=== PATIENT | male | born 1940 | race Caucasian/White ===

== ENCOUNTER 2018-09-10 04:30 | Inpatient (IN) ==
[2018-09-10] MEDS ORDERED: MethylPREDNISolone Sod Succinate Inj 125 MG/2 ML Vial IV.PUSH ONE (05:02)
--- NOTE | 2018-09-10 05:02 | ED ---
HPI General Chief Complaint: Respiratory Symptoms Stated Complaint: Sob Time Seen by Provider: 09/10/18 04:48 Source: patient Mode of arrival: ambulatory Limitations: no limitations History of Present Illness The patient is a 78-year-old male who presents to the emergency department for shortness of breath. The patient states he is visiting from [place] , came down for 2 weeks via car. The patient states that he developed symptoms 2 days ago including cough, chest congestion, and shortness of breath. The patient states his symptoms are worse with lying supine, slightly improved with sitting upright, but slightly exacerbated with exertion. The patient does note a fever yesterday of 99.4, has felt warm at home, but no fevers greater than 100.4. He denies any significant lower extremity edema or history of pulmonary embolism/DVT. The patient is anticoagulated with warfarin for history of atrial fibrillation. The patient denies any known history of COPD or congestive heart failure. The patient quit smoking 40 years ago. He denies any significant chest pain. He does not have a local primary physician. Symptoms are moderate and progressive. The patient went to an urgent care yesterday where he was diagnosed with bronchitis and placed on prednisone, Tessalon Perles, cough syrup, and doxycycline. The patient has not taken the dose of prednisone as of yet. Complaint: Reports shortness of breath Onset (ago): day(s) Context: Reports recent illness Severity: moderate Consistency/Duration: progressively worsening Relieving factors: nothing Exacerbating factors: lying flat and exertion Associated symptoms: Reports cough and wheezing Treatment prior to arrival: Reports other Related Data Home oxygen amount: none Home Medications Medication Instructions Recorded Confirmed benzonatate 100 mg PO TID PRN 09/10/18 09/10/18 codeine-guaifenesin [Robafen AC] 10 ml PO Q4-6H PRN 09/10/18 09/10/18 doxycycline hyclate 100 mg PO DAILY 09/10/18 09/10/18 prednisone 20 mg PO BID 09/10/18 09/10/18 Allergies Allergy/AdvReac Type Severity Reaction Status Date / Time No Known Allergies Allergy Verified 09/10/18 04:33 Review of Systems ROS: all other systems reviewed are negative [facility] Medical History Medical History A-fib (Acute) Achilles tendon injury (Acute) Diabetes (Acute) FH: radiation therapy (Acute) FHx: cholecystectomy (Acute) GERD (gastroesophageal reflux disease) (Acute) Glaucoma (Acute) Gout (Acute) Hypertension (Acute) Pacemaker (Acute) Prostate cancer (Acute) Stage 4 chronic kidney disease (Acute) Surgical History Surgical History H/O cataract removal with insertion of prosthetic lens (Acute) H/O hernia repair (Acute) H/O: hemorrhoidectomy (Acute) Hx of appendectomy (Acute) Social History Social History Substance History: No History of Abuse Second Hand Smoke Exposure: No Smoking Status: Former smoker How Often Do You Have a Drink Containing Alcohol: Monthly or less Recent Travel in [facility] within the Last 8 Weeks: No Recent Out of Country Travel within the Last 8 Weeks: No Immunization History Tetanus Immunization: Unsure Exam Narrative Exam Narrative: GENERAL: Awake, alert, pleasant 78-year-old male who appears his stated age and is in no acute respiratory distress. SKIN: Focused skin assessment warm/dry. HEAD: Atraumatic. Normocephalic. EYES: Pupils equal and round. No scleral icterus. No injection or drainage. ENT: No nasal bleeding or discharge. Mucous membranes pink and moist. NECK: Trachea midline. No JVD. CARDIOVASCULAR: Irregularly irregular, heart rate in the 90s. RESPIRATORY: No accessory muscle use. Clear to auscultation. Breath sounds equal bilaterally. GASTROINTESTINAL: Abdomen soft, non-tender, nondistended. MUSCULOSKELETAL: No obvious deformities. No clubbing. No cyanosis. The left calf appears slightly larger than the right, but both calves are soft to touch, negative Homans sign. NEUROLOGICAL: Awake and alert. No obvious cranial nerve deficits. Motor grossly within normal limits. Normal speech. PSYCHIATRIC: Appropriate mood and affect; insight and judgment normal. Course Initial Documented Vital Signs Temperature 99 F 09/10/18 04:34 Pulse Rate 83 09/10/18 04:34 Respiratory Rate 16 09/10/18 04:34 Blood Pressure 120/57 L 09/10/18 04:34 Pulse Oximetry 95 09/10/18 04:34 Last Documented Vital Signs Temperature 99 F 09/10/18 04:34 Pulse Rate 76 09/10/18 06:00 Respiratory Rate 18 02/15/19 06:00 Blood Pressure 146/70 H 09/10/18 06:00 Pulse Oximetry 94 L 09/10/18 06:00 Medical Decision Making MDM Narrative Medical decision making narrative: IV was placed, labs are drawn and sent, and the patient was placed on cardiac telemetry monitoring and continuous pulse oximetry monitoring. The patient had PT/INR sent to lab to evaluate PE/DVT risk. Chest x-ray was obtained. EKG was ordered and interpreted. The patient was administered Solu-Medrol 125 mg intravenously a DuoNeb x1. Chest x-ray reveals questionable bilateral interstitial infiltrates. BNP was elevated in the 600s. EKG revealed sinus rhythm with first-degree AV block, right bundle branch block. The patient has CKD 4, troponin was elevated greater than 2. The patient has no chest pain but does have shortness of breath. The patient denies any known history of coronary artery disease or previous stents. Patient is unable to have a CTA pulmonary angiogram secondary to CKD 4, INR was subtherapeutic at 1.7, therefore, VQ scan was ordered. A call was placed to the on-call band log mill and carriage operator at 6:12 AM in regards to possible anticoagulation as he is already on a call was placed to the on-call medical service for admission. I discussed the patient with Dr. Vasques who agrees with admission. I discussed the patient with Dr. Brewster, after discussion it was agreed there would be no further anticoagulation with an INR of 1.7. After discussion it was agreed the patient would have the nuc med VQ scan to evaluate for possible PE. The patient will be admitted to the medical service. I had a discussion with the patient and his and friend at bedside. Medical Screen Exam Complete: Yes Emergency Medical Condition: Yes Differential Diagnosis Differential Diagnosis: Differential diagnosis includes bronchitis, COPD exacerbation, pneumonia, pleural effusion, congestive heart failure, cardiomyopathy, pulmonary embolism, deconditioning. Lab Data Result diagrams: 09/10/18 05:05 09/10/18 05:05 Lab Results 09/10/18 09/10/18 09/10/18 Range/Units 05:05 05:05 05:05 WBC 8.7 (4.0-11.0) th/mm3 RBC 2.99 L (4.50-5.90) mil/mm3 Hgb 10.5 L (13.0-17.0) gm/dL Hct 30.2 L (39.0-51.0) % MCV 101.0 H (80.0-100.0) fL MCH 35.2 H (27.0-34.0) pg MCHC 34.8 (32.0-36.0) % RDW 14.0 (11.6-17.2) % Plt Count 141 L (150-450) th/mm3 MPV 7.4 (7.0-11.0) fL Neut % (Auto) 78.0 H (16.0-70.0) % Lymph % (Auto) 4.6 L (9.0-44.0) % Atkinson % (Auto) 15.5 H (0.0-8.0) % Eos % (Auto) 1.2 (0.0-4.0) % Baso % (Auto) 0.7 (0.0-2.0) % Neut # (Auto) 6.8 (1.8-7.7) th/mm3 Lymph # (Auto) 0.4 L (1.0-4.8) th/mm3 Atkinson # (Auto) 1.3 H (0.0-0.9) th/mm3 Eos # (Auto) 0.1 (0.0-0.4) th/mm3 Baso # (Auto) 0.1 (0.0-0.2) th/mm3 WBC Differential . Differential Comment Auto diff final PT (9.8-11.6) sec INR Ratio APTT (23.4-31.7) sec Sodium 137 (136-145) meq/L Potassium 4.0 (3.5-5.1) meq/L Chloride 106 (98-107) meq/L Carbon Dioxide 23.0 (21.0-32.0) meq/L Anion Gap 8 (5-15) meq/L BUN 40 H (7-18) mg/dL Creatinine 3.34 H (0.60-1.30) mg/dL Estimated GFR 18 L (>89) mL/min Random Glucose 175 H (74-106) mg/dL Calcium 8.1 L (8.5-10.1) mg/dL Magnesium 1.7 (1.5-2.5) mg/dL Total Bilirubin 0.8 (0.2-1.0) mg/dL AST 33 (15-37) U/L ALT 17 (12-78) U/L Alkaline Phosphatase 87 (45-117) U/L Total Creatine Kinase 686 H (39-308) U/L CK-MB (CK-2) 5.1 H (0.5-3.6) ng/mL CK-MB (CK-2) % 0.7 (0.0-4.0) % Troponin I 2.08 H* (0.02-0.05) ng/mL B-Natriuretic Peptide 696 H (0-100) pg/mL Total Protein 7.0 (6.4-8.2) g/dL Albumin 3.0 L (3.4-5.0) g/dL 09/10/18 Range/Units 05:05 WBC (4.0-11.0) th/mm3 RBC (4.50-5.90) mil/mm3 Hgb (13.0-17.0) gm/dL Hct (39.0-51.0) % MCV (80.0-100.0) fL MCH (27.0-34.0) pg MCHC (32.0-36.0) % RDW (11.6-17.2) % Plt Count (150-450) th/mm3 MPV (7.0-11.0) fL Neut % (Auto) (16.0-70.0) % Lymph % (Auto) (9.0-44.0) % Atkinson % (Auto) (0.0-8.0) % Eos % (Auto) (0.0-4.0) % Baso % (Auto) (0.0-2.0) % Neut # (Auto) (1.8-7.7) th/mm3 Lymph # (Auto) (1.0-4.8) th/mm3 Atkinson # (Auto) (0.0-0.9) th/mm3 Eos # (Auto) (0.0-0.4) th/mm3 Baso # (Auto) (0.0-0.2) th/mm3 WBC Differential Differential Comment PT 17.1 H (9.8-11.6) sec INR 1.7 Ratio APTT 53.7 H (23.4-31.7) sec Sodium (136-145) meq/L Potassium (3.5-5.1) meq/L Chloride (98-107) meq/L Carbon Dioxide (21.0-32.0) meq/L Anion Gap (5-15) meq/L BUN (7-18) mg/dL Creatinine (0.60-1.30) mg/dL Estimated GFR (>89) mL/min Random Glucose (74-106) mg/dL Calcium (8.5-10.1) mg/dL Magnesium (1.5-2.5) mg/dL Total Bilirubin (0.2-1.0) mg/dL AST (15-37) U/L ALT (12-78) U/L Alkaline Phosphatase (45-117) U/L Total Creatine Kinase (39-308) U/L CK-MB (CK-2) (0.5-3.6) ng/mL CK-MB (CK-2) % (0.0-4.0) % Troponin I (0.02-0.05) ng/mL B-Natriuretic Peptide (0-100) pg/mL Total Protein (6.4-8.2) g/dL Albumin (3.4-5.0) g/dL Imaging Data Radiologist's impression: Chest X-Ray 09/10/18 04:59 CONCLUSION: Bilateral interstitial infiltrates ECG Data EKG Prior to Arrival: No Attestation: I personally reviewed and interpreted this ECG as follows: Interpretation: EKG reveals sinus rhythm with first-degree AV block. HI interval 256 ms. Right bundle branch block. Q waves noted in lead V1. Discharge Plan Discharge Disposition Patient Disposition: ED Admit(ED Internal Use Only) Discharge Condition Condition: Stable Discharge Order Discharge Orders: ED Use Only Admit Order (Routine); Ordered 09/10/18 Ordered By: Godwin Decker Discharge Details Diagnosis: Non-ST elevation MS (NSTEMI), Dyspnea Physicians Team ED Provider: Godwin Decker Rxs /Orders / Referrals /Forms Prescriptions: No Action doxycycline hyclate 100 mg Capsule 100 mg PO DAILY RF: 0 prednisone 20 mg Tablet 20 mg PO BID RF: 0 benzonatate 100 mg Capsule 100 mg PO TID PRN (Reason: Cough) RF: 0 codeine-guaifenesin [Robafen AC] 10-100 mg/5 mL Liquid 10 ml PO Q4-6H PRN (Reason: Cough) RF: 0 Status ED Status: Admitted Patient
[2018-09-10 05:20] LABS: Baso # (Auto) 0.1 th/mm3 (0.0-0.2); Baso % (Auto) 0.7 % (0.0-2.0); Eos # (Auto) 0.1 th/mm3 (0.0-0.4); Eos % (Auto) 1.2 % (0.0-4.0); Hematocrit 30.2 % (39.0-51.0); Hemoglobin 10.5 gm/dL (13.0-17.0); Lymph # (Auto) 0.4 th/mm3 (1.0-4.8); Lymph % (Auto) 4.6 % (9.0-44.0); Mean Corpuscular HGB Conc 34.8 % (32.0-36.0); Mean Corpuscular Hemoglobin 35.2 pg (27.0-34.0); Mean Platelet Volume 7.4 fL (7.0-11.0); Mono # (Auto) 1.3 th/mm3 (0.0-0.9); Mono % (Auto) 15.5 % (0.0-8.0); Neut # (Auto) 6.8 th/mm3 (1.8-7.7); Platelet Count 141 th/mm3 (150-450); Red Blood Count 2.99 mil/mm3 (4.50-5.90); White Blood Count 8.7 th/mm3 (4.0-11.0)
[2018-09-10 05:35] LABS: Activated Partial Thrombo Time 53.7 sec (23.4-31.7); INR 1.7 Ratio; Prothrombin Time 17.1 sec (9.8-11.6)
--- NOTE | 2018-09-10 05:39 | XR ---
EXAM DATE: 09/10/2018 5:12 AM EST AGE/SEX: 78 years / Male INDICATIONS: Short of breath. CLINICAL DATA: This is the patient's initial encounter. Patient reports that signs and symptoms have been present for 1 day and indicates a pain score of 10/10. MEDICAL/SURGICAL HISTORY: Hypertension. Diabetes mellitus type II. Carcinoma, prostatic. Kid blaise disease. A-fib. Cholecystectomy. Appendectomy. Pacemaker. Hernia repair. COMPARISON: No prior exams available for comparison. FINDINGS: A pacing implement is present with control pack over left upper chest. Mild fairly symmetric intersti tial prominence bilaterally of undetermined chronicity. No evidence of consolidative airspace disease or significant effusion. Cardiac contours are satisfactory for technique and projection. CONCLUSION: Bilateral interstitial infiltrates Electronically signed by: Foster Thakur MD Board Certified Radiologist 09/10/2018 5:37 AM EST
[2018-09-10 05:47] LABS: Alanine Aminotransferase 17 U/L (12-78); Anion Gap 8 meq/L (5-15); Aspartate Aminotransferase 33 U/L (15-37); Blood Urea Nitrogen 40 mg/dL (7-18); Calcium 8.1 mg/dL (8.5-10.1); Chloride 106 meq/L (98-107); Glomerular Filtration Rate 18 mL/min (>89); Glucose,Random 175 mg/dL (74-106); Magnesium 1.7 mg/dL (1.5-2.5); Sodium 137 meq/L (136-145)
[2018-09-10 05:51] LABS: Alkaline Phosphatase 87 U/L (45-117); Creatine Kinase 686 U/L (39-308)
[2018-09-10 05:58] LABS: Troponin I 2.08 ng/mL (0.02-0.05)
[2018-09-10 06:10] LABS: CKMB Percent 0.7 % (0.0-4.0); Creatine Kinase MB 5.1 ng/mL (0.5-3.6)
[2018-09-10] MEDS ORDERED: Bisacodyl 10 MG Supp RECTAL PRN (06:26)
[2018-09-10] MEDS ORDERED: Acetaminophen 325 MG Tablet PO PRN (06:26)
--- NOTE | 2018-09-10 08:14 | P.CONCA ---
History of Present Illness Service: cardiology Consult date: 09/10/18 Reason for Consult: elevated troponin Primary Care Provider: Kenrick Wood Chief Complaint: SOB History of Present Illness: 78 yo male with CKD stage IV, pacemaker, paroxysmal atrial fibrillation and DMII presents with progressive SOB and cough x several days found to have elevated troponin level. He is in [place] visiting from [place] and developed cough 3 days ago, he went to urgent care 2 days ago and diagnosed with bronchitis. Last night he developed right-sided anterior chest discomfort described as sharp and non-radiating that felt worse with laying supine; non- exertional. His cough became semi-productive which prompted him to come to the ED. Initial troponin level elevated at 2.08, second level currently pending. EKG shows first degree AV block but no concerning ST segment or T wave changes. chest films show bilateral infiltrate. He is currently resting comfortably with head of bed elevated. He denies prior coronary artery disease; no palpitations or edema. Review of Systems All other systems reviewed negative except as stated in HPI [facility] - History History Provided By: Patient - Medical History Medical History: Medical History (Last Reviewed 09/10/18 @ 05:05 by Godwin Decker MD) A-fib Achilles tendon injury Diabetes FH: radiation therapy FHx: cholecystectomy GERD (gastroesophageal reflux disease) Glaucoma Gout Hypertension Pacemaker Prostate cancer Stage 4 chronic kidney disease - Surgical History Surgical History: Surgical History (Last Reviewed 09/10/18 @ 05:05 by Godwin Decker MD) H/O cataract removal with insertion of prosthetic lens H/O hernia repair H/O: hemorrhoidectomy Hx of appendectomy - Tobacco History Second Hand Smoke Exposure: No Tobacco Use In Past 30 Days: No Smoking Status: Former smoker - Alcohol History How Often Do You Have a Drink Containing Alcohol: Monthly or less - Substance Use History Substance History: No History of Abuse - Travel History Recent Travel in the [place] Within the Last 8 Weeks: No Recent Travel Out of the Country Within the Last 8 Weeks: No - Immunization History Tetanus Immunization: Unsure Medications and Allergies Allergies Allergy/AdvReac Type Severity Reaction Status Date / Time No Known Allergies Allergy Verified 09/10/18 04:33 Home Medications Medication Instructions Recorded Confirmed Type benzonatate 100 mg PO TID PRN 09/10/18 09/10/18 History codeine-guaifenesin [Robafen AC] 10 ml PO Q4-6H PRN 09/10/18 09/10/18 History doxycycline hyclate 100 mg PO DAILY 09/10/18 09/10/18 History prednisone 20 mg PO BID 09/10/18 09/10/18 History Active Medications: Active Medications Acetaminophen (Tylenol) 650 mg PO Q4H PRN PRN Reason: Temp > 100.4 Al Hydroxide/Mg Hydroxide (Milk Of Magnesia Liq) 30 ml PO Q12H PRN PRN Reason: Mild Constipation Bisacodyl (Dulcolax Supp) 10 mg RECTAL DAILY PRN PRN Reason: SEVERE CONSITIPATION Lactulose (Lactulose Liq) 30 ml PO DAILY PRN PRN Reason: SEVERE CONSITIPATION Ondansetron HCl (Zofran Inj) 4 mg IV.PUSH Q6H PRN PRN Reason: NAUSEA OR VOMITING Sennosides (Senokot) 17.2 mg PO Q12H PRN PRN Reason: Moderate Constipation Sodium Chloride (Ns Flush) 2 ml IV.FLUSH BID CORINE Sodium Chloride (Ns Flush) 2 ml IV.FLUSH PRN PRN PRN Reason: FLUSH AFTER USING IV ACCESS Exam Vital signs: Vital Signs 09/10/18 04:34 09/10/18 05:00 09/10/18 05:07 Temperature 99 F Pulse Rate 83 78 78 Respiratory Rate 16 16 Blood Pressure 120/57 L Pulse Oximetry 95 94 L 09/10/18 06:00 Temperature Pulse Rate 76 Respiratory Rate 18 Blood Pressure 146/70 H Pulse Oximetry 94 L Intake & Output 09/09/18 09/10/18 09/10/18 18:59 06:59 18:59 Weight 97.522 kg Narrative: GENERAL: SKIN: Warm and dry. HEAD: Normocephalic. EYES: No scleral icterus. No injection or drainage. NECK: Supple, trachea midline. No JVD or lymphadenopathy. CARDIOVASCULAR: Regular rate and rhythm without murmurs, gallops, or rubs. RESPIRATORY: bilateral exertional rhonchi. No accessory muscle use. GASTROINTESTINAL: Abdomen soft, non-tender, nondistended. MUSCULOSKELETAL: No cyanosis, or edema. Results 09/10/18 05:05 09/10/18 05:05 Cardiac Enzymes 09/10/18 09/10/18 Range/Units 05:05 05:05 AST 33 (15-37) U/L CK-MB (CK-2) 5.1 H (0.5-3.6) ng/mL Troponin I 2.08 H* (0.02-0.05) ng/mL B-Natriuretic Peptide 696 H (0-100) pg/mL Coagulation 09/10/18 09/10/18 Range/Units 05:05 05:05 PT 17.1 H (9.8-11.6) sec APTT 53.7 H (23.4-31.7) sec B-Natriuretic Peptide 696 H (0-100) pg/mL CBC 09/10/18 Range/Units 05:05 WBC 8.7 (4.0-11.0) th/mm3 RBC 2.99 L (4.50-5.90) mil/mm3 Hgb 10.5 L (13.0-17.0) gm/dL Hct 30.2 L (39.0-51.0) % Plt Count 141 L (150-450) th/mm3 Neut # (Auto) 6.8 (1.8-7.7) th/mm3 Lymph # (Auto) 0.4 L (1.0-4.8) th/mm3 [place] # (Auto) 1.3 H (0.0-0.9) th/mm3 Eos # (Auto) 0.1 (0.0-0.4) th/mm3 Baso # (Auto) 0.1 (0.0-0.2) th/mm3 Comprehensive Metabolic Panel 09/10/18 Range/Units 05:05 Sodium 137 (136-145) meq/L Potassium 4.0 (3.5-5.1) meq/L Chloride 106 (98-107) meq/L Carbon Dioxide 23.0 (21.0-32.0) meq/L BUN 40 H (7-18) mg/dL Creatinine 3.34 H (0.60-1.30) mg/dL Calcium 8.1 L (8.5-10.1) mg/dL AST 33 (15-37) U/L ALT 17 (12-78) U/L Alkaline Phosphatase 87 (45-117) U/L Total Protein 7.0 (6.4-8.2) g/dL Albumin 3.0 L (3.4-5.0) g/dL Intake and Output 02/14/19 02/15/19 02/15/19 22:59 06:59 14:59 Other: Weight 97.522 kg - Imaging and Cardiology Imaging: Impressions Chest X-Ray 09/10/18 04:59 CONCLUSION: Bilateral interstitial infiltrates Assessment and Plan - Assessment (1) Non-ST elevation NV (NSTEMI) Code(s): I21.4 - Non-ST elevation (NSTEMI) myocardial infarction Status: Acute - Plan 78 yo male with CKD stage IV, pacemaker, paroxysmal atrial fibrillation and DMII presents with progressive SOB and cough x several days found to have elevated troponin level. He is in [place] visiting from [place] and developed cough 3 days ago, he went to urgent care 2 days ago and diagnosed with bronchitis. Last night he developed right-sided anterior chest discomfort described as sharp and non-radiating that felt worse with laying supine; non- exertional. His cough became semi-productive which prompted him to come to the ED. Initial troponin level elevated at 2.08, second level currently pending. EKG shows first degree AV block but no concerning ST segment or T wave changes. chest films show bilateral infiltrate. He is currently resting comfortably with head of bed elevated. He denies prior coronary artery disease; no palpitations or edema. NSTEMI- initial troponin elevated @ 2.08. Will await serial levels and monitor trend along with serial EKGs to check for ischemic changes. chest pain appears atypical and likely due to lung infection assess 2D echo afib- currently in NSR, cont warfarin at home dosage. INR 1.7 CKD stage IV- patient sees nephrology at home in [place], he is uncertain of baseline kidney function. - Attending Attestation Non-ST elevation myocardial infarction Unclear to the reason for troponin elevation as his symptoms do not sound classic at all for angina. He did have progressive shortness of breath which may be an anginal equivalent. Patient also had subtherapeutic INR so pulmonary embolism is another consideration. Given his chronic kidney disease and creatinine of greater than 3.0 mg/dL, any contrast administration will put him at high risk for contrast-induced nephropathy and possible dialysis. Patient is scheduled for a ventilation perfusion scan this morning. If the ventilation perfusion scan is negative, then we will trend troponin. 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 If his troponin trends worse, he is likely then going to need an ischemic evaluation consisting of a cardiac catheterization. A Lexiscan would require 48 hours between the ventilation perfusion scan and Lexiscan timing. Cardiac catheterization with administration of contrast would certainly put him at risk for kidney failure requiring hemodialysis, which obviously he wants to avoid at all costs. We will follow up on 2D transthoracic echocardiogram. We will order for bilateral lower extremity duplex ultrasound to rule out deep vein thrombosis.
--- NOTE | 2018-09-10 10:41 | US ---
EXAM DATE: 09/10/2018 10:31 AM EST AGE/SEX: 78 years / Male INDICATIONS: Shortness of breath. Recent car travel. CLINICAL DATA: This is the patient's initial encounter. Patient reports that signs and symptoms have been present for 2 days and indicates a pain score of 0/10. MEDICAL/SURGICAL HISTORY: . Afib. Diabetic. Radiation. GERD. Glaucoma. HTN. Prostate canc er. CKD. . Cholecystectomy. Pacemaker. Cataract. Hernia repair. Hemorrhoidectomy. Appendectomy. COMPARISON: No prior exams available for comparison. TECHNIQUE: Venous ultrasound of both lower extremities was performed from the inguinal ligament to t he proximal calf. Real-time, color Doppler and spectral tracing, compression and augmentation techni ques were used. FINDINGS: Right Leg: Normal compression of the deep venous system from the inguinal region to the proximal zainab f. No echogenic clot is seen. Normal response of the venous system to augmentation and respiration. N ote is made of mild reflux involving the greater saphenous vein. Left Leg: Normal compression of the deep venous system from the inguinal region to the proximal calf . No echogenic clot is seen. Normal response of the venous system to augmentation and respiration. Other: None. CONCLUSION: 1. The study is negative for bilateral lower extremity deep venous thrombosis. Electronically signed by: Milo Gordon MD Board Certified Radiologist 09/10/2018 10:40 AM EST
--- NOTE | 2018-09-10 10:48 | P.HPIM ---
History of Present Illness Primary Care Physician: Kenrick Wood Chief Complaint: SOB and cough History of Present Illness: This is a 78-year-old male with history of diabetes mellitus, atrial fibrillation status post pacemaker placement, and chronic kidney disease stage IV presenting with shortness of breath and cough. Of note , patient is visiting here from [place] and is recently being worked up to rule out multiple myeloma. Patient started having shortness of breath associated with cough with occasional sputum production that is greenish about 3 days ago with note of congestion but no orthopnea or lower extremity swelling. There is no note of nausea, vomiting, fever, chills but his sister who he drove in the car with has upper respiratory tract infection. 2 days ago, he presented to the urgent care center who prescribed him doxycycline, prednisone and antitussives. Patient had single dose of everything that was prescribed but did not afford any relief. Yesterday, patient also started having right-sided chest discomfort which lasted for about 5 hours, described as sharp, nonradiating, not associated with nausea, vomiting, palpitations, blurring of vision. Of note, he drove down from [place] on August 26 for 3 days and arrived here August 29. There is no note of leg swelling after the drive. Also of particular importance, he was supposed to get his bone biopsy as part of his workup for multiple myeloma and has been off Coumadin for about 2 weeks. He restarted Coumadin before driving south. There is no history of pulmonary embolism, DVT, NC, stroke, CHF. He stopped smoking about 40 years ago. No significant family history. Diagnosis (1) Non-ST elevation [place] (NSTEMI): Inpatient Certification Inpatient Certification: I certify that the inpatient services were ordered in accordance with Medicare regulations governing the order. This includes certification that hospital inpatient services are reasonable and necessary and in the case of services not specified as inpatient-only under 42 CFR 419.22(n), that they are appropriately provided as inpatient services in accordance to with the 2-midnight benchmark under 43 CFR 412.3(e) Estimated Total Length of Stay (Days): 2 Plans for Post Hospital Care: Home Review of Systems Review of Systems: all other systems reviewed are negative ON LICENSE OF [facility] Medical History Medical History A-fib (Acute) Achilles tendon injury (Acute) Diabetes (Acute) FH: radiation therapy (Acute) FHx: cholecystectomy (Acute) GERD (gastroesophageal reflux disease) (Acute) Glaucoma (Acute) Gout (Acute) Hypertension (Acute) Pacemaker (Acute) Prostate cancer (Acute) Stage 4 chronic kidney disease (Acute) Surgical History Surgical History H/O cataract removal with insertion of prosthetic lens (Acute) H/O hernia repair (Acute) H/O: hemorrhoidectomy (Acute) Hx of appendectomy (Acute) Social History Social History Substance History: No History of Abuse Second Hand Smoke Exposure: No Smoking Status: Former smoker How Often Do You Have a Drink Containing Alcohol: Monthly or less Recent Travel in [facility] within the Last 8 Weeks: No Recent Out of Country Travel within the Last 8 Weeks: No Immunization History Tetanus Immunization: Unsure Medications and Allergies Allergies Allergy/AdvReac Type Severity Reaction Status Date / Time No Known Allergies Allergy Verified 09/10/18 04:33 Home Medications Medication Instructions Recorded Confirmed Type benzonatate 100 mg PO TID PRN 09/10/18 09/10/18 History codeine-guaifenesin [Robafen AC] 10 ml PO Q4-6H PRN 09/10/18 09/10/18 History doxycycline hyclate 100 mg PO DAILY 09/10/18 09/10/18 History prednisone 20 mg PO BID 09/10/18 09/10/18 History Active Medications: Active Medications Acetaminophen (Tylenol) 650 mg PO Q4H PRN PRN Reason: Temp > 100.4 Al Hydroxide/Mg Hydroxide (Milk Of Magnesia Liq) 30 ml PO Q12H PRN PRN Reason: Mild Constipation Bisacodyl (Dulcolax Supp) 10 mg RECTAL DAILY PRN PRN Reason: SEVERE CONSITIPATION Lactulose (Lactulose Liq) 30 ml PO DAILY PRN PRN Reason: SEVERE CONSITIPATION Ondansetron HCl (Zofran Inj) 4 mg IV.PUSH Q6H PRN PRN Reason: NAUSEA OR VOMITING Sennosides (Senokot) 17.2 mg PO Q12H PRN PRN Reason: Moderate Constipation Sodium Chloride (Ns Flush) 2 ml IV.FLUSH BID CORINE Last Admin: 09/10/18 09:51 Dose: 2 ml Sodium Chloride (Ns Flush) 2 ml IV.FLUSH PRN PRN PRN Reason: FLUSH AFTER USING IV ACCESS Physical Exam Vital signs: Vital Signs 09/10/18 04:34 09/10/18 05:00 09/10/18 05:07 Temperature 99 F Pulse Rate 83 78 78 Respiratory Rate 16 16 Blood Pressure 120/57 L Pulse Oximetry 95 94 L 09/10/18 06:00 09/10/18 09:00 Temperature Pulse Rate 76 74 Respiratory Rate 18 15 Blood Pressure 146/70 H 137/63 Pulse Oximetry 94 L 95 Intake & Output 09/09/18 09/10/18 09/10/18 18:59 06:59 18:59 Weight 97.522 kg Narrative: Not in distress, on room air Pupils equal round reactive, pink conjunctivae No JVD Regular rate and rhythm, no murmurs Bilateral rhonchi, occasional crackles in the left base. Abdomen soft, nontender No edema, no skull tenderness Alert awake and oriented x3, no cranial nerve deficits, no focal deficits. Results Labs CBC & Chem 7: 09/10/18 05:05 09/10/18 05:05 Imaging Impressions Chest X-Ray 09/10/18 04:59 CONCLUSION: Bilateral interstitial infiltrates Caprini VTE Risk Assessment Caprini VTE Risk Assessment: Moderate/High Risk (score >= 2) Caprini Risk Assessment Model: Point Value = 1 Point Value = 2 Point Value = 3 Point Value = 5 Age 41-60 Minor surgery BMI > 25 kg/m2 Swollen legs Varicose veins or History of unexplained or recurrent spontaneous Oral contraceptives or hormone replacement Sepsis (< 1 month) Serious lung disease, including pneumonia (< 1 month) Abnormal pulmonary function Acute myocardial infarction Congestive heart failure (< 1 month) History of inflammatory bowel disease Medical patient at bed rest Age 61-74 Arthroscopic surgery Major open surgery (> 45 min) Laparoscopic surgery (> 45 min) Malignancy Confined to bed (> 72 hours) Immobilizing plaster cast Central venous access Age >= 75 History of VTE Family history of VTE Factor V Leiden Prothrombin [id number] Lupus anticoagulant Anticardiolipin antibodies Elevated serum homocysteine Heparin-induced thrombocytopenia Other congenital or acquired thrombophilia Stroke (< 1 month) Elective arthroplasty Hip, pelvis, or leg fracture Acute spinal cord injury (< 1 month) Prophylaxis Regimen: Total Risk Factor Score Risk Level Prophylaxis Regimen 0-1 Low Early ambulation 2 Moderate Order ONE of the following: *Sequential Compression Device (SCD) *Heparin 5000 units SQ BID 3-4 Higher Order ONE of the following medications: *Heparin 5000 units SQ TID *Enoxaparin/Lovenox 40 mg SQ daily (WT < 150 kg, CrCl > 30 mL/min) *Enoxaparin/Lovenox 30 mg SQ daily (WT < 150 kg, CrCl > 10-29 mL/min) *Enoxaparin/Lovenox 30 mg SQ BID (WT < 150 kg, CrCl > 30 mL/min) AND/OR *Sequential Compression Device (SCD) 5 or more Highest Order ONE of the following medications: *Heparin 5000 units SQ TID (Preferred with Epidurals) *Enoxaparin/Lovenox 40 mg SQ daily (WT < 150 kg, CrCl > 30 mL/min) *Enoxaparin/Lovenox 30 mg SQ daily (WT < 150 kg, CrCl > 10-29 mL/min) *Enoxaparin/Lovenox 30 mg SQ BID (WT < 150 kg, CrCl > 30 mL/min) AND *Sequential Compression Device (SCD) Assessment and Plan (1) Non-ST elevation [place] (NSTEMI): Code(s): I21.4 - Non-ST elevation (NSTEMI) myocardial infarction Status: Acute Plan This is a 78-year-old male with history of diabetes mellitus, chronic kidney disease stage IV, atrial fibrillation status post pacemaker placement, recently being worked up for multiple myeloma presenting with progressive shortness of breath and cough for 3 days after driving about 2 weeks ago from [place]. Shortness of breath and cough, likely secondary to congestive heart failure exacerbation versus pneumonia - doubt COPD, no wheezing. BNP is elevated at 696 , chest x-ray showed bilateral infiltrates, no leukocytosis but with neutrophilic predominance and monocytosis. Patient also being worked up for multiple myeloma hence may be immunocompromised. Patient may have relatively low white blood cell count because of possible multiple myeloma. We will elect to treat for possible pneumonia and possible CHF for now, check Echo if shows diastolic dysfunction. Continue ceftriaxone and azithromycin, stop steroids, doubt COPD. Renal function precludes using a CTA of the chest to rule out PE, VQ scan low probability for PE based on presentation. Negative DVT on bilateral leg Doppler ultrasound. Non-ST elevated myocardial infarction-could be demand mediated, EKG showed first -degree AV block, troponin II 0.08, cardiology is following, echocardiogram as above. Continue serial troponin and EKG, chest pain could be from infection. If troponin is decreasing, may elect medical management per cardiology. If troponin gets worse, will need cardiac catheterization versus Lexiscan.Might proceed with a Lexiscan but would require 48 hours between VQ scan before doing a Lexiscan. Defer heparinization to cardiology. Atrial fibrillation-status post pacemaker placement, currently in sinus rhythm, continue Coumadin, pharmacy to dose, INR is 1.7 Chronic kidney disease stage IV-unsure baseline kidney function, monitor closely. Check I's and O's. DVT prophylaxis: Heparin
[2018-09-10 12:37] LABS: Activated Partial Thrombo Time 52.9 sec (23.4-31.7); INR 1.8 Ratio; Prothrombin Time 17.9 sec (9.8-11.6)
--- NOTE | 2018-09-10 13:01 | NM ---
EXAM DATE: 09/10/2018 12:58 PM EST AGE/SEX: 78 years / Male INDICATIONS: Short of breath. CLINICAL DATA: This is the patient's initial encounter. Patient reports that signs and symptoms have been present for 1 day and indicates a pain score of 4/10. MEDICAL/SURGICAL HISTORY: Carcinoma, prostatic. Renal failure, chronic. Hypertension. Pacemak er. Cholecystectomy. COMPARISON: [facility], CHEST 1V SINGLE AP, 09/10/2018. . DOSE: 2.3 mCi Tc99m DTPA aerosol 8.1 mCi Tc99m MAA IV TECHNIQUE: Following five minutes of tidal breathing of DTPA aerosol, planar images of the lungs wer e performed in eight projections. The patient was then injected with MAA, and eight-view perfusion s can was performed. FINDINGS: There is a homogeneous pattern of aerosol delivery to the periphery of both lungs. No focal ventilat ory defects are seen. There is minimal central deposition of aerosol. The perfusion lung scan demonstrates a homogenous pattern of uptake in both lungs. No segmental or s ubsegmental defects are seen. CONCLUSION: 1. Low probability pulmonary embolism. Electronically signed by: Milo Rodas MD Board Certified Radiologist 09/10/2018 1:00 PM EST
[2018-09-10 13:24] LABS: Troponin I 4.5 ng/mL (0.02-0.05)
[2018-09-10 13:36] LABS: CKMB Percent 1.8 % (0.0-4.0); Creatine Kinase MB 11.5 ng/mL (0.5-3.6)
--- NOTE | 2018-09-10 14:38 | ECG ---
Date Performed: 09/10/2018 Time Performed: 06:07:42 PTAGE: 78 years EKG: Sinus rhythm WITH FIRST DEGREE AV BLOCK MARKED LEFT AXIS DEVIATION RIGHT BUNDLE BRANCH BLOCK POSSIBLE ANTERIOR MY OCARDIAL INFARCTION ABNORMAL ECG NO PREVIOUS TRACING DOCTOR: Joaquina Flores Interpretating Date/Time 09/10/2018 14:32:56
[2018-09-10] MEDS: Azithromycin 250 MG Tablet PO SCH (15:07)
--- NOTE | 2018-09-10 15:41 | ECG ---
Date Performed: 09/10/2018 Time Performed: 11:36:33 PTAGE: 78 years EKG: Sinus rhythm WITH FIRST DEGREE AV BLOCK MARKED LEFT AXIS DEVIATION RIGHT BUNDLE BRANCH BLOCK ABNORMAL ECG Compare d to prior electrocardiogram, No significant change within the constraints of artifact on both EKGs. PREVIOUS TRACING : 09/10/2018 06.07 DOCTOR: Ancelmo Padilla Interpretating Date/Time 09/10/2018 15:41:01
[2018-09-10] MEDS ORDERED: Morphine Inj 4 MG/ML Vial IV.PUSH PRN (15:47)
[2018-09-10] MEDS ORDERED: Aspirin 325 MG Tablet PO ONE (15:53)
[2018-09-10] MEDS ORDERED: Nitroglycerin SL (Override) 0.4 MG Tab SL ONE (15:54)
[2018-09-10] MEDS ORDERED: Heparin 10,000 UNITS/10 ML Vial (for IV use) IV.PUSH STA (15:55)
[2018-09-10] MEDS ORDERED: Nitroglycerin Drip Premix 50 MG/250 ML BOTTLE IV.CONT PRN (15:55)
--- NOTE | 2018-09-10 16:05 | ECHRPT ---
Indication: SHORTNESS OF BREATH CONCLUSIONS Normal left ventricular size. Wall thickness is normal. Nonobstructive prominent basal hypertrophy is present consistent with sigmoid septum. The left ventricular systolic function is mildly reduced with an estimated ejection fraction in the range of 45- 50%. A pacemaker wire is noted. Mild thickening of the mitral valve leaflets. moderate to severe mitral valve regurgitation. There is trace tricuspid valve regurgitation. The estimated pulmonary arterial pressure is 34 mmHg. BP: / HR: Rhythm: Sinus/Paced MEASUREMENTS (Male / Female) Normal Values Technical Quality:Fair 2D ECHO LV Diastolic Diameter PLAX 5.6 cm 4.2 - 5.9 / 3.9 - 5.3 cm LV Systolic Diameter PLAX 4.1 cm IVS Diastolic Thickness 1.0 cm 0.6 - 1.0 / 0.6 - 0.9 cm LVPW Diastolic Thickness 1.1 cm 0.6 - 1.0 / 0.6 - 0.9 cm LV Relative Wall Thickness 0.4 RV Internal Dim ED PLAX 2.6 cm LVOT Diameter 2.0 cm Aortic Root Diameter 3.8 cm LA Systolic Diameter LX 3.9 cm 3.0 - 4.0 / 2.7 - 3.8 cm DOPPLER AV Peak Velocity 129.0 cm/s AV Peak Gradient 6.7 mmHg LVOT Peak Velocity 114.0 cm/s LVOT Peak Gradient 5.2 mmHg AV Area Cont Eq pk 2.8 cm Mitral E Point Velocity 106.0 cm/s Mitral A Point Velocity 104.0 cm/s Mitral E to A Ratio 1.0 LV E' Lateral Velocity 11.0 cm/s Mitral E to LV E' Lateral Ratio 9.6 LV E' Septal Velocity 7.7 cm/s Mitral E to LV E' Septal Ratio 13.8 TR Peak Velocity 245.0 cm/s TR Peak Gradient 24.0 mmHg Right Atrial Pressure 10.0 mmHg Pulmonary Artery Systolic Pressu 34.0 mmHg Right Ventricular Systolic Press 34.0 mmHg PV Peak Velocity 117.0 cm/s PV Peak Gradient 5.5 mmHg FINDINGS LEFT VENTRICLE Normal left ventricular size. Wall thickness is normal. Nonobstructive prominent basal hypertrophy is present consistent with sigmoid septum. The left ventricular systolic function is mildly reduced with an estimated ejection fraction in the range of 45- 50%. RIGHT VENTRICLE A pacemaker wire is noted. LEFT ATRIUM The left atrial size is normal. RIGHT ATRIUM The right atrial size is normal. ATRIAL SEPTUM Normal atrial septal thickness without atrial level shunting by limited color doppler interrogation. AORTA The aortic root and proximal ascending aorta are normal in size on limited imaging. MITRAL VALVE Mild thickening of the mitral valve leaflets. [id number] mitral valve regurgitation. AORTIC VALVE Trileaflet aortic valve. No aortic valve stenosis or regurgitation. TRICUSPID VALVE There is trace tricuspid valve regurgitation. The estimated pulmonary arterial pressure is 34 mmHg. PULMONARY VALVE No pulmonary valve regurgitation or stenosis. VESSELS The inferior vena cava is normal in size. PERICARDIUM No pericardial effusion. Sunny Burleson MD, FACC, [facility] (Electronically Signed) Final Date:10 September 2018 16:04
[2018-09-10] MEDS: Heparin Drip 25,000 UNIT/250 ML BAG IV.CONT PRN (16:43)
[2018-09-10 17:07] LABS: Activated Partial Thrombo Time 52.1 sec (23.4-31.7); INR 1.8 Ratio; Prothrombin Time 18.7 sec (9.8-11.6)
--- NOTE | 2018-09-10 17:34 | ECG ---
Date Performed: 09/10/2018 Time Performed: 16:02:34 PTAGE: 78 years EKG: Sinus rhythm with 1st degree A-V block. Left axis deviation RBBB with left anterior fascicular block Cannot rule out Inferior infarct - age undetermined Abnormal ECG No significant change from prior electrocardiogr am. PREVIOUS TRACING : 09/10/2018 11.36 DOCTOR: Ancelmo Padilla Interpretating Date/Time 09/10/2018 17:32:50
[2018-09-10] MEDS ORDERED: Dextrose 50% in Water 50 ML Vial IV.PUSH PRN (19:07)
[2018-09-10 19:51] LABS: CKMB Percent 1.6 % (0.0-4.0); Creatine Kinase MB 9.7 ng/mL (0.5-3.6)
[2018-09-10 20:10] LABS: Troponin I 2.34 ng/mL (0.02-0.05)
[2018-09-10] MEDS: Insulin NovoLOG Aspart Correctional Sugar Inj SQ SCH (20:48)
[2018-09-10] MEDS: amLODIPine 5 MG Tablet PO SCH (20:48)
[2018-09-10] MEDS: Pantoprazole Sodium 20 MG DR Tablet PO SCH (20:48)
[2018-09-10] MEDS: Carvedilol 12.5 MG Tablet PO SCH (20:48)
[2018-09-10] MEDS ORDERED: Heparin - SQ 10,000 UNITS/ML Vial SQ SCH (21:00)
--- NOTE | 2018-09-10 22:01 | ECG ---
Date Performed: 09/10/2018 Time Performed: 16:44:54 PTAGE: 78 years EKG: Sinus rhythm with 1st degree A-V block Left axis deviation RBBB with left anterior fascicular block Inferior infa rct - age undetermined Abnormal ECG No significant change from prior electrocardiogram. DOCTOR: Ancelmo Padilla Interpretating Date/Time 09/10/2018 22:01:04
[2018-09-10 23:53] LABS: Bilirubin,Urine Negative (Negative); Clarity,Urine Hazy (Clear); Color,Urine Yellow (Yellw/Straw); Glucose,Urine (UA) 50 mg/dL (Negative); Hyaline Casts,Urine 4 /lpf (0-3); Leukocyte Esterase,Urine Negative (Negative); Mucus,Urine Few /lpf (Occasional); Nitrite,Urine Negative (Negative); Specific Gravity,Urine 1.014 (1.002-1.035); Squamous Epithelial Cell,Urine <1 /hpf (0-5)
[2018-09-11 07:35] LABS: Baso % (Auto) 0.1 % (0.0-2.0); Hematocrit 28.8 % (39.0-51.0); Lymph # (Auto) 0.4 th/mm3 (1.0-4.8); Lymph % (Auto) 3.2 % (9.0-44.0); Mean Corpuscular HGB Conc 34.7 % (32.0-36.0); Mean Corpuscular Volume 100.8 fL (80.0-100.0); Mean Platelet Volume 8.4 fL (7.0-11.0); Mono % (Auto) 8.7 % (0.0-8.0); Neut # (Auto) 10.4 th/mm3 (1.8-7.7); Platelet Count 142 th/mm3 (150-450); Red Blood Count 2.86 mil/mm3 (4.50-5.90); White Blood Count 11.8 th/mm3 (4.0-11.0)
[2018-09-11 07:41] LABS: INR 1.9 Ratio
--- NOTE | 2018-09-11 08:00 | P.PNIM ---
Subjective Interval history: Follow-up for chest pain Chest pain resolved, no chest pain since last night, telemetry is fine. Shortness of breath stable. No fever or chills. No nausea or vomiting. A little impatient that there are still no answers. Physical Exam Vital signs: Vital Signs 09/10/18 08:00 09/10/18 09:00 09/10/18 10:36 Temperature Pulse Rate 76 74 Respiratory Rate 16 15 Blood Pressure 132/62 137/63 Pulse Oximetry 95 95 98 09/10/18 11:10 09/10/18 15:33 09/10/18 16:00 Temperature 98.1 F 98.9 F Pulse Rate 80 88 89 Respiratory Rate 16 17 16 Blood Pressure 137/68 145/70 H 137/73 Pulse Oximetry 98 97 96 09/10/18 19:00 09/10/18 20:00 09/10/18 21:00 Temperature 98.3 F Pulse Rate 100 H 92 H 96 H Respiratory Rate 18 Blood Pressure 125/73 Pulse Oximetry 98 09/10/18 22:00 09/10/18 23:00 09/11/18 00:00 Temperature 98.2 F Pulse Rate 92 H 91 H 88 Respiratory Rate 18 Blood Pressure 140/77 Pulse Oximetry 98 09/11/18 01:00 09/11/18 02:00 09/11/18 03:00 Temperature Pulse Rate 84 78 76 Respiratory Rate Blood Pressure Pulse Oximetry 09/11/18 04:00 09/11/18 05:00 09/11/18 06:00 Temperature 98.4 F Pulse Rate 68 68 89 Respiratory Rate 18 Blood Pressure 104/51 L Pulse Oximetry 97 Intake & Output 09/10/18 09/11/18 09/11/18 18:59 06:59 18:59 Intake Total 100 / 100 240 / 240 Output Total 200 / 200 Balance 100 / 100 40 / 40 Weight 97.8 kg 96.8 kg Intake: IV 100 / 100 Rocephin Inj 1,000 MG In NS Inj 100 / 100 100 ML @ 200 mls/hr IV.SIG Q24H [facility] Rx#:[id number] Oral 240 / 240 Output: Urine 200 / 200 Other: Weight On Admission 97.8 kg Narrative: Not in distress, on room air Pupils equal round reactive, pink conjunctivae No JVD Regular rate and rhythm, no murmurs Bilateral rhonchi, occasional crackles in the left base. Abdomen soft, nontender No edema, no skull tenderness Alert awake and oriented x3, no cranial nerve deficits, no focal deficits. Results Labs CBC & Chem 7: 09/11/18 06:07 09/11/18 06:07 Imaging Imaging: Impressions Pulmonary Perfusion Imaging 09/10/18 00:00 CONCLUSION: 1. Low probability pulmonary embolism. Venous Doppler Study 09/10/18 00:00 CONCLUSION: 1. The study is negative for bilateral lower extremity deep venous thrombosis. Assessment and Plan (1) Non-ST elevation [place] (NSTEMI): Code(s): I21.4 - Non-ST elevation (NSTEMI) myocardial infarction Status: Acute Plan This is a 78-year-old male with history of diabetes mellitus, chronic kidney disease stage IV, atrial fibrillation status post pacemaker placement, recently being worked up for multiple myeloma presenting with progressive shortness of breath and cough for 3 days after driving about 2 weeks ago from [place]. Shortness of breath and cough, likely secondary to pneumonia - doubt COPD, no wheezing. chest x-ray showed bilateral infiltrates, now with WBC of 11.8 leukocytosis with neutrophilic predominance and monocytosis. Patient also being worked up for multiple myeloma hence may be immunocompromised. Patient may have relatively low white blood cell count because of possible multiple myeloma. We will elect to treat for possible pneumonia and possible CHF for now. Continue ceftriaxone and azithromycin, stopped steroids, doubt COPD based on clinical presentation. Renal function precludes using a CTA of the chest to rule out PE, VQ scan showed low probability for PE. Negative DVT on bilateral leg Doppler ultrasound. Antitussives, duo nebs as needed. R/o diastolic CHF - TTE showed basal hyperthrophy with sigmoid septum, EF 45-50 % cardiology following Non-ST elevated myocardial infarction with chest pain-could be demand mediated vs UA, EKG showed first-degree AV block, RBBB, troponin maxed to 4.5 , now trending down. Might need cardiac catheterization versus Lexiscan.Might proceed with a Lexiscan but would require 48 hours between VQ scan before doing a Lexiscan. On heparin and NTG drip, aspirin daily. Morphine as needed for pain. Awaiting final input from cardiology. Any statins, check lipid panel, HgbA1c. Atrial fibrillation-status post pacemaker placement, currently in sinus rhythm, INR is 1.9, hold coumadin for now since patient is on heparin drip, follow INR daily. Continue Coreg, Multaq Diabetes mellitus-continue Levemir at home dose with sliding scale insulin. Hold Januvia. History of gout-hold allopurinol due to renal function. Hypertension-continue Norvasc, Coreg Chronic kidney disease stage IV, non-oliguric -unsure baseline creatinine, monitor closely. Continue indapamide. Check I's and O's. Consult nephrology, follow BMP daily. Creatinine today is a bit worse than yesterday. DVT prophylaxis: Heparin
[2018-09-11 08:25] LABS: Calcium 8.4 mg/dL (8.5-10.1); Carbon Dioxide 22.4 meq/L (21.0-32.0); Potassium 4.1 meq/L (3.5-5.1)
[2018-09-11] MEDS: Heparin Drip 25,000 UNIT/250 ML BAG IV.CONT PRN ×2 (08:26→19:10)
[2018-09-11] MEDS: Pantoprazole Sodium 20 MG DR Tablet PO SCH ×2 (08:56→20:23)
[2018-09-11] MEDS: Insulin NovoLOG Aspart Correctional Sugar Inj SQ SCH ×4 (08:57→20:30)
[2018-09-11] MEDS: amLODIPine 5 MG Tablet PO SCH (08:57)
[2018-09-11] MEDS: Carvedilol 12.5 MG Tablet PO SCH ×2 (08:57→20:23)
[2018-09-11] MEDS: Azithromycin 250 MG Tablet PO SCH (08:57)
[2018-09-11] MEDS: Docusate Sodium 100 MG Capsule PO SCH (08:57)
--- NOTE | 2018-09-11 10:28 | P.PNNP ---
Subjective Interval history: Patient is alert, no SOB , and no chest pain, eating well. Physical Exam Vital signs: Vital Signs 09/10/18 10:36 09/10/18 11:10 09/10/18 15:33 Temperature 98.1 F 98.9 F Pulse Rate 80 88 Respiratory Rate 16 17 Blood Pressure 137/68 145/70 H Pulse Oximetry 98 98 97 09/10/18 16:00 09/10/18 19:00 09/10/18 20:00 Temperature 98.3 F Pulse Rate 89 100 H 92 H Respiratory Rate 16 18 Blood Pressure 137/73 125/73 Pulse Oximetry 96 98 09/10/18 21:00 09/10/18 22:00 09/10/18 23:00 Temperature Pulse Rate 96 H 92 H 91 H Respiratory Rate Blood Pressure Pulse Oximetry 09/11/18 00:00 09/11/18 01:00 09/11/18 02:00 Temperature 98.2 F Pulse Rate 88 84 78 Respiratory Rate 18 Blood Pressure 140/77 Pulse Oximetry 98 09/11/18 03:00 09/11/18 04:00 09/11/18 05:00 Temperature 98.4 F Pulse Rate 76 68 68 Respiratory Rate 18 Blood Pressure 104/51 L Pulse Oximetry 97 09/11/18 06:00 09/11/18 08:42 Temperature 98.3 F Pulse Rate 89 78 Respiratory Rate 16 Blood Pressure 125/64 Pulse Oximetry 100 Intake & Output 09/10/18 09/11/18 09/11/18 18:59 06:59 18:59 Intake Total 100 / 100 240 / 240 250 / 250 Output Total 200 / 200 Balance 100 / 100 40 / 40 250 / 250 Weight 97.8 kg 96.8 kg Intake: IV 100 / 100 250 / 250 Heparin/D5W 25,000 U/250 mL 25, 250 / 250 000 unit In 250 ml @ Per Protocol IV.CONT TITRATE PRN Rx #:[id number] Rocephin Inj 1,000 MG In NS Inj 100 / 100 100 ML @ 200 mls/hr IV.SIG Q24H [facility] Rx#:[id number] Oral 240 / 240 Output: Urine 200 / 200 Other: Weight On Admission 97.8 kg Narrative: GENERAL: SKIN: Warm and dry. HEAD: Normocephalic. EYES: No scleral icterus. No injection or drainage. NECK: Supple, trachea midline. No JVD or lymphadenopathy. CARDIOVASCULAR: Regular rate and rhythm without murmurs, gallops, or rubs. RESPIRATORY: bilateral exertional rhonchi. No accessory muscle use. GASTROINTESTINAL: Abdomen soft, non-tender, nondistended. MUSCULOSKELETAL: No cyanosis, or edema. Assessment and Plan - Assessment (1) Stage 4 chronic kidney disease Code(s): N18.4 - Chronic kidney disease, stage 4 (severe) Status: Acute (2) Non-ST elevation [place] (NSTEMI) Code(s): I21.4 - Non-ST elevation (NSTEMI) myocardial infarction Status: Acute (3) Dyspnea Code(s): R06.00 - Dyspnea, unspecified Status: Acute Qualifiers: Dyspnea type: unspecified Qualified Code(s): R06.00 - Dyspnea, unspecified (4) Diabetes mellitus Code(s): E11.9 - Type 2 diabetes mellitus without complications Status: Acute - Plan Patient with stage 4 chronic kidney disease. He has been following with [facility]. As per patient he was told that he has GFR of 16 ml/min. Now he is admitted with chest pain and diagnosed with NSTEMI. Cardiology following. Creatinine remain close to his baseline. No urgent need for Dialysis. If need Cardiac Cath, may need HD. Discussed with the patient in detail.
--- NOTE | 2018-09-11 11:02 | US ---
EXAM DATE: 09/11/2018 10:46 AM EST AGE/SEX: 78 years / Male INDICATIONS: Elevated lab values. CLINICAL DATA: This is the patient's initial encounter. Patient reports that signs and symptoms have been present for 1 day and indicates a pain score of 0/10. MEDICAL/SURGICAL HISTORY: Gastroesophageal reflux disease. Hypertension. Carcinoma, prostatic . A-Fib. Achilles tendon injury. Diabetes. Glaucoma. Pacemaker. Stage 4 chronic kidney disease. Nini endectomy. Hemorrhoidectomy. Cataract removal with insertion of prosthetic lens. Hernia repair. COMPARISON: No prior exams available for comparison. MEASUREMENTS: Right Kidney:__10.6 x 6.4 x 4.7 cm Left Kidney:__8.9 x 4.9 x 4.8 cm FINDINGS: Right Kidney: Normal echogenicity and cortical thickness. Simple cyst in the upper pole measures 3.0 x 3.4 x 3.3 cm Left Kidney: Normal echogenicity and cortical thickness. No mass or hydronephrosis. Bladder: Within normal limits given the degree of distension. Other: None. CONCLUSION: 1. Right renal cyst. 2. Kidneys otherwise appear unremarkable. Electronically signed by: Timmy Mccrary MD Board Certified Radiologist 09/11/2018 11:00 AM EST
[2018-09-11 13:04] LABS: Hemoglobin A1c 6.7 % (4.3-6.0)
--- NOTE | 2018-09-11 18:20 | P.PNCA ---
Subjective Interval history: No chest pain, no arrhythmia. Discussed in length at bedside with patient and , answered many of their questions. Medications and Allergies Active Medications: Active Medications Acetaminophen (Tylenol) 650 mg PO Q4H PRN PRN Reason: Temp > 100.4 Al Hydroxide/Mg Hydroxide (Milk Of Magnesia Liq) 30 ml PO Q12H PRN PRN Reason: Mild Constipation Amlodipine Besylate (Norvasc) 5 mg PO DAILY [facility] Last Admin: 09/11/18 08:57 Dose: 5 mg Azithromycin (Zithromax) 500 mg PO DAILY [facility] Last Admin: 09/11/18 08:57 Dose: 500 mg Benzonatate (Tessalon Perles) 100 mg PO TID PRN PRN Reason: COUGH Bisacodyl (Dulcolax Supp) 10 mg RECTAL DAILY PRN PRN Reason: SEVERE CONSITIPATION Carvedilol (Coreg) 25 mg PO BID [facility] Last Admin: 09/11/18 08:57 Dose: 25 mg Dextrose (D50w Vial) 50 ml IV.PUSH UNSCH PRN PRN Reason: PER HYPOGLYCEMIA PROTOCOL Docusate Sodium (Colace) 100 mg PO DAILY [facility] Last Admin: 09/11/18 08:57 Dose: 100 mg Dronedarone (Multaq) 400 mg PO BID [facility] Last Admin: 09/11/18 08:57 Dose: 400 mg Glucagon (Glucagon Inj) 1 mg OTHER PRN PRN PRN Reason: for Hypoglycemia Protocol Guaifenesin/Codeine Phosphate (Robitussin Ac Liq) 10 ml PO Q6H PRN PRN Reason: IF BENZONATATE IS INEFFECTIV Ceftriaxone Sodium 1,000 mg/ (Sodium Chloride) 100 mls @ 200 mls/hr IV.SIG Q24H [facility] Last Admin: 09/11/18 14:58 Dose: 200 mls/hr Nitroglycerin/Dextrose (Nitroglycerin Drip Premix) 50 mg in 250 mls @ 0 mls/hr IV.CONT TITRATE PRN; Protocol PRN Reason: Per Protocol Heparin Sodium/Dextrose (Heparin/D5w 25,000 U/250 Ml) 25,000 unit in 250 mls @ 0 mls/hr IV.CONT TITRATE PRN; Protocol PRN Reason: Per Protocol Last Admin: 09/11/18 08:26 Dose: 800 units/hr, 8 mls/hr Insulin Aspart (Novolog Insulin Correctional Sugar Inj) 0 unit SQ ACHS [facility]; Protocol Last Admin: 09/11/18 13:32 Dose: 3 unit Insulin Detemir (Levemir Inj) 32 unit SQ QPM [facility] Lactulose (Lactulose Liq) 30 ml PO DAILY PRN PRN Reason: SEVERE CONSITIPATION Latanoprost (Xalatan 0.005% Opth Drops) 1 drop EACH EYE QPM [facility] Morphine Sulfate (Morphine Inj) 4 mg IV.PUSH Q4H PRN PRN Reason: BREAKTHROUGH PAIN Ondansetron HCl (Zofran Inj) 4 mg IV.PUSH Q6H PRN PRN Reason: NAUSEA OR VOMITING Pantoprazole Sodium (Protonix) 20 mg PO BID [facility] Last Admin: 09/11/18 08:56 Dose: 20 mg Sennosides (Senokot) 17.2 mg PO Q12H PRN PRN Reason: Moderate Constipation Sodium Chloride (Ns Flush) 2 ml IV.FLUSH BID [facility] Last Admin: 09/11/18 13:20 Dose: Not Given Sodium Chloride (Ns Flush) 2 ml IV.FLUSH PRN PRN PRN Reason: FLUSH AFTER USING IV ACCESS Tamsulosin HCl (Flomax) 0.4 mg PO DAILY [facility] Last Admin: 09/11/18 08:56 Dose: 0.4 mg Allergies Allergy/AdvReac Type Severity Reaction Status Date / Time No Known Allergies Allergy Verified 09/10/18 04:33 Home Medications Medication Instructions Recorded Confirmed Type allopurinol 100 mg PO BID 09/10/18 09/10/18 History amlodipine 5 mg PO DAILY 09/10/18 09/10/18 History benzonatate 100 mg PO TID PRN 09/10/18 09/10/18 History carvedilol 25 mg PO BID 09/10/18 09/10/18 History codeine-guaifenesin [Robafen AC] 10 ml PO Q4-6H PRN 09/10/18 09/10/18 History docusate sodium 100 mg PO DAILY 09/10/18 09/10/18 History doxycycline hyclate 100 mg PO DAILY 09/10/18 09/10/18 History dronedarone [Multaq] 400 mg PO BID 09/10/18 09/10/18 History indapamide 1.25 mg PO QAM 09/10/18 09/10/18 History insulin aspart U-100 [Novolog 1 sliding scale dose SUBCUT UD 09/10/18 09/10/18 History U-100 Insulin aspart] insulin detemir U-100 [Levemir 32 unit SUBCUT QPM 09/10/18 09/10/18 History U-100 Insulin] latanoprost 1 drp OPHTHALMIC (EYE) QPM 09/10/18 09/10/18 History omeprazole 20 mg PO BID 09/10/18 09/10/18 History prednisone 20 mg PO BID 09/10/18 09/10/18 History sitagliptin [Januvia] 50 mg PO DAILY 09/10/18 09/10/18 History tamsulosin 0.4 mg PO DAILY 09/10/18 09/10/18 History warfarin [Jantoven] 2 mg PO DAILY 09/10/18 09/10/18 History Physical Exam Vital signs: Vital Signs 09/10/18 19:00 09/10/18 20:00 09/10/18 21:00 Temperature 98.3 F Pulse Rate 100 H 92 H 96 H Respiratory Rate 18 Blood Pressure 125/73 Pulse Oximetry 98 09/10/18 22:00 09/10/18 23:00 09/11/18 00:00 Temperature 98.2 F Pulse Rate 92 H 91 H 88 Respiratory Rate 18 Blood Pressure 140/77 Pulse Oximetry 98 09/11/18 01:00 09/11/18 02:00 09/11/18 03:00 Temperature Pulse Rate 84 78 76 Respiratory Rate Blood Pressure Pulse Oximetry 09/11/18 04:00 09/11/18 05:00 09/11/18 06:00 Temperature 98.4 F Pulse Rate 68 68 89 Respiratory Rate 18 Blood Pressure 104/51 L Pulse Oximetry 97 09/11/18 08:00 09/11/18 08:42 09/11/18 12:00 Temperature 98.3 F 98.2 F Pulse Rate 78 76 Respiratory Rate 16 16 Blood Pressure 125/64 105/72 Pulse Oximetry 100 100 100 09/11/18 16:57 Temperature 97.9 F Pulse Rate 83 Respiratory Rate 16 Blood Pressure 127/69 Pulse Oximetry 99 Intake & Output 09/10/18 09/11/18 09/11/18 18:59 06:59 18:59 Intake Total 100 / 100 240 / 240 250 / 250 Output Total 200 / 200 Balance 100 / 100 40 / 40 250 / 250 Weight 97.8 kg 96.8 kg Intake: IV 100 / 100 250 / 250 Heparin/D5W 25,000 U/250 mL 25, 250 / 250 000 unit In 250 ml @ Per Protocol IV.CONT TITRATE PRN Rx #:[id number] Rocephin Inj 1,000 MG In NS Inj 100 / 100 100 ML @ 200 mls/hr IV.SIG Q24H CORINE Rx#:[id number] Oral 240 / 240 Output: Urine 200 / 200 Other: Weight On Admission 97.8 kg - Constitutional no acute distress - Routine HEENT Exam Eye: Present: EOMI, PERRL, conjunctivae pink ENT: Present: mucous membranes moist - Routine Neck Exam Present: supple, full ROM. Absent: JVD, carotid bruit - Routine Respiratory Exam Present: rales, distant breath sounds. Absent: respiratory distress - Routine Cardiovascular Exam Present: RRR, S1, S2 - Routine Abdominal Exam Present: soft - Routine Extremities Exam Present: full ROM. Absent: edema - Routine Skin Exam Present: intact - Routine Neurological Exam Present: alert, oriented X3, CN II-XII intact - Routine Psychiatric Exam Present: normal affect, normal thought process Results 09/11/18 06:07 09/11/18 06:07 Cardiac Enzymes 09/10/18 09/10/18 09/10/18 Range/Units 05:05 05:05 12:10 AST 33 (15-37) U/L CK-MB (CK-2) 5.1 H 11.5 H (0.5-3.6) ng/mL Troponin I 2.08 H* 4.50 H* (0.02-0.05) ng/mL B-Natriuretic Peptide 696 H (0-100) pg/mL 09/10/18 Range/Units 18:22 AST (15-37) U/L CK-MB (CK-2) 9.7 H (0.5-3.6) ng/mL Troponin I 2.34 H* (0.02-0.05) ng/mL B-Natriuretic Peptide (0-100) pg/mL Coagulation 09/10/18 09/10/18 09/10/18 Range/Units 05:05 05:05 12:10 PT 17.1 H 17.9 H (9.8-11.6) sec APTT 53.7 H 52.9 H (23.4-31.7) sec B-Natriuretic Peptide 696 H (0-100) pg/mL 09/10/18 09/10/18 09/10/18 Range/Units 16:21 21:32 22:57 PT 18.7 H (9.8-11.6) sec APTT 52.1 H 92.6 H* D 74.2 H (23.4-31.7) sec B-Natriuretic Peptide (0-100) pg/mL 09/11/18 09/11/18 Range/Units 06:07 13:49 PT 19.0 H (9.8-11.6) sec APTT 77.0 H 51.4 H D (23.4-31.7) sec B-Natriuretic Peptide (0-100) pg/mL CBC 09/10/18 09/11/18 Range/Units 05:05 06:07 WBC 8.7 11.8 H (4.0-11.0) th/mm3 RBC 2.99 L 2.86 L (4.50-5.90) mil/mm3 Hgb 10.5 L 10.0 L (13.0-17.0) gm/dL Hct 30.2 L 28.8 L (39.0-51.0) % Plt Count 141 L 142 L (150-450) th/mm3 Neut # (Auto) 6.8 10.4 H (1.8-7.7) th/mm3 Lymph # (Auto) 0.4 L 0.4 L (1.0-4.8) th/mm3 Emmons # (Auto) 1.3 H 1.0 H (0.0-0.9) th/mm3 Eos # (Auto) 0.1 0.0 (0.0-0.4) th/mm3 Baso # (Auto) 0.1 0.0 (0.0-0.2) th/mm3 Comprehensive Metabolic Panel 09/10/18 09/11/18 Range/Units 05:05 06:07 Sodium 137 135 L (136-145) meq/L Potassium 4.0 4.1 (3.5-5.1) meq/L Chloride 106 103 (98-107) meq/L Carbon Dioxide 23.0 22.4 (21.0-32.0) meq/L BUN 40 H 58 H (7-18) mg/dL Creatinine 3.34 H 3.59 H (0.60-1.30) mg/dL Calcium 8.1 L 8.4 L (8.5-10.1) mg/dL AST 33 (15-37) U/L ALT 17 (12-78) U/L Alkaline Phosphatase 87 (45-117) U/L Total Protein 7.0 (6.4-8.2) g/dL Albumin 3.0 L (3.4-5.0) g/dL Intake and Output 09/11/18 09/11/18 09/11/18 06:59 14:59 22:59 Intake Total 240 / 240 250 / 250 Output Total 200 / 200 Balance 40 / 40 250 / 250 Intake: IV 250 / 250 Heparin/D5W 25,000 U/250 mL 25, 250 / 250 000 unit In 250 ml @ Per Protocol IV.CONT TITRATE PRN Rx #:[id number] Oral 240 / 240 Output: Urine 200 / 200 Other: Weight 96.8 kg - Imaging and Cardiology Imaging: Impressions Pulmonary Perfusion Imaging 09/10/18 00:00 CONCLUSION: 1. Low probability pulmonary embolism. Venous Doppler Study 09/10/18 00:00 CONCLUSION: 1. The study is negative for bilateral lower extremity deep venous thrombosis. Chest X-Ray 09/10/18 04:59 CONCLUSION: Bilateral interstitial infiltrates Abdomen/Bladder Ultrasound 09/11/18 00:00 CONCLUSION: 1. Right renal cyst. 2. Kidneys otherwise appear unremarkable. Assessment and Plan - Plan 78 yo male with CKD stage IV, pacemaker, paroxysmal atrial fibrillation and DMII presents with progressive SOB and cough x several days found to have elevated troponin level. He is in [place] visiting from [place] and developed cough 3 days ago, he went to urgent care 2 days ago and diagnosed with bronchitis. Last night he developed right-sided anterior chest discomfort described as sharp and non-radiating that felt worse with laying supine; non- exertional. His cough became semi-productive which prompted him to come to the ED. Initial troponin level elevated at 2.08, second level currently pending. EKG shows first degree AV block but no concerning ST segment or T wave changes. chest films show bilateral infiltrate. He is currently resting comfortably with head of bed elevated. He denies prior coronary artery disease; no palpitations or edema. NSTEMI- initial troponin elevated @ 2.08 --> 4.5--> 2.34. Atypical chest pain, but high risk of CAD. Echo 09/10/18 LVEF 45-50%, moderate to severe MR. PASP 34. Continue IV heparin I have spent at least 40-45 min time to explain to patient and his the potential indication and risk of [facility] possible PCI. I answered many of their question to their satisfaction. Decision still to be made. I do believe diagnostic coronary angiogram with minimal contrast use, provides significant benefit, outweighs the potential risk of LYNN. afib- currently in NSR, Off Warfarin. On IV Heparin. CKD stage IV- Cr 3.5 on admission. patient sees nephrology at home in [place], he is uncertain of baseline kidney function.
[2018-09-11] MEDS: Insulin Detemir Inj 1,000 UNIT/10 ML Vial SQ SCH (18:23)
[2018-09-11] MEDS: Latanoprost 0.005% Opth Drops 2.5 ML Bottle EACH EYE SCH (18:24)
[2018-09-11] MEDS: Benzonatate 100 MG Capsule PO PRN (20:30)
[2018-09-11] MEDS: guaiFENesin/Codeine Syrup 200 MG/20 MG 10 ML UDC PO PRN (23:54)
[2018-09-12] MEDS: guaiFENesin/Codeine Syrup 200 MG/20 MG 10 ML UDC PO PRN ×2 (03:58→11:13)
[2018-09-12] MEDS: Pantoprazole Sodium 20 MG DR Tablet PO SCH ×2 (08:31→21:14)
[2018-09-12] MEDS: Benzonatate 100 MG Capsule PO PRN (08:31)
[2018-09-12] MEDS: Docusate Sodium 100 MG Capsule PO SCH (08:31)
[2018-09-12] MEDS: Azithromycin 250 MG Tablet PO SCH (08:32)
[2018-09-12] MEDS: Carvedilol 12.5 MG Tablet PO SCH ×2 (08:32→21:14)
[2018-09-12] MEDS: amLODIPine 5 MG Tablet PO SCH (08:33)
[2018-09-12] MEDS: Insulin NovoLOG Aspart Correctional Sugar Inj SQ SCH ×4 (08:33→21:14)
--- NOTE | 2018-09-12 09:18 | P.PNIM ---
Subjective Interval history: Follow-up for shortness of breath and chest pain Now on 1 L of oxygen. Blood pressure mostly controlled, afebrile. Had a coughing spell last night and started having substernal pain but milder, about 3 /10, sharp, nonradiating. Discussed extensively with family including patient, sister and , everyone agrees to get cardiac catheterization tomorrow. Physical Exam Vital signs: Vital Signs 09/11/18 10:00 09/11/18 11:00 09/11/18 12:00 Temperature 98.2 F Pulse Rate 74 72 75 Respiratory Rate 16 Blood Pressure 105/72 Pulse Oximetry 100 09/11/18 13:00 09/11/18 14:00 09/11/18 15:00 Temperature Pulse Rate 72 76 74 Respiratory Rate Blood Pressure Pulse Oximetry 09/11/18 16:00 09/11/18 16:57 09/11/18 17:00 Temperature 97.9 F Pulse Rate 77 83 78 Respiratory Rate 16 Blood Pressure 127/69 Pulse Oximetry 99 09/11/18 18:00 09/11/18 19:00 09/11/18 20:00 Temperature 98.2 F Pulse Rate 84 77 82 Respiratory Rate 20 Blood Pressure 119/63 Pulse Oximetry 97 09/11/18 21:00 09/11/18 22:00 09/11/18 23:00 Temperature Pulse Rate 88 74 86 Respiratory Rate Blood Pressure Pulse Oximetry 09/12/18 00:00 09/12/18 01:00 09/12/18 02:00 Temperature 98.7 F Pulse Rate 82 72 84 Respiratory Rate 20 Blood Pressure 102/55 L Pulse Oximetry 99 09/12/18 03:00 09/12/18 04:00 09/12/18 05:00 Temperature 98.2 F Pulse Rate 91 H 88 73 Respiratory Rate 20 Blood Pressure 153/71 H Pulse Oximetry 94 L 09/12/18 06:00 09/12/18 07:00 Temperature Pulse Rate 75 78 Respiratory Rate Blood Pressure Pulse Oximetry Intake & Output 09/11/18 09/12/18 09/12/18 18:59 06:59 18:59 Intake Total 350 / 350 730 / 730 Output Total 650 / 650 Balance 350 / 350 80 / 80 Weight 96.7 kg Intake: IV 350 / 350 250 / 250 Heparin/D5W 25,000 U/250 mL 25, 250 / 250 250 / 250 000 unit In 250 ml @ Per Protocol IV.CONT TITRATE PRN Rx #:[id number] Rocephin Inj 1,000 MG In NS Inj 100 / 100 100 ML @ 200 mls/hr IV.SIG Q24H CORINE Rx#:[id number] Oral 480 / 480 Output: Urine 650 / 650 Other: Date of Last Bowel Movement 09/12/18 # Bowel Movements 1 Narrative: Not in distress, on room air Pupils equal round reactive, pink conjunctivae No JVD Regular rate and rhythm, no murmurs Decreased breath sounds in the right base, no crackles or rhonchi at this time. Abdomen soft, nontender No edema, no skull tenderness Alert awake and oriented x3, no cranial nerve deficits, no focal deficits. Results Labs CBC & Chem 7: 09/12/18 08:03 09/11/18 06:07 Labs: Microbiology 09/11/18 15:30 Stool Stool Occult Blood ([facility]) - Final Hemoccult negative 09/11/18 12:08 Stool Stool Occult Blood ([facility]) - Final Hemoccult negative Imaging Imaging: Impressions Abdomen/Bladder Ultrasound 09/11/18 00:00 CONCLUSION: 1. Right renal cyst. 2. Kidneys otherwise appear unremarkable. Assessment and Plan Plan This is a 78-year-old male with history of diabetes mellitus, chronic kidney disease stage IV, atrial fibrillation status post pacemaker placement, recently being worked up for multiple myeloma presenting with progressive shortness of breath and cough for 3 days after driving about 2 weeks ago from [place]. Shortness of breath and cough, likely secondary to pneumonia - doubt COPD, no wheezing. chest x-ray showed bilateral infiltrates, now with WBC of 11.8 leukocytosis with neutrophilic predominance and monocytosis. Patient also being worked up for multiple myeloma hence may be immunocompromised. Patient may have relatively low white blood cell count because of possible multiple myeloma. We will elect to treat for possible pneumonia and possible CHF for now. Renal function precludes using a CTA of the chest to rule out PE, VQ scan showed low probability for PE. Negative DVT on bilateral leg Doppler ultrasound. Stopped steroids, doubt COPD based on clinical presentation. - Continue ceftriaxone and switch to oral azithromycin, Antitussives, duo nebs as needed, start Mucomyst nebs. R/o diastolic CHF - TTE showed basal hyperthrophy with sigmoid septum, EF 45-50% , moderate to severe MR, cardiology following Non-ST elevated myocardial infarction with chest pain-could be demand mediated vs UA, EKG showed first-degree AV block, RBBB, troponin maxed to 4.5 , now trending down. On heparin and NTG drip, aspirin daily. Morphine as needed for pain. Cardiology consulted. Recommendation is to do coronary graft with possible PCI, family including patient has unanimously decided to get cardiac catheterization. LDL is 42. Atrial fibrillation-status post pacemaker placement, currently in sinus rhythm, INR is 1.9, hold coumadin for now since patient is on heparin drip, follow INR daily. Continue Coreg, Multaq Diabetes mellitus-continue Levemir at home dose with sliding scale insulin. Hold Januvia. Hemoglobin A1c 6.7. History of gout-hold allopurinol due to renal function. Hypertension-continue Norvasc, Coreg Chronic kidney disease stage IV, non-oliguric -unsure baseline creatinine, monitor closely. Continue indapamide. Check I's and O's. Nephrology following. BMP daily. DVT prophylaxis: Heparin N.p.o. except meds at midnight. I spent 35 minutes [id number] with the patient or on the jeter discussing the patient's disposition, prognosis and plan of care with his/her caregivers. Over half of time spent was devoted to counseling the patient regarding prognosis, family agreed to do cardiac catheterization..
[2018-09-12 09:41] LABS: Hematocrit 28.1 % (39.0-51.0); Hemoglobin 9.7 gm/dL (13.0-17.0); Mean Corpuscular HGB Conc 34.5 % (32.0-36.0); Mean Corpuscular Hemoglobin 34.6 pg (27.0-34.0); Mean Corpuscular Volume 100.1 fL (80.0-100.0); Mean Platelet Volume 8.2 fL (7.0-11.0); Platelet Count 166 th/mm3 (150-450); Red Blood Count 2.81 mil/mm3 (4.50-5.90); Red Cell Distribution Width 13.8 % (11.6-17.2); White Blood Count 12.5 th/mm3 (4.0-11.0)
[2018-09-12 09:42] LABS: INR 2.2 Ratio
[2018-09-12] MEDS: RESP: Acetylcysteine 10% 4 ML Neb NEB SCH ×3 (12:04→23:56)
--- NOTE | 2018-09-12 14:31 | P.PNNP ---
Subjective Interval history: Patient is alert, has some chest pain last night, with nasal cannula. Physical Exam Vital signs: Vital Signs 09/11/18 15:00 09/11/18 16:00 09/11/18 16:57 Temperature 97.9 F Pulse Rate 74 77 83 Respiratory Rate 16 Blood Pressure 127/69 Pulse Oximetry 99 09/11/18 17:00 09/11/18 18:00 09/11/18 19:00 Temperature Pulse Rate 78 84 77 Respiratory Rate Blood Pressure Pulse Oximetry 09/11/18 20:00 09/11/18 21:00 09/11/18 22:00 Temperature 98.2 F Pulse Rate 82 88 74 Respiratory Rate 20 Blood Pressure 119/63 Pulse Oximetry 97 09/11/18 23:00 09/12/18 00:00 09/12/18 01:00 Temperature 98.7 F Pulse Rate 86 82 72 Respiratory Rate 20 Blood Pressure 102/55 L Pulse Oximetry 99 09/12/18 02:00 09/12/18 03:00 09/12/18 04:00 Temperature 98.2 F Pulse Rate 84 91 H 88 Respiratory Rate 20 Blood Pressure 153/71 H Pulse Oximetry 94 L 09/12/18 05:00 09/12/18 06:00 09/12/18 07:00 Temperature Pulse Rate 73 75 78 Respiratory Rate Blood Pressure Pulse Oximetry 09/12/18 08:00 09/12/18 09:00 09/12/18 10:00 Temperature 98.3 F Pulse Rate 74 80 76 Respiratory Rate 18 Blood Pressure 137/79 Pulse Oximetry 96 09/12/18 11:00 09/12/18 12:00 09/12/18 12:06 Temperature 98.5 F Pulse Rate 82 78 85 Respiratory Rate 18 18 Blood Pressure 133/71 Pulse Oximetry 97 95 09/12/18 13:00 Temperature Pulse Rate 74 Respiratory Rate Blood Pressure Pulse Oximetry Intake & Output 09/11/18 09/12/18 09/12/18 18:59 06:59 18:59 Intake Total 350 / 350 730 / 730 100 / 100 Output Total 650 / 650 Balance 350 / 350 80 / 80 100 / 100 Weight 96.7 kg Intake: IV 350 / 350 250 / 250 100 / 100 Heparin/D5W 25,000 U/250 mL 25, 250 / 250 250 / 250 000 unit In 250 ml @ Per Protocol IV.CONT TITRATE PRN Rx #:[id number] Rocephin Inj 1,000 MG In NS Inj 100 / 100 100 / 100 100 ML @ 200 mls/hr IV.SIG Q24H CORINE Rx#:[id number] Oral 480 / 480 Output: Urine 650 / 650 Other: Date of Last Bowel Movement 09/12/18 09/12/18 # Bowel Movements 1 Narrative: GENERAL: SKIN: Warm and dry. HEAD: Normocephalic. EYES: No scleral icterus. No injection or drainage. NECK: Supple, trachea midline. No JVD or lymphadenopathy. CARDIOVASCULAR: Regular rate and rhythm without murmurs, gallops, or rubs. RESPIRATORY: bilateral exertional rhonchi. No accessory muscle use. GASTROINTESTINAL: Abdomen soft, non-tender, nondistended. MUSCULOSKELETAL: No cyanosis, or edema. Assessment and Plan - Assessment (1) Stage 4 chronic kidney disease Code(s): N18.4 - Chronic kidney disease, stage 4 (severe) Status: Acute (2) Non-ST elevation MA (NSTEMI) Code(s): I21.4 - Non-ST elevation (NSTEMI) myocardial infarction Status: Acute (3) Dyspnea Code(s): R06.00 - Dyspnea, unspecified Status: Acute Qualifiers: Dyspnea type: unspecified Qualified Code(s): R06.00 - Dyspnea, unspecified (4) Diabetes mellitus Code(s): E11.9 - Type 2 diabetes mellitus without complications Status: Acute - Plan Patient with stage 4 chronic kidney disease. He has been following with Coordinating Producer. As per patient he was told that he has GFR of 16 ml/min. Now he is admitted with chest pain and diagnosed with NSTEMI. Cardiology following. Creatinine remain close to his baseline. No urgent need for Dialysis. For Cardiac Cath. tomorrow, will need HD. Discussed with the patient in detail. Will get PermCath and HD tomorrow after Cardiac Cath.
[2018-09-12] MEDS: Latanoprost 0.005% Opth Drops 2.5 ML Bottle EACH EYE SCH (17:18)
[2018-09-12] MEDS: Insulin Detemir Inj 1,000 UNIT/10 ML Vial SQ SCH (17:18)
--- NOTE | 2018-09-12 20:51 | P.PNCA ---
Subjective Interval history: Anxious, mild chest pain over night. Continue IV Heparin. Medications and Allergies Active Medications: Active Medications Acetaminophen (Tylenol) 650 mg PO Q4H PRN PRN Reason: Temp > 100.4 Acetylcysteine (Mucomyst 10% Neb) 2 ml NEB Q8HR NEB [facility] Last Admin: 09/12/18 16:12 Dose: 2 ml Al Hydroxide/Mg Hydroxide (Milk Of Magnesia Liq) 30 ml PO Q12H PRN PRN Reason: Mild Constipation Albuterol (Duoneb Neb (Prn)) 1 ampul NEB Q4HR NEB PRN PRN Reason: sob Last Admin: 09/12/18 16:08 Dose: 1 ampul Amlodipine Besylate (Norvasc) 5 mg PO DAILY [facility] Last Admin: 09/12/18 08:33 Dose: 5 mg Azithromycin (Zithromax) 500 mg PO DAILY [facility] Last Admin: 09/12/18 08:32 Dose: 500 mg Benzonatate (Tessalon Perles) 100 mg PO TID PRN PRN Reason: COUGH Last Admin: 09/12/18 08:31 Dose: 100 mg Bisacodyl (Dulcolax Supp) 10 mg RECTAL DAILY PRN PRN Reason: SEVERE CONSITIPATION Carvedilol (Coreg) 25 mg PO BID [facility] Last Admin: 09/12/18 08:32 Dose: 25 mg Dextrose (D50w Vial) 50 ml IV.PUSH UNSCH PRN PRN Reason: PER HYPOGLYCEMIA PROTOCOL Docusate Sodium (Colace) 100 mg PO DAILY [facility] Last Admin: 09/12/18 08:31 Dose: Not Given Dronedarone (Multaq) 400 mg PO BID [facility] Last Admin: 09/12/18 08:32 Dose: 400 mg Glucagon (Glucagon Inj) 1 mg OTHER PRN PRN PRN Reason: for Hypoglycemia Protocol Guaifenesin/Codeine Phosphate (Robitussin Ac Liq) 10 ml PO Q6H PRN PRN Reason: IF BENZONATATE IS INEFFECTIV Last Admin: 09/12/18 11:13 Dose: 10 ml Ceftriaxone Sodium 1,000 mg/ (Sodium Chloride) 100 mls @ 200 mls/hr IV.SIG Q24H [facility] Last Infusion: 09/12/18 12:10 Dose: Infused Nitroglycerin/Dextrose (Nitroglycerin Drip Premix) 50 mg in 250 mls @ 0 mls/hr IV.CONT TITRATE PRN; Protocol PRN Reason: Per Protocol Heparin Sodium/Dextrose (Heparin/D5w 25,000 U/250 Ml) 25,000 unit in 250 mls @ 0 mls/hr IV.CONT TITRATE PRN; Protocol PRN Reason: Per Protocol Last Admin: 09/11/18 19:10 Dose: 800 units/hr, 8 mls/hr Insulin Aspart (Novolog Insulin Correctional Sugar Inj) 0 unit SQ ACHS [facility]; Protocol Last Admin: 09/12/18 17:18 Dose: 1 unit Insulin Detemir (Levemir Inj) 32 unit SQ QPM [facility] Last Admin: 09/12/18 17:18 Dose: 32 unit Lactulose (Lactulose Liq) 30 ml PO DAILY PRN PRN Reason: SEVERE CONSITIPATION Latanoprost (Xalatan 0.005% Opth Drops) 1 drop EACH EYE QPM [facility] Last Admin: 09/12/18 17:18 Dose: 1 drop Morphine Sulfate (Morphine Inj) 4 mg IV.PUSH Q4H PRN PRN Reason: BREAKTHROUGH PAIN Last Admin: 09/12/18 03:58 Dose: 4 mg Ondansetron HCl (Zofran Inj) 4 mg IV.PUSH Q6H PRN PRN Reason: NAUSEA OR VOMITING Pantoprazole Sodium (Protonix) 20 mg PO BID [facility] Last Admin: 09/12/18 08:31 Dose: 20 mg Sennosides (Senokot) 17.2 mg PO Q12H PRN PRN Reason: Moderate Constipation Sodium Chloride (Ns Flush) 2 ml IV.FLUSH BID [facility] Last Admin: 09/12/18 08:33 Dose: 2 ml Sodium Chloride (Ns Flush) 2 ml IV.FLUSH PRN PRN PRN Reason: FLUSH AFTER USING IV ACCESS Tamsulosin HCl (Flomax) 0.4 mg PO DAILY [facility] Last Admin: 09/12/18 08:32 Dose: 0.4 mg Allergies Allergy/AdvReac Type Severity Reaction Status Date / Time No Known Allergies Allergy Verified 09/10/18 04:33 Home Medications Medication Instructions Recorded Confirmed Type allopurinol 100 mg PO BID 09/10/18 09/10/18 History amlodipine 5 mg PO DAILY 09/10/18 09/10/18 History benzonatate 100 mg PO TID PRN 09/10/18 09/10/18 History carvedilol 25 mg PO BID 09/10/18 09/10/18 History codeine-guaifenesin [Robafen AC] 10 ml PO Q4-6H PRN 09/10/18 09/10/18 History docusate sodium 100 mg PO DAILY 09/10/18 09/10/18 History doxycycline hyclate 100 mg PO DAILY 09/10/18 09/10/18 History dronedarone [Multaq] 400 mg PO BID 09/10/18 09/10/18 History indapamide 1.25 mg PO QAM 09/10/18 09/10/18 History insulin aspart U-100 [Novolog 1 sliding scale dose SUBCUT UD 09/10/18 09/10/18 History U-100 Insulin aspart] insulin detemir U-100 [Levemir 32 unit SUBCUT QPM 09/10/18 09/10/18 History U-100 Insulin] latanoprost 1 drp OPHTHALMIC (EYE) QPM 09/10/18 09/10/18 History omeprazole 20 mg PO BID 09/10/18 09/10/18 History prednisone 20 mg PO BID 09/10/18 09/10/18 History sitagliptin [Januvia] 50 mg PO DAILY 09/10/18 09/10/18 History tamsulosin 0.4 mg PO DAILY 09/10/18 09/10/18 History warfarin [Jantoven] 2 mg PO DAILY 09/10/18 09/10/18 History Physical Exam Vital signs: Vital Signs 09/11/18 21:00 09/11/18 22:00 09/11/18 23:00 Temperature Pulse Rate 88 74 86 Respiratory Rate Blood Pressure Pulse Oximetry 09/12/18 00:00 09/12/18 01:00 09/12/18 02:00 Temperature 98.7 F Pulse Rate 82 72 84 Respiratory Rate 20 Blood Pressure 102/55 L Pulse Oximetry 99 09/12/18 03:00 09/12/18 04:00 09/12/18 05:00 Temperature 98.2 F Pulse Rate 91 H 88 73 Respiratory Rate 20 Blood Pressure 153/71 H Pulse Oximetry 94 L 09/12/18 06:00 09/12/18 07:00 09/12/18 08:00 Temperature 98.3 F Pulse Rate 75 78 74 Respiratory Rate 18 Blood Pressure 137/79 Pulse Oximetry 96 09/12/18 09:00 09/12/18 10:00 09/12/18 11:00 Temperature Pulse Rate 80 76 82 Respiratory Rate Blood Pressure Pulse Oximetry 09/12/18 12:00 09/12/18 12:06 09/12/18 13:00 Temperature 98.5 F Pulse Rate 78 85 74 Respiratory Rate 18 18 Blood Pressure 133/71 Pulse Oximetry 97 95 09/12/18 14:00 09/12/18 15:00 09/12/18 16:00 Temperature 98.5 F Pulse Rate 84 74 80 Respiratory Rate 18 Blood Pressure 124/70 Pulse Oximetry 93 L 09/12/18 16:08 09/12/18 17:00 09/12/18 18:00 Temperature Pulse Rate 80 82 83 Respiratory Rate 18 Blood Pressure Pulse Oximetry 09/12/18 19:00 09/12/18 19:49 09/12/18 19:53 Temperature 98.0 F Pulse Rate 89 98 H Respiratory Rate 20 Blood Pressure 127/56 L Pulse Oximetry 92 L 92 L Intake & Output 09/12/18 09/12/18 09/13/18 06:59 18:59 06:59 Intake Total 730 / 730 760 / 760 Output Total 650 / 650 500 / 500 Balance 80 / 80 260 / 260 Weight 96.7 kg Intake: IV 250 / 250 100 / 100 Heparin/D5W 25,000 U/250 mL 25, 250 / 250 000 unit In 250 ml @ Per Protocol IV.CONT TITRATE PRN Rx #:[id number] Rocephin Inj 1,000 MG In NS Inj 100 / 100 100 ML @ 200 mls/hr IV.SIG Q24H [facility] Rx#:[id number] Oral 480 / 480 660 / 660 Output: Urine 650 / 650 500 / 500 Other: # Voids 1 Date of Last Bowel Movement 09/12/18 09/12/18 09/12/18 # Bowel Movements 1 - Constitutional no acute distress - Routine HEENT Exam Eye: Present: EOMI, PERRL - Routine Neck Exam Present: supple, full ROM. Absent: JVD, carotid bruit - Routine Respiratory Exam Present: CTA bilaterally - Routine Cardiovascular Exam Present: RRR, S1, S2 - Routine Abdominal Exam Present: soft, normoactive bowel sounds - Routine Skin Exam Present: intact - Routine Neurological Exam Present: alert, oriented X3, CN II-XII intact - Detailed Neurological Exam: Coma Scale Eye Opening: Spontaneous - Routine Psychiatric Exam Present: normal affect Results 09/12/18 08:03 09/11/18 06:07 Coagulation 09/10/18 09/10/18 09/11/18 Range/Units 21:32 22:57 06:07 PT 19.0 H (9.8-11.6) sec APTT 92.6 H* D 74.2 H 77.0 H (23.4-31.7) sec 09/11/18 09/11/18 09/12/18 Range/Units 13:49 20:10 08:03 PT 22.0 H (9.8-11.6) sec APTT 51.4 H D 49.5 H (23.4-31.7) sec 09/12/18 Range/Units 08:03 PT (9.8-11.6) sec APTT 55.7 H (23.4-31.7) sec Lipids 09/12/18 Range/Units 08:03 Triglycerides 165 H (42-150) mg/dL Cholesterol 100 L (120-200) mg/dL HDL Cholesterol 25.0 L (40.0-60.0) mg/dL Cholesterol/HDL Ratio 4.00 Ratio CBC 09/11/18 09/12/18 Range/Units 06:07 08:03 WBC 11.8 H 12.5 H (4.0-11.0) th/mm3 RBC 2.86 L 2.81 L (4.50-5.90) mil/mm3 Hgb 10.0 L 9.7 L (13.0-17.0) gm/dL Hct 28.8 L 28.1 L (39.0-51.0) % Plt Count 142 L 166 (150-450) th/mm3 Neut # (Auto) 10.4 H (1.8-7.7) th/mm3 Lymph # (Auto) 0.4 L (1.0-4.8) th/mm3 [place] # (Auto) 1.0 H (0.0-0.9) th/mm3 Eos # (Auto) 0.0 (0.0-0.4) th/mm3 Baso # (Auto) 0.0 (0.0-0.2) th/mm3 Comprehensive Metabolic Panel 09/11/18 Range/Units 06:07 Sodium 135 L (136-145) meq/L Potassium 4.1 (3.5-5.1) meq/L Chloride 103 (98-107) meq/L Carbon Dioxide 22.4 (21.0-32.0) meq/L BUN 58 H (7-18) mg/dL Creatinine 3.59 H (0.60-1.30) mg/dL Calcium 8.4 L (8.5-10.1) mg/dL Intake and Output 09/12/18 09/12/18 09/12/18 06:59 14:59 22:59 Intake Total 480 / 480 100 / 100 660 / 660 Output Total 650 / 650 500 / 500 Balance -170 / -170 100 / 100 160 / 160 Intake: IV 100 / 100 Rocephin Inj 1,000 MG In NS Inj 100 / 100 100 ML @ 200 mls/hr IV.SIG Q24H [facility] Rx#:[id number] Oral 480 / 480 660 / 660 Output: Urine 650 / 650 500 / 500 Other: # Voids 1 Date of Last Bowel Movement 09/12/18 09/12/18 09/12/18 # Bowel Movements 1 Weight 96.7 kg - Imaging and Cardiology Imaging: Impressions Abdomen/Bladder Ultrasound 09/11/18 00:00 CONCLUSION: 1. Right renal cyst. 2. Kidneys otherwise appear unremarkable. Assessment and Plan - Plan 78 yo male with CKD stage IV, pacemaker, paroxysmal atrial fibrillation and DMII presents with progressive SOB and cough x several days found to have elevated troponin level. He is in [place] visiting from [place] and developed cough 3 days ago, he went to urgent care 2 days ago and diagnosed with bronchitis. Last night he developed right-sided anterior chest discomfort described as sharp and non-radiating that felt worse with laying supine; non- exertional. His cough became semi-productive which prompted him to come to the ED. Initial troponin level elevated at 2.08, second level currently pending. EKG shows first degree AV block but no concerning ST segment or T wave changes. chest films show bilateral infiltrate. He is currently resting comfortably with head of bed elevated. He denies prior coronary artery disease; no palpitations or edema. NSTEMI- initial troponin elevated @ 2.08 --> 4.5--> 2.34. Atypical chest pain, but high risk of CAD. Echo 09/10/18 LVEF 45-50%, moderate to severe MR. PASP 34. Continue IV heparin I have spent at least 40-45 min time to explain to patient and his the potential indication and risk of LHC possible PCI. I answered many of their question to their satisfaction. Decision still to be made. I do believe diagnostic coronary angiogram with minimal contrast use, provides significant benefit, outweighs the potential risk of LYNN. afib- currently in NSR, Off Warfarin. On IV Heparin. CKD stage IV- Cr 3.5 on admission. patient sees nephrology at home in [place], he is uncertain of baseline kidney function. 09/12/18: Patient has decided to proceed LHC possible PCI He understood potential risk including worsening renal function INR 2.2 from 1.7. D[address]. Brewster, will give 10 mg IV Vit K. Will check INR in AM Tentatively LHC tomorrow if INR less than 1.8, Ney Mireles will arrange BMP not done today. Will check BMP tonight. He is a bit nervous. will try low dose of Restoril Minimal contrast will be used for diagnostic coronary angiogram, and PCI will only be performed if critical lesion present. otherwise, staging PCI will be the strategy to reduce risk of LYNN. I do not think placing HD catheter immediately after LHC is necessary unless patient demonstrates acute renal failure,if so then HD catheter can be placed then. Dr. Brewster will resume care of the patient tomorrow.
[2018-09-12] MEDS ORDERED: Phytonadione Inj 10 MG in Sodium Chlor 0.9% Inj 50 ML IV.SIG ONE (20:58)
[2018-09-12 22:06] LABS: Calcium 7.8 mg/dL (8.5-10.1); Carbon Dioxide 22.5 meq/L (21.0-32.0); Potassium 4.3 meq/L (3.5-5.1)
[2018-09-13] MEDS: Heparin Drip 25,000 UNIT/250 ML BAG IV.CONT PRN ×2 (04:09→12:35)
[2018-09-13] MEDS ORDERED: Metoprolol Tartrate 25 MG Tablet PO SCH (05:00)
--- NOTE | 2018-09-13 07:44 | P.PNCA ---
Subjective Interval history: No chest pain or palpitations. Continues to be short of breath with cough, unchanged since admission, worsened by nebulizer. Medications and Allergies Allergies Allergy/AdvReac Type Severity Reaction Status Date / Time No Known Allergies Allergy Verified 09/10/18 04:33 Home Medications Medication Instructions Recorded Confirmed Type allopurinol 100 mg PO BID 09/10/18 09/10/18 History amlodipine 5 mg PO DAILY 09/10/18 09/10/18 History benzonatate 100 mg PO TID PRN 09/10/18 09/10/18 History carvedilol 25 mg PO BID 09/10/18 09/10/18 History codeine-guaifenesin [Robafen AC] 10 ml PO Q4-6H PRN 09/10/18 09/10/18 History docusate sodium 100 mg PO DAILY 09/10/18 09/10/18 History doxycycline hyclate 100 mg PO DAILY 09/10/18 09/10/18 History dronedarone [Multaq] 400 mg PO BID 09/10/18 09/10/18 History indapamide 1.25 mg PO QAM 09/10/18 09/10/18 History insulin aspart U-100 [Novolog 1 sliding scale dose SUBCUT UD 09/10/18 09/10/18 History U-100 Insulin aspart] insulin detemir U-100 [Levemir 32 unit SUBCUT QPM 09/10/18 09/10/18 History U-100 Insulin] latanoprost 1 drp OPHTHALMIC (EYE) QPM 09/10/18 09/10/18 History omeprazole 20 mg PO BID 09/10/18 09/10/18 History prednisone 20 mg PO BID 09/10/18 09/10/18 History sitagliptin [Januvia] 50 mg PO DAILY 09/10/18 09/10/18 History tamsulosin 0.4 mg PO DAILY 09/10/18 09/10/18 History warfarin [Jantoven] 2 mg PO DAILY 09/10/18 09/10/18 History Active Medications: Active Medications Acetaminophen (Tylenol) 650 mg PO Q4H PRN PRN Reason: Temp > 100.4 Acetylcysteine (Mucomyst 10% Neb) 2 ml NEB Q8HR NEB [facility] Last Admin: 09/12/18 23:56 Dose: 2 ml Al Hydroxide/Mg Hydroxide (Milk Of Magnesia Liq) 30 ml PO Q12H PRN PRN Reason: Mild Constipation Albuterol (Duoneb Neb (Prn)) 1 ampul NEB Q4HR NEB PRN PRN Reason: sob Last Admin: 09/12/18 23:56 Dose: 1 ampul Amlodipine Besylate (Norvasc) 5 mg PO DAILY [facility] Last Admin: 09/12/18 08:33 Dose: 5 mg Azithromycin (Zithromax) 500 mg PO DAILY [facility] Last Admin: 09/12/18 08:32 Dose: 500 mg Benzonatate (Tessalon Perles) 100 mg PO TID PRN PRN Reason: COUGH Last Admin: 09/12/18 08:31 Dose: 100 mg Bisacodyl (Dulcolax Supp) 10 mg RECTAL DAILY PRN PRN Reason: SEVERE CONSITIPATION Carvedilol (Coreg) 25 mg PO BID [facility] Last Admin: 09/12/18 21:14 Dose: 25 mg Dextrose (D50w Vial) 50 ml IV.PUSH UNSCH PRN PRN Reason: PER HYPOGLYCEMIA PROTOCOL Docusate Sodium (Colace) 100 mg PO DAILY [facility] Last Admin: 09/12/18 08:31 Dose: Not Given Dronedarone (Multaq) 400 mg PO BID [facility] Last Admin: 09/12/18 21:13 Dose: 400 mg Glucagon (Glucagon Inj) 1 mg OTHER PRN PRN PRN Reason: for Hypoglycemia Protocol Guaifenesin/Codeine Phosphate (Robitussin Ac Liq) 10 ml PO Q6H PRN PRN Reason: IF BENZONATATE IS INEFFECTIV Last Admin: 09/12/18 11:13 Dose: 10 ml Ceftriaxone Sodium 1,000 mg/ (Sodium Chloride) 100 mls @ 200 mls/hr IV.SIG Q24H [facility] Last Infusion: 09/12/18 12:10 Dose: Infused Nitroglycerin/Dextrose (Nitroglycerin Drip Premix) 50 mg in 250 mls @ 0 mls/hr IV.CONT TITRATE PRN; Protocol PRN Reason: Per Protocol Heparin Sodium/Dextrose (Heparin/D5w 25,000 U/250 Ml) 25,000 unit in 250 mls @ 0 mls/hr IV.CONT TITRATE PRN; Protocol PRN Reason: Per Protocol Last Admin: 09/13/18 04:09 Dose: 800 units/hr, 8 mls/hr Insulin Aspart (Novolog Insulin Correctional Sugar Inj) 0 unit SQ ACHS [facility]; Protocol Last Admin: 09/12/18 21:14 Dose: 5 unit Insulin Detemir (Levemir Inj) 32 unit SQ QPM [facility] Last Admin: 09/12/18 17:18 Dose: 32 unit Lactulose (Lactulose Liq) 30 ml PO DAILY PRN PRN Reason: SEVERE CONSITIPATION Latanoprost (Xalatan 0.005% Opth Drops) 1 drop EACH EYE QPM [facility] Last Admin: 09/12/18 17:18 Dose: 1 drop Morphine Sulfate (Morphine Inj) 4 mg IV.PUSH Q4H PRN PRN Reason: BREAKTHROUGH PAIN Last Admin: 09/12/18 03:58 Dose: 4 mg Ondansetron HCl (Zofran Inj) 4 mg IV.PUSH Q6H PRN PRN Reason: NAUSEA OR VOMITING Pantoprazole Sodium (Protonix) 20 mg PO BID [facility] Last Admin: 09/12/18 21:14 Dose: 20 mg Sennosides (Senokot) 17.2 mg PO Q12H PRN PRN Reason: Moderate Constipation Sodium Chloride (Ns Flush) 2 ml IV.FLUSH BID [facility] Last Admin: 09/12/18 21:14 Dose: 2 ml Sodium Chloride (Ns Flush) 2 ml IV.FLUSH PRN PRN PRN Reason: FLUSH AFTER USING IV ACCESS Tamsulosin HCl (Flomax) 0.4 mg PO DAILY [facility] Last Admin: 09/12/18 08:32 Dose: 0.4 mg Physical Exam Vital signs: Vital Signs 09/12/18 08:00 09/12/18 09:00 09/12/18 10:00 Temperature 98.3 F Pulse Rate 74 80 76 Respiratory Rate 18 Blood Pressure 137/79 Pulse Oximetry 96 09/12/18 11:00 09/12/18 12:00 09/12/18 12:06 Temperature 98.5 F Pulse Rate 82 78 85 Respiratory Rate 18 18 Blood Pressure 133/71 Pulse Oximetry 97 95 09/12/18 13:00 09/12/18 14:00 09/12/18 15:00 Temperature Pulse Rate 74 84 74 Respiratory Rate Blood Pressure Pulse Oximetry 09/12/18 16:00 09/12/18 16:08 09/12/18 17:00 Temperature 98.5 F Pulse Rate 80 80 82 Respiratory Rate 18 18 Blood Pressure 124/70 Pulse Oximetry 93 L 09/12/18 18:00 09/12/18 19:00 09/12/18 19:49 Temperature 98.0 F Pulse Rate 83 89 98 H Respiratory Rate 20 Blood Pressure 127/56 L Pulse Oximetry 92 L 09/12/18 19:53 09/12/18 20:00 09/12/18 21:00 Temperature Pulse Rate 100 H 92 H Respiratory Rate Blood Pressure Pulse Oximetry 92 L 09/12/18 21:30 09/12/18 22:00 09/12/18 23:00 Temperature Pulse Rate 98 H 86 Respiratory Rate Blood Pressure Pulse Oximetry 93 L 09/12/18 23:58 09/13/18 00:00 09/13/18 01:00 Temperature 98.3 F Pulse Rate 81 88 86 Respiratory Rate 18 20 Blood Pressure 125/59 L Pulse Oximetry 92 L 09/13/18 02:00 09/13/18 03:00 09/13/18 03:47 Temperature 98.9 F Pulse Rate 86 90 90 Respiratory Rate 20 Blood Pressure 117/62 Pulse Oximetry 93 L 09/13/18 04:00 09/13/18 05:00 09/13/18 06:00 Temperature Pulse Rate 86 82 97 H Respiratory Rate Blood Pressure Pulse Oximetry 09/13/18 07:29 09/13/18 07:30 Temperature 98.0 F Pulse Rate 93 H Respiratory Rate 18 Blood Pressure 124/68 Pulse Oximetry 95 95 Intake & Output 09/12/18 09/13/18 09/13/18 18:59 06:59 18:59 Intake Total 760 / 760 541 / 541 Output Total 500 / 500 550 / 550 Balance 260 / 260 -9 / -9 Weight 214 lb 11.684 oz Intake: IV 100 / 100 301 / 301 Heparin/D5W 25,000 U/250 mL 25, 250 / 250 000 unit In 250 ml @ Per Protocol IV.CONT TITRATE PRN Rx #:[id number] Vitamin K Inj 10 MG In NS Inj 51 / 51 50 ML @ 102 mls/hr IV.SIG ONCE ONE Rx#:[id number] Rocephin Inj 1,000 MG In NS Inj 100 / 100 100 ML @ 200 mls/hr IV.SIG Q24H [facility] Rx#:[id number] Oral 660 / 660 240 / 240 Output: Urine 500 / 500 550 / 550 Other: # Voids 1 Date of Last Bowel Movement 09/12/18 09/12/18 09/13/18 Narrative: GENERAL: Well-developed well-nourished. In no acute distress. NECK: No carotid bruits. No JVD. CARDIOVASCULAR: Regular rate and rhythm. No murmur appreciated. RESPIRATORY: No accessory muscle use. Clear to auscultation. Breath sounds equal bilaterally. MUSCULOSKELETAL: No clubbing or cyanosis. No edema. NEUROLOGICAL: Awake and alert. Normal speech. Results 09/13/18 07:20 09/13/18 07:20 Coagulation 09/11/18 09/11/18 09/11/18 Range/Units 06:07 13:49 20:10 PT 19.0 H (9.8-11.6) sec APTT 77.0 H 51.4 H D 49.5 H (23.4-31.7) sec 09/12/18 09/12/18 Range/Units 08:03 08:03 PT 22.0 H (9.8-11.6) sec APTT 55.7 H (23.4-31.7) sec Lipids 09/12/18 Range/Units 08:03 Triglycerides 165 H (42-150) mg/dL Cholesterol 100 L (120-200) mg/dL HDL Cholesterol 25.0 L (40.0-60.0) mg/dL Cholesterol/HDL Ratio 4.00 Ratio CBC 09/11/18 09/12/18 Range/Units 06:07 08:03 WBC 11.8 H 12.5 H (4.0-11.0) th/mm3 RBC 2.86 L 2.81 L (4.50-5.90) mil/mm3 Hgb 10.0 L 9.7 L (13.0-17.0) gm/dL Hct 28.8 L 28.1 L (39.0-51.0) % Plt Count 142 L 166 (150-450) th/mm3 Neut # (Auto) 10.4 H (1.8-7.7) th/mm3 Lymph # (Auto) 0.4 L (1.0-4.8) th/mm3 [place] # (Auto) 1.0 H (0.0-0.9) th/mm3 Eos # (Auto) 0.0 (0.0-0.4) th/mm3 Baso # (Auto) 0.0 (0.0-0.2) th/mm3 Comprehensive Metabolic Panel 09/11/18 09/12/18 Range/Units 06:07 21:23 Sodium 135 L 134 L (136-145) meq/L Potassium 4.1 4.3 (3.5-5.1) meq/L Chloride 103 101 (98-107) meq/L Carbon Dioxide 22.4 22.5 (21.0-32.0) meq/L BUN 58 H 78 H (7-18) mg/dL Creatinine 3.59 H 3.74 H (0.60-1.30) mg/dL Calcium 8.4 L 7.8 L (8.5-10.1) mg/dL Intake and Output 09/12/18 09/13/18 09/13/18 22:59 06:59 14:59 Intake Total 711 / 711 490 / 490 Output Total 500 / 500 550 / 550 Balance 211 / 211 -60 / -60 Intake: IV 250 / 250 Heparin/D5W 25,000 U/250 mL 25, 250 / 250 000 unit In 250 ml @ Per Protocol IV.CONT TITRATE PRN Rx #:[id number] Vitamin K Inj 10 MG In NS Inj 50 ML @ 102 mls/hr IV.SIG ONCE ONE Rx#:[id number] Oral 660 / 660 240 / 240 Output: Urine 500 / 500 550 / 550 Other: # Voids 1 Date of Last Bowel Movement 09/12/18 09/12/18 09/13/18 Weight 214 lb 11.684 oz - Imaging and Cardiology Imaging: Impressions Abdomen/Bladder Ultrasound 09/11/18 00:00 CONCLUSION: 1. Right renal cyst. 2. Kidneys otherwise appear unremarkable. Assessment and Plan - Assessment (1) Non-ST elevation SD (NSTEMI) Code(s): I21.4 - Non-ST elevation (NSTEMI) myocardial infarction Status: Acute - Plan 78 yo male with CKD stage IV, pacemaker, paroxysmal atrial fibrillation and DMII presented with right-sided chest pain, progressive SOB and cough x several days found to have elevated troponin level. He is in [place] visiting from [place] and developed cough 3 days ago, he went to urgent care 2 days ago and diagnosed with bronchitis. Night of admission, he developed right-sided anterior chest discomfort described as sharp and non-radiating that felt worse with laying supine; non-exertional. His cough became semi-productive which prompted him to come to the ED. Initial troponin level elevated at 2.08, second further elevated to 4.5. EKG shows first degree AV block but no concerning ST segment or T wave changes. chest films show bilateral infiltrate. He is currently resting comfortably with head of bed elevated. He denies prior coronary artery disease; no palpitations or edema. NSTEMI: Troponins 2.08 --> 4.5--> 2.34. Echo 09/10/18 LVEF 45-50%, moderate to severe MR. PASP 34. Continue heparin gtt and carvedilol. Start Imdur 30 mg daily. ALEXEY-I/ARB unable to be used due to CKD. C today with Dr Brewster following placement of a Permacath for initiation of HD. Patient accepts the risks of possible permanent need for HD if he were to undergo LHC. Mitral regurgitation: Moderate-severe. LHC as above. If patient has significant obstructive CAD, would likely benefit from JARON and CTS evaluation for combined MVR and CABG. Determination of timing for management of MR pending his [facility] results. ADHF, systolic: JVP approximately 12cm. start furosemide 40mg daily. Afib: currently in NSR. Warfarin held, follow-up INR. Heparin GTT for now with pending procedures. CKD stage IV- Cr 3.5 on admission. patient sees nephrology at home in [place]. Nephrology on board. Discussed Condition With: Patient with RN at bedside, Dr. Brewster - Attending Attestation [facility] today will d/w nephrology about permacath/dialysis mod-severe MR probable CTS consult
[2018-09-13 07:55] LABS: Hematocrit 27.6 % (39.0-51.0); Hemoglobin 9.7 gm/dL (13.0-17.0); Mean Corpuscular HGB Conc 35.3 % (32.0-36.0); Mean Corpuscular Hemoglobin 35.4 pg (27.0-34.0); Mean Corpuscular Volume 100.2 fL (80.0-100.0); Mean Platelet Volume 8.3 fL (7.0-11.0); Platelet Count 178 th/mm3 (150-450); Red Blood Count 2.75 mil/mm3 (4.50-5.90); Red Cell Distribution Width 14.1 % (11.6-17.2); White Blood Count 10.9 th/mm3 (4.0-11.0)
[2018-09-13 08:04] LABS: Activated Partial Thrombo Time 48.1 sec (23.4-31.7); INR 1.3 Ratio; Prothrombin Time 13.2 sec (9.8-11.6)
[2018-09-13] MEDS: Insulin NovoLOG Aspart Correctional Sugar Inj SQ SCH ×4 (08:16→21:09)
--- NOTE | 2018-09-13 08:23 | MB ---
cc: Martha Ortiz MD DATE: 09/10/2018 REASON FOR CONSULTATION: Chronic kidney disease with elevated BUN and creatinine. HISTORY OF PRESENT ILLNESS: This is a 78-year-old male with a past medical history of hypertension, ischemic heart disease, chronic kidney disease, diabetes mellitus, hyperlipidemia, history of prostate cancer. Came to the hospital with complaint of shortness of breath and chest pain. I was called to see the patient because of elevated BUN and creatinine. We do not have any ____ labs for the patient because he is visiting here from [place] and it was found that his creatinine is 3.34. The patient has retrosternal chest pain and shortness of breath. He was supposed to go ____ and he came in here because of the chest pain and shortness of breath. The patient was seen by cardiology. He had been given sublingual nitroglycerin, aspirin, and he is on IV heparin. I saw him late afternoon today and at that time, he did not have any chest pain, but he has a mild shortness of breath, but it was better than before. He denies any nausea, vomiting. There is no history of dysuria or hematuria. 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 He does not remember exactly how much was his creatinine. PAST MEDICAL HISTORY: Hypertension, diabetes mellitus, hyperlipidemia, ischemic heart disease, history of pacemaker, prostate cancer, stage IV chronic kidney disease. PAST SURGICAL HISTORY: Cholecystectomy, cardiac catheterization, history of pacemaker placement, cataract surgery, appendicectomy, hernia repair. REVIEW OF SYSTEMS: The patient denies any history of fever. No headache, dizziness, or blurring of vision. He has some worsening shortness of breath, more with exertion, and has retrosternal chest pain, more on the right side, not associated with any exertion. He denies any nausea, vomiting. No abdominal pain. No history of diarrhea. 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 No history of heavy alcoholism. FAMILY HISTORY: Noncontributory. ALLERGIES: HE HAS NO KNOWN DRUG ALLERGIES. MEDICATIONS: Currently, he is on following medications: 1. Tylenol as needed. 2. Milk of magnesia as needed. 3. Norvasc 5 mg once a day. 4. Azithromycin 500 mg daily. 5. Tessalon 100 mg twice daily. 6. Dulcolax suppository as needed. 7. Coreg 25 mg twice daily. 8. Ceftriaxone 1 gram IV every 24 hour. 9. Colace 100 mg daily. 10. Multaq 400 mg twice daily, but is seeing 6 hours as needed. 11. Heparin IV. 12. Insulin as per sliding scale. 13. Levemir 32 units subcutaneous at night. 14. Lactulose 30 mL daily. 15. Morphine as needed. 16. Nitroglycerin as needed. 17. Zofran as needed. 18. Protonix 20 mg twice daily. 19. Senokot 17.2 mg every 12 hours. 20. Flomax 0.4 mg daily. PHYSICAL EXAMINATION: GENERAL: Patient is awake, alert. He is not in acute distress. There is no significant hypotensive episode during this admission. VITAL SIGNS: His last blood pressure is 125/73, temperature is 98.3, oxygen saturation on 2 liters nasal cannula is 98%. HEENT: Pupils are mid constricted. Nonicteric sclerae. Conjunctivae normal. NECK: Supple. ____ HEART: Regular rate and rhythm. ABDOMEN: Soft. LUNGS: ____ bowel sounds positive. EXTREMITIES: There is no pedal edema. LABORATORY STUDIES: Hematocrit 8.7, hemoglobin 10.5, platelet count of 141. Neutrophils 78%, eosinophil 1.2%. PTT 792.6. Sodium 137, potassium 4.0, chloride 106, bicarbonate 23, BUN 40, creatinine 3.34. Last blood glucose is 375. Calcium is 8.1, magnesium 1.7, AST is 33, ALT is 17, creatinine kinase is 598. The last one we have ____ 4.5 before that. BNP was 696, total protein 7.0, albumin 3.0. IMAGING STUDIES: The patient had a chest x-ray done, which shows bilateral interstitial infiltrate. The patient also has a venous Doppler study done, which shows that patient has no deep vein thrombosis. Pulmonary perfusion imaging was done, which shows that he has low probability for pulmonary embolism. ASSESSMENT AND PLAN: 1. Stage IV chronic kidney disease. 2. Chest pain with elevated troponin. 3. Hypertension. 4. Diabetes mellitus. 5. History of prostate cancer. The patient has a slightly increased troponin and now it is decreasing. Seen by cardiology and considering a cardiac catheterization only if the troponin continues to increase. At present, his chest pain is better. The patient has stage IV chronic kidney disease and he has a creatinine now 3.3 with a GFR of 18. If he needs a ____ he probably will need dialysis after that. The risk of dialysis discussed with the patient. He is currently continuing on the IV heparin. We will wait for further input from the cardiology. Since the patient has been following with nephrology, I will not go all the workup, but I will just check his urine to see if he has proteinuria and get ultrasound of the kidneys to make sure he does not have any obstruction. Thank you for the consultation. Avoid any nephrotoxins. I will follow the patient while he is in the hospital and further recommendation will be given in due course. MD CHAPO Gaines/leticia/osmin , 10:13 PM , 10:27 PM
[2018-09-13 08:29] LABS: Calcium 8.2 mg/dL (8.5-10.1); Carbon Dioxide 24.5 meq/L (21.0-32.0)
[2018-09-13] MEDS: Azithromycin 250 MG Tablet PO SCH (08:31)
[2018-09-13] MEDS: Carvedilol 12.5 MG Tablet PO SCH ×2 (08:31→21:08)
[2018-09-13] MEDS: Pantoprazole Sodium 20 MG DR Tablet PO SCH ×2 (08:31→21:09)
[2018-09-13] MEDS: amLODIPine 5 MG Tablet PO SCH (08:31)
[2018-09-13] MEDS: Docusate Sodium 100 MG Capsule PO SCH (08:31)
[2018-09-13] MEDS: Isosorbide Mononitrate 30 MG ER 24HR Tablet (Imdur) PO SCH (08:34)
[2018-09-13] MEDS: RESP: Acetylcysteine 10% 4 ML Neb NEB SCH ×2 (09:24→16:14)
[2018-09-13] MEDS ORDERED: Heparin/NS PF Inj 1,000 ML ONE (09:45)
[2018-09-13] MEDS ORDERED: fentaNYL Citrate Inj 100 MCG/2 ML Ampul ONE (09:46)
[2018-09-13] MEDS ORDERED: Heparin 10,000 UNITS/10 ML Vial (for IV use) ONE (09:46)
[2018-09-13] MEDS ORDERED: Misc Info for Pharmacy OTHER STA (10:22)
--- NOTE | 2018-09-13 10:26 | P.PCN ---
Date of procedure: 09/13/18 Pre-op diagnosis: Non-ST elevation myocardial infarction Procedure: cement gun operator: Jalil Brewster MD Procedures performed: 1. Fluoroscopy with interpretation 2. Coronary angiography 3. Left heart catheterization Methods: Risks, benefits, and alternatives were discussed with the patient. Patient understood and consented to the procedure. Patient was brought into the cardiac catheterization lab and placed on the catheterization table. The patient's right wrist was prepped and draped in a sterile fashion. The right wrist was anesthetized with 1% lidocaine. Right wrist was cannulated and a 6 Bangladeshi 11 cm sheath was placed without difficulty. 200 mcg of intra-arterial nitroglycerin was administered and 5000 units of intravenous heparin. Left heart catheterization: Intraventricular contractures 88 over 8 mmHg the left ventricular end-diastolic pressure 10 mmHg Coronary angiography: The left main coronary artery was selectively engaged with a 5 Bangladeshi JL 3.5 Trung catheter. The right coronary circulation was selectively engaged with a 5 Bangladeshi JR 5 Trung catheter. 1. Left main coronary artery has only minor luminal irregularities 2. Left anterior descending coronary artery is diffusely diseased throughout. There is moderate calcium present through the entire proximal segment at the level of the trifurcation of 2 diagonal branches and the remainder left anterior descending coronary artery all 3 branches have 90% stenosis. The distal left anterior descending coronary has mild to moderate calcific disease but no high-grade obstruction. 3. Left circumflex coronary artery is codominant giving rise to a small left- sided posterior descending branch. There is a moderate sized ramus intermedius branch with a 95% proximal stenosis. There is 2 obtuse marginal branches which are small caliber size and have 80% stenosis proximally. The proximal left circumflex coronary artery has 50% stenosis. 4. Right coronary is a dominant vessel giving rise to the posterior descending branch. The right coronary artery has 30% stenosis proximally. Mid segment has minor luminal irregularities Conclusions: 1. Severe [place] three-vessel coronary artery disease 2. Moderate to severe mitral regurgitation 3. Normal left-sided filling pressures Plan: Guideline directed medical therapy. Sheath removed and Hemoband applied. Monitor for postprocedural complications. We will obtain cardiothoracic surgical consultation for consideration of coronary artery bypass surgery and mitral valve replacement
--- NOTE | 2018-09-13 10:29 | CATHPROC ---
[id number] HIS Report Study Information Study Number Admission Scheduled Start Study Start [id number] Sep 10 2018 6:17AM 09/13/2018 Sep 13 2018 9:36AM [place] [facility] Cardiac Catheterization Admit Source Facility Department Emergency department [facility] Physician and Clinical Staff Initial Piotr Almazan Rig Builder Raman Dorado,CRISTINE Other cathlab, cathlab Recorder Leroy Garcia RCIS(BS) Scrub Brii Moreno ,RT(R) Procedures Performed Procedure Location (Site) Vessel Name Coronary Angiograms LCA Left Coronary Coronary Angiograms RCA Right Coronary L Heart Cath Equipment Time Career Coordinator Description Size Mfg Part Number Used/Scraped TRANSDUCER, TRUWAVE [id number] 09:45 RUBIN ARCE * Used W/STOCKCOCK *[id number] *[id number] 09:45 Bomoda BLANKET,WARM AIR CCL * Used *[id number] 09:45 Bomoda PACK, CCL CUSTOM * Used *[id number] 09:45 Bomoda SUPPORT, ARTERIAL ADULT [id number] *[id number] Used [id number] 10:13 MEDTRONIC JL 3.5 DXTERITY CATHETER FR 5 Used *[id number] BAND, RADIAL COMPRESSION TR [id number] 10:17 Screenburn 29CM Used LARGE 29 *[id number] SHEATH, FR6 RADIAL PRELUDE 09:45 Screenburn FR 6 [id number] Used EASE 11CM [id number] 09:45 Screenburn WIRE, EXCHANGE 260CM 3MMJ 260CM Used *[id number] 09:45 NAMIC MANIFOLD, 4 PORT * Used *[id number] 09:45 NYCOMED OMNIPAQUE, 350 MG, 150ML 150ML [id number] Used History: Current Medications Medication Dosage/Unit Route Frequency Last Date/Time Taken Beta Ottoniel Imdur History: Allergies Allergy Reaction No Known Allergies History: Risk Factors Family History of Hypertension Dyslipidemia Previous UT Previous Heart Failure Premature CAD Yes Yes No No No Prior Valve Prior PCI Prior CABG Surgery No No No Cerebrovascular Peripheral Artery Chronic Lung On Dialysis Diabetes Diabetes Therapy Disease Disease Disease No No No No Yes Oral History: Symptoms/Diagnosis Selection Items Chest pain History: Stress Tests Stress or Imaging Studies Performed No History: Other Disease Selection Items HTN History: Other Current Smoker Method Quit Packs a Day Years Used Pack Years No Cigarettes 10 Years Ago 2 10 20 Labs Hgb (g/dl) Hct (%) WBC (l/cumm) Platelets (thousands) 11.60-17.00 35.00-51.00 4.00-11.00 150.00-450.00 9.7 27.6 10.9 178 Glucose (mg/dl) BUN (mg/dl) Creatinine (mg/dl) BUN:Creatinine (1:x) 74.00-106.00 7.00-18.00 0.50-1.30 10.00-20.00 120 80 3.5 22.9 Na (meq/l) K (meq/l) 136.00-145.00 3.50-5.10 138 4 INR (PTT:PT) 0.90-1.10 1.3 Troponin I (ng/ml) CPK-MB (ng/ML) 0.02-0.05 0.50-3.60 2.34 Not Drawn Medication Medication Total Dose (Bolus/Oral) Medication Total Dosage/Unit 1% XYLOCAINE 2 mL FENTANYL 50 mcg NTG (IC) 200 mcg VERSED 1 mg Medications (Bolus/Oral) Medication Time Given Dosage/Unit Administered By Reason VERSED 09/13/2018 10:06:[address], Raman 1 mg VERSED given in lab by Raman Dorado RN in Right Antecubital via Peripheral IV. Ordered by Piotr Brewster. FENTANYL 09/13/2018 10:06:[address], Raman 50 mcg FENTANYL given in lab by Raman Dorado RN in Right Antecubital via Peripheral IV. Ordered by Piotr Lopez. 1% XYLOCAINE 09/13/2018 10:08:06 AM 2 mL Piotr Brewster 2 mL 1% XYLOCAINE given in lab by Piotr Brewster in Right Radial via Subcutaneous. NTG (IC) 09/13/2018 10:09:25 AM 200 mcg Piotr Brewster 200 mcg NTG (IC) given in lab by Piotr Brewster in Right Radial via Intra-arterial. Medication (Drip) Medication Time Given Dosage/Unit Concentration/Unit Diluent (ml) Solutio n IV Solutions 09/13/2018 9:36:35 AM 0 mL (IV) 500 NaCl .9 Patient arrived on IV Solutions in Right Antecubital via Peripheral IV. Pump/Drip Flow = 20 ml/hr usi ng NaCl .9. Initial Case Assessment Cardiovascular HR Rhythm NIBP Chest Pain 85 afib 121/72 0 Edema Present Skin color Skin None Normal Warm Dry Circulatory - Right Pulses Dorsalis Pedis Femoral Radial 2 2 2 Scale (0,1,2,3,4,d) Scale (0,1,2,3,4,d) Neurological State Oriented to time-place- Alert Moves all extremities person Respiration - General Respiration Rate SpO2 (%) (B/min) 15 95 Final Case Assessment Cardiovascular HR Rhythm NIBP Chest Pain 75 afib 111/64 0 Edema Present Skin color Skin None Normal Warm Dry Circulatory - Right Pulses Dorsalis Pedis Femoral Radial 2 2 2 Scale (0,1,2,3,4,d) Scale (0,1,2,3,4,d) Neurological State Oriented to time-place- Alert Moves all extremities person Respiration - General Respiration Rate SpO2 (%) (B/min) 15 95 Chronological Log Time Study Chronological Log 9:36:25 Patient arrived via Bed. 9:36:25 Patient Name, D.O.B, / Armband Verified By R.N. 9:36:26 Consent signed by the physician and the patient and verified by the [facility] staff. 9:36:27 Pre-op and post- op instructions given; patient acknowledges understanding of instructions. 9:36:28 Presedation assessment performed by [facility] RN. 9:36:29 Allens test performed on the right radial and ulnar artery. POSITIVE. 9:36:30 Immediate Presedation assesment performed by physician. 9:36:31 Patient has been NPO for More than 6Hrs. 9:36:32 Skin Breakdown- none per patient 9:36:33 Patient Warmer Placed on the Table. 9:36:33 Kyle Prominences Protected 9:36:34 A # 20 IV was noted in the Antecubital (right). Grade = 0 9:36:35 A # 20 IV was noted in the Forearm (right). Grade = 0 9:36:35 Patient arrived on IV Solutions in Right Antecubital via Peripheral IV. Pump/Drip Flow = 20 ml/hr using NaCl .9. 9:36:35 History and physical on the chart or being dictated. Vitals capture started with the following parameters, Patient=Adult, Interval=5 min, Initial Pr rjxhzd=886 mmHg, 9:45:24 Deflation Rate=5 mmHg, Cuff placed on Left Arm 9:46:03 HR=87 bpm, OKOF=805/68 mmhg, SpO2=96.0 %, Resp=15 B/min, Pain=0, Martha=10, Carlos=2 9:51:02 HR=82 bpm, YLUU=449/72 mmhg, SpO2=94.0 %, Resp=22 B/min, Pain=0, Martha=10, Carlos=2 Assessment: Initial Case, HR=85 BPM, Rhythm=afib, XGIX=369/72 mmhg, Chest Pain=0, Edema=None, Color=Normal, Skin = Warm, Dry 9:52:50 Right Pulses: Lang Ped=2, Femoral=2, Radial=2 Neurological: State=Alert, Ox3, SIDDIQUI Respiration: Resp=15 B/min, SpO2=95 % 9:53:23 Reference ECG taken 9:53:33 Right Radial and groin(s) prepped with 2% chlorhexidine, and draped after a 3 min. waiting t constantine. 9:56:01 HR=87 bpm, IBZH=055/67 mmhg, SpO2=94.0 %, Resp=14 B/min, Pain=0, Martha=10, Carlos=2 9:57:29 MD paged 9:58:21 MD responded 10:01:00 TF=058 bpm, LSZT=065/75 mmhg, SpO2=93.0 %, Resp=20 B/min, Pain=0, Martha=10, Carlos=2 10:01:49 Pressure channel 1 zeroed. 10:05:23 MD arrived. 10:05:29 Immediate Presedation assesment performed by physician. Time Out. Correct patient, correct procedure, correct physician, labs, allergies, and equipment verified with [facility] conservation laborer 10:05:30 team present. Fire risk assesment completed (see hard stop sheet for coding). Time Out Conc urred by MD and individual staff in procedure. 10:06:01 HR=85 bpm, ISLX=406/72 mmhg, SpO2=94 %, Resp=17 B/min, Pain=0, Martha=10, Carlos=2 10:06:28 1 mg VERSED given in lab by Raman Dorado RN in Right Antecubital via Peripheral IV. Ordere d by Piotr Brewster. 10:06:34 50 mcg FENTANYL given in lab by Raman Dorado RN in Right Antecubital via Peripheral IV. Or dered by Piotr Brewster. 10:08:05 Case Start 10:08:06 2 mL 1% XYLOCAINE given in lab by Piotr Brewster in Right Radial via Subcutaneous. 10:08:51 Access site was Right Radial Artery . A SHEATH, FR6 RADIAL PRELUDE EASE 11CM FR 6 was advanced into the Radial (right) using the Perc utaneous :: technique. 10:09:25 200 mcg NTG (IC) given in lab by Piotr Brewster in Right Radial via Intra-arterial. 10:09:42 In the Radial (right) the SHEATH, FR6 RADIAL PRELUDE EASE 11CM FR [address] by Piotr Brewster. A JR 5.0 INFINITI CATHETER FR 5 was advanced over a wire. OMNIPAQUE, 350 MG, 150ML 150ML was us ed for :09:50 injections. 10:11:02 HR=85 bpm, WTOP=455/62 mmhg, SpO2=90.0 %, Resp=18 B/min, Pain=0, Martha=10, Carlos=2 Recorded Pressure: Ao, HR=82, Condition=Condition 1 10:11:08 (Aorta) Ao 91/50/68 Recorded Pressure: LV, Ao, HR=82, Condition=Condition 1 10:11:16 (Left Ventricle) LV 88/8/10, (Aorta) Ao 91/50/68 10:11:41 The RCA was injected and visualized at various angles. OMNIPAQUE, 350 MG, 150ML 150ML use d. After removing the current catheter a JL 3.5 DXTERITY CATHETER FR 5 was advanced over a WIRE, EXCHANGE 260CM 10:12:46 3MMJ 260CM. 10:14:29 The LCA was injected and visualized at various angles. OMNIPAQUE, 350 MG, 150ML 150ML use d. 10:16:01 HR=78 bpm, PALB=228/64 mmhg, SpO2=90.0 %, Resp=19 B/min, Pain=0, Martha=10, Carlos=2 10:17:29 Catheter was removed 10:17:31 Case End (Physician broke scrub) Assessment: Final Case, HR=75 BPM, Rhythm=afib, JSZF=462/64 mmhg, Chest Pain=0, Edema=None, Co ced=Normal, Skin = Warm, Dry 10:18:22 Right Pulses: Lang Ped=2, Femoral=2, Radial=2 Neurological: State=Alert, Ox3, SIDDIQUI Respiration: Resp=15 B/min, SpO2=95 % 10:18:43 Catheter(s) removed without difficulty Radial Compression Device Used. 10 mLs of air placed in BAND, RADIAL COMPRESSION TR LARGE 29 2 9CM. Affected 10:18:47 hand 90 % O2 saturation. 10:18:57 Sterile dressing applied to site 10:18:58 No case complications noted. 10:18:59 Cine recording checked. 10:19:00 Bedside Report will be given. 10:19:07 A Left Heart Cath was performed. 10:21:05 HR=75 bpm, NBWW=625/63 mmhg, SpO2=90.0 %, Resp=19 B/min, Pain=0, Martha=10, Carlos=2 10:26:01 HR=80 bpm, YFHI=765/61 mmhg, SpO2=91.0 %, Resp=15 B/min, Pain=0, Martha=10, Carlos=2 10:29:28 Vitals capture stopped. 10:29:32 Patient moved to [facility] End Study - Contrast Media Used In Study Contrast Total Opened (mL) Total Used (mL) Total Wasted (mL) Omnipaque 350 15 15 0 End Study - Maximum Contrast Load Max Contrast Load (mL) 139.2 End Study - Radiation Exposure Fluoro Time Fluoro Dose (mGy) Cine Dose (uGym2) (minutes) 1.3 758 [id number] End Study - Patient Disposition Complications Transferred To Interventional Outcome No Telemetry Bed No attempt made
[2018-09-13] MEDS ORDERED: Iohexol 350 MG/ML 50 ML Vial (for Cath Lab) IVCONTRAST ONE (10:32)
--- NOTE | 2018-09-13 14:50 | P.PNIM ---
Subjective Interval history: Status post cardiac catheterization, was found to have severe three-vessel disease. Patient did not have any chest pain overnight. Shortness of breath a lot better, still coughing but better. Afebrile. Physical Exam Vital signs: Vital Signs 09/12/18 15:00 09/12/18 16:00 09/12/18 16:08 Temperature 98.5 F Pulse Rate 74 80 80 Respiratory Rate 18 18 Blood Pressure 124/70 Pulse Oximetry 93 L 09/12/18 17:00 09/12/18 18:00 09/12/18 19:00 Temperature Pulse Rate 82 83 89 Respiratory Rate Blood Pressure Pulse Oximetry 09/12/18 19:49 09/12/18 19:53 09/12/18 20:00 Temperature 98.0 F Pulse Rate 98 H 100 H Respiratory Rate 20 Blood Pressure 127/56 L Pulse Oximetry 92 L 92 L 09/12/18 21:00 09/12/18 21:30 09/12/18 22:00 Temperature Pulse Rate 92 H 98 H Respiratory Rate Blood Pressure Pulse Oximetry 93 L 09/12/18 23:00 09/12/18 23:58 09/13/18 00:00 Temperature 98.3 F Pulse Rate 86 81 88 Respiratory Rate 18 20 Blood Pressure 125/59 L Pulse Oximetry 92 L 09/13/18 01:00 09/13/18 02:00 09/13/18 03:00 Temperature Pulse Rate 86 86 90 Respiratory Rate Blood Pressure Pulse Oximetry 09/13/18 03:47 09/13/18 04:00 09/13/18 05:00 Temperature 98.9 F Pulse Rate 90 86 82 Respiratory Rate 20 Blood Pressure 117/62 Pulse Oximetry 93 L 09/13/18 06:00 09/13/18 07:00 09/13/18 07:29 Temperature 98.0 F Pulse Rate 97 H 91 H 93 H Respiratory Rate 18 Blood Pressure 124/68 Pulse Oximetry 95 09/13/18 07:30 09/13/18 08:00 09/13/18 09:00 Temperature Pulse Rate 82 90 Respiratory Rate Blood Pressure Pulse Oximetry 95 09/13/18 11:00 09/13/18 12:00 09/13/18 13:00 Temperature Pulse Rate 80 84 70 Respiratory Rate Blood Pressure Pulse Oximetry Intake & Output 09/12/18 09/13/18 09/13/18 18:59 06:59 18:59 Intake Total 760 / 760 541 / 541 151 / 151 Output Total 500 / 500 550 / 550 Balance 260 / 260 -9 / -9 151 / 151 Weight 97.4 kg Intake: IV 100 / 100 301 / 301 151 / 151 Heparin/NS PF Inj 1,000 ML @ 0 1 / 1 mls/hr .ROUTE .STK-MED ONE Rx#: [id number] Heparin/D5W 25,000 U/250 mL 25, 250 / 250 50 / 50 000 unit In 250 ml @ Per Protocol IV.CONT TITRATE PRN Rx #:[id number] Vitamin K Inj 10 MG In NS Inj 51 / 51 50 ML @ 102 mls/hr IV.SIG ONCE ONE Rx#:[id number] Rocephin Inj 1,000 MG In NS Inj 100 / 100 100 / 100 100 ML @ 200 mls/hr IV.SIG Q24H CORINE Rx#:[id number] Oral 660 / 660 240 / 240 Output: Urine 500 / 500 550 / 550 Other: # Voids 1 Date of Last Bowel Movement 09/12/18 09/12/18 09/13/18 Narrative: Not in distress, on room air Pupils equal round reactive, pink conjunctivae No JVD Regular rate and rhythm, no murmurs Decreased breath sounds in the right base, no crackles or rhonchi at this time. Abdomen soft, nontender No edema, no skull tenderness Alert awake and oriented x3, no cranial nerve deficits, no focal deficits. Results Labs CBC & Chem 7: 09/13/18 07:20 09/13/18 07:20 Imaging Imaging: Impressions Abdomen/Bladder Ultrasound 09/11/18 00:00 CONCLUSION: 1. Right renal cyst. 2. Kidneys otherwise appear unremarkable. Assessment and Plan (1) Non-ST elevation NV (NSTEMI): Code(s): I21.4 - Non-ST elevation (NSTEMI) myocardial infarction Status: Acute Plan This is a 78-year-old male with history of diabetes mellitus, chronic kidney disease stage IV, atrial fibrillation status post pacemaker placement, recently being worked up for multiple myeloma presenting with progressive shortness of breath and cough for 3 days after driving about 2 weeks ago from [place]. Shortness of breath and cough, likely secondary to pneumonia - doubt COPD, no wheezing. chest x-ray showed bilateral infiltrates, now with WBC of 11.8 leukocytosis with neutrophilic predominance and monocytosis. Patient also being worked up for multiple myeloma hence may be immunocompromised. Patient may have relatively low white blood cell count because of possible multiple myeloma. We will elect to treat for possible pneumonia and possible CHF for now. Renal function precludes using a CTA of the chest to rule out PE, VQ scan showed low probability for PE. Negative DVT on bilateral leg Doppler ultrasound. Stopped steroids, doubt COPD based on clinical presentation. Ceftriaxone, switch to Ceftin to finish on September 18., finish oral azithromycin. Continue Antitussives, duo nebs as needed, Mucomyst nebs. R/o diastolic CHF - TTE showed basal hyperthrophy with sigmoid septum, EF 45-50% , moderate to severe MR, cardiology following Non-ST elevated myocardial infarction with chest pain-could be demand mediated vs UA, EKG showed first-degree AV block, RBBB, troponin maxed to 4.5 , now trending down. On heparin and NTG drip, aspirin daily. Morphine as needed for pain. LDL is 42. Status post cardiac catheterization, showed severe three- vessel coronary artery disease, cardiothoracic surgery consulted for CABG. Patient and family agreeable. Atrial fibrillation-status post pacemaker placement, currently in sinus rhythm, hold coumadin for now since patient is on heparin drip anticipating surgery, follow INR daily. Continue Coreg, Multaq Diabetes mellitus-continue Levemir at home dose with sliding scale insulin. Hold Januvia. Hemoglobin A1c 6.7. History of gout-hold allopurinol due to renal function. Hypertension-continue Norvasc, Coreg Chronic kidney disease stage IV, non-oliguric -unsure baseline creatinine, monitor closely. Continue indapamide. Check I's and O's. Nephrology following. Will likely need dialysis, PermCath placement per nephrology. DVT prophylaxis: Heparin Medically ready.
[2018-09-13] MEDS ORDERED: Dextrose 50% in Water 50 ML Vial IV.PUSH PRN (15:02)
[2018-09-13] MEDS ORDERED: Insulin Regular (For Infusion) 100 UNIT in Sodium Chlor 0.9% Inj 99 ML IV.CONT PRN (15:02)
[2018-09-13] MEDS ORDERED: Chlorhexidine 4% Topical 120 APPLIC/120 ML Bottle TOPICAL SCH (15:15)
[2018-09-13] MEDS ORDERED: Sodium Chlor 0.9% Inj 77.5 ML, Papaverine Inj 60 MG, Nitroglycerin Inj 100 MCG, dilTIAZ... IRRIGATION SCH ×3 (15:15)
[2018-09-13] MEDS ORDERED: Sodium Chloride 0.9% Irr Bot 500 ML, ceFAZolin Inj 500 MG IRRIGATION SCH ×2 (15:15)
[2018-09-13] MEDS ORDERED: ceFAZolin 2 GM Premix Inj 2 GM/50 ML PIGGYBACK IV.SIG SCH (16:00)
--- NOTE | 2018-09-13 16:03 | P.PNCV ---
- Note Subjective/Hospital Course: pt seen and evaluated, full consult completed sts data discussed with pt RISK SCORES Procedure: MV Repair + CAB CALCULATE Risk of Mortality: 14.695% Renal Failure: 65.912% Permanent Stroke: 4.987% Prolonged Ventilation: 43.353% DSW Infection: 1.023% Reoperation: 8.501% Morbidity or Mortality: 75.295% Short Length of Stay: 2.165% Long Length of Stay: 41.960% Objective: Vital Signs - 24 hr 09/12/18 16:08 09/12/18 17:00 09/12/18 18:00 Temperature Pulse Rate 80 82 83 Respiratory Rate 18 Blood Pressure Pulse Oximetry 09/12/18 19:00 09/12/18 19:49 09/12/18 19:53 Temperature 98.0 F Pulse Rate 89 98 H Respiratory Rate 20 Blood Pressure 127/56 L Pulse Oximetry 92 L 92 L 09/12/18 20:00 09/12/18 21:00 09/12/18 21:30 Temperature Pulse Rate 100 H 92 H Respiratory Rate Blood Pressure Pulse Oximetry 93 L 09/12/18 22:00 09/12/18 23:00 09/12/18 23:58 Temperature Pulse Rate 98 H 86 81 Respiratory Rate 18 Blood Pressure Pulse Oximetry 09/13/18 00:00 09/13/18 01:00 09/13/18 02:00 Temperature 98.3 F Pulse Rate 88 86 86 Respiratory Rate 20 Blood Pressure 125/59 L Pulse Oximetry 92 L 09/13/18 03:00 09/13/18 03:47 09/13/18 04:00 Temperature 98.9 F Pulse Rate 90 90 86 Respiratory Rate 20 Blood Pressure 117/62 Pulse Oximetry 93 L 09/13/18 05:00 09/13/18 06:00 09/13/18 07:00 Temperature Pulse Rate 82 97 H 91 H Respiratory Rate Blood Pressure Pulse Oximetry 09/13/18 07:29 09/13/18 07:30 09/13/18 08:00 Temperature 98.0 F Pulse Rate 93 H 82 Respiratory Rate 18 Blood Pressure 124/68 Pulse Oximetry 95 95 09/13/18 09:00 09/13/18 11:00 09/13/18 12:00 Temperature Pulse Rate 90 80 84 Respiratory Rate Blood Pressure Pulse Oximetry 09/13/18 13:00 09/13/18 14:00 09/13/18 15:00 Temperature Pulse Rate 70 82 75 Respiratory Rate Blood Pressure Pulse Oximetry Labs: Laboratory Results - last 12 hr 09/13/18 09/13/18 09/13/18 07:20 07:20 07:20 WBC 10.9 RBC 2.75 L Hgb 9.7 L Hct 27.6 L MCV 100.2 H MCH 35.4 H MCHC 35.3 RDW 14.1 Plt Count 178 MPV 8.3 PT 13.2 H INR 1.3 APTT 48.1 H Sodium 138 Potassium 4.0 Chloride 104 Carbon Dioxide 24.5 Anion Gap 10 BUN 80 H Creatinine 3.57 H Estimated GFR 17 L POC Glucose Random Glucose 120 H D Calcium 8.2 L MTS Gel Crossmatch 09/13/18 09/13/18 09/13/18 08:08 11:35 15:54 WBC RBC Hgb Hct MCV MCH MCHC RDW Plt Count MPV PT INR APTT Sodium Potassium Chloride Carbon Dioxide Anion Gap BUN Creatinine Estimated GFR POC Glucose 135 H 163 H Random Glucose Calcium MTS Gel Crossmatch See Detail Result Diagrams: 09/13/18 07:20 09/13/18 07:20
--- NOTE | 2018-09-13 16:54 | US ---
EXAM DATE: 09/13/2018 4:47 PM EST AGE/SEX: 78 years / Male INDICATIONS: Pre op cardiac surgery. CLINICAL DATA: This is the patient's initial encounter. Patient reports that signs and symptoms have been present for 1 day and indicates a pain score of 0/10. MEDICAL/SURGICAL HISTORY: . A-fib. Achilles tendon injury. Diabetes. Radiation therapy. Cholecy stectomy. GERD. Glaucoma. Gout. Hypertension. Pacemaker. Prostate cancer. Stage 4 chronic kidney dise ase. . Cataract removal with insertion of prosthetic lens. Hernia repair. Hemorrhoidectomy. Appendec hugo. COMPARISON: No prior exams available for comparison. VELOCITY PARAMETERS: ICA/CCA Ratio: Right 1.5 , Left 1.4 ICA: Right 126 cm/sec, Left 105 cm/sec CCA: Right 83 cm/sec, Left 76 cm/sec ECA: Right 136 cm/sec, Left 134 cm/sec Vertebral: Right 52 cm/sec antegrade, Left 44 cm/sec antegrade FINDINGS: Right Carotid: Mild arteriosclerotic plaque is visualized.There is slight elevated velocity right in ternal carotid artery without significant stenosis. Left Carotid: Mild arteriosclerotic plaque is visualized. The waveforms are within normal limits. Other: None. CONCLUSION: 1. Right Internal Carotid Artery: Findings indicate <50% stenosis. 2. Left Internal Carotid Artery: Findings indicate <50% stenosis. Electronically signed by: Victoriano Marin MD Board Certified Radiologist 09/13/2018 4:53 PM EST
--- NOTE | 2018-09-13 16:55 | US ---
EXAM DATE: 09/13/2018 4:50 PM EST AGE/SEX: 78 years / Male INDICATIONS: Pre op cardiac surgery. CLINICAL DATA: This is the patient's initial encounter. Patient reports that signs and symptoms have been present for 1 day and indicates a pain score of 0/10. MEDICAL/SURGICAL HISTORY: . A-fib. Achilles tendon injury. Diabetes. Radiation therapy. Cholecy stectomy. GERD. Glaucoma. Gout. Hypertension. Pacemaker. Prostate cancer. Stage 4 chronic kidney dise ase. . Cataract removal with insertion of prosthetic lens. Hernia repair. Hemorrhoidectomy. Appendec hugo. COMPARISON: No prior exams available for comparison. MEASUREMENTS: RIGHT THIGH: Proximal:__5 mm Mid:__ 3 mm Distal:__3 mm LEFT THIGH: Proximal:__4 mm Mid:__2 mm Distal:__3 mm RIGHT CALF: Proximal:__1 mm Mid:__1 mm Distal:__2 mm LEFT CALF: Proximal:__Non-visualized Mid:__Non-visualized Distal:__2 mm FINDINGS: The venous system of the lower extremities are patent by color Doppler imaging. Measurements of the leg veins (in mm) are listed above. CONCLUSION: 1. Patent lower extremity veins with venous mapping measurements, as above. Electronically signed by: Jaren Gross MD Board Certified Radiologist 09/13/2018 4:53 PM EST
[2018-09-13] MEDS: Insulin Detemir Inj 1,000 UNIT/10 ML Vial SQ SCH (17:28)
[2018-09-13] MEDS: Latanoprost 0.005% Opth Drops 2.5 ML Bottle EACH EYE SCH (18:06)
--- NOTE | 2018-09-13 20:43 | P.PNNP ---
Subjective Interval history: Patient seen in the afternoon, seen after the Cardiac Cath., no SOB, no chest pain. Physical Exam Vital signs: Vital Signs 09/12/18 21:00 09/12/18 21:30 09/12/18 22:00 Temperature Pulse Rate 92 H 98 H Respiratory Rate Blood Pressure Pulse Oximetry 93 L 09/12/18 23:00 09/12/18 23:58 09/13/18 00:00 Temperature 98.3 F Pulse Rate 86 81 88 Respiratory Rate 18 20 Blood Pressure 125/59 L Pulse Oximetry 92 L 09/13/18 01:00 09/13/18 02:00 09/13/18 03:00 Temperature Pulse Rate 86 86 90 Respiratory Rate Blood Pressure Pulse Oximetry 09/13/18 03:47 09/13/18 04:00 09/13/18 05:00 Temperature 98.9 F Pulse Rate 90 86 82 Respiratory Rate 20 Blood Pressure 117/62 Pulse Oximetry 93 L 09/13/18 06:00 09/13/18 07:00 09/13/18 07:29 Temperature 98.0 F Pulse Rate 97 H 91 H 93 H Respiratory Rate 18 Blood Pressure 124/68 Pulse Oximetry 95 09/13/18 07:30 09/13/18 08:00 09/13/18 09:00 Temperature Pulse Rate 82 90 Respiratory Rate Blood Pressure Pulse Oximetry 95 09/13/18 10:45 09/13/18 11:00 09/13/18 11:15 Temperature Pulse Rate 80 80 80 Respiratory Rate Blood Pressure 113/65 123/67 121/67 Pulse Oximetry 09/13/18 11:30 09/13/18 12:00 09/13/18 12:30 Temperature Pulse Rate 82 86 85 Respiratory Rate Blood Pressure 121/66 112/63 108/52 L Pulse Oximetry 09/13/18 12:37 09/13/18 13:00 09/13/18 13:30 Temperature Pulse Rate 70 70 72 Respiratory Rate Blood Pressure 123/69 127/65 Pulse Oximetry 09/13/18 14:00 09/13/18 14:30 09/13/18 15:00 Temperature Pulse Rate 82 70 75 Respiratory Rate Blood Pressure 121/66 Pulse Oximetry 09/13/18 15:30 09/13/18 16:00 09/13/18 16:30 Temperature 98.7 F Pulse Rate 79 74 75 Respiratory Rate Blood Pressure 125/78 135/75 Pulse Oximetry 95 09/13/18 17:00 09/13/18 17:30 09/13/18 18:00 Temperature Pulse Rate 74 80 92 H Respiratory Rate Blood Pressure 124/60 Pulse Oximetry 09/13/18 20:00 Temperature 98.6 F Pulse Rate 77 Respiratory Rate 22 Blood Pressure 125/65 Pulse Oximetry 95 Intake & Output 09/13/18 09/13/18 09/14/18 06:59 18:59 06:59 Intake Total 541 / 541 631 / 631 Output Total 550 / 550 1150 / 1150 Balance -9 / -9 -519 / -519 Weight 97.4 kg Intake: IV 301 / 301 151 / 151 Heparin/NS PF Inj 1,000 ML @ 0 1 / 1 mls/hr .ROUTE .STK-MED ONE Rx#: [id number] Heparin/D5W 25,000 U/250 mL 25, 250 / 250 50 / 50 000 unit In 250 ml @ Per Protocol IV.CONT TITRATE PRN Rx #:[id number] Vitamin K Inj 10 MG In NS Inj 51 / 51 50 ML @ 102 mls/hr IV.SIG ONCE ONE Rx#:[id number] Rocephin Inj 1,000 MG In NS Inj 100 / 100 100 ML @ 200 mls/hr IV.SIG Q24H CORINE Rx#:[id number] Oral 240 / 240 480 / 480 Output: Urine 550 / 550 1150 / 1150 Other: Date of Last Bowel Movement 09/12/18 09/13/18 09/13/18 Narrative: GENERAL: Well-developed well-nourished. In no acute distress. NECK: No carotid bruits. No JVD. CARDIOVASCULAR: Regular rate and rhythm. No murmur appreciated. RESPIRATORY: No accessory muscle use. Clear to auscultation. Breath sounds equal bilaterally. MUSCULOSKELETAL: No clubbing or cyanosis. No edema. NEUROLOGICAL: Awake and alert. Normal speech. Assessment and Plan - Assessment (1) Stage 4 chronic kidney disease Code(s): N18.4 - Chronic kidney disease, stage 4 (severe) Status: Acute (2) Non-ST elevation [place] (NSTEMI) Code(s): I21.4 - Non-ST elevation (NSTEMI) myocardial infarction Status: Acute (3) Dyspnea Code(s): R06.00 - Dyspnea, unspecified Status: Acute Qualifiers: Dyspnea type: unspecified Qualified Code(s): R06.00 - Dyspnea, unspecified (4) Diabetes mellitus Code(s): E11.9 - Type 2 diabetes mellitus without complications Status: Acute - Plan Patient with stage 4 chronic kidney disease. He has been following with [facility]. As per patient he was told that he has GFR of 16 ml/min. Now he is admitted with chest pain and diagnosed with NSTEMI. Cardiology following. Post Cardiac Cath. results noted. Has 3 vessel disease disease and severe MR. Seen by Cardiac Surgery, for Cardiac Surgery. Creatinine is stable and was given small amount of contrast. Will follow the renal function. HD if needed.
[2018-09-14] MEDS: RESP: Acetylcysteine 10% 4 ML Neb NEB SCH ×3 (00:08→16:09)
[2018-09-14 05:45] LABS: INR 1.1 Ratio; Prothrombin Time 11.4 sec (9.8-11.6)
[2018-09-14] MEDS: Isosorbide Mononitrate 30 MG ER 24HR Tablet (Imdur) PO SCH (06:23)
--- NOTE | 2018-09-14 07:35 | MB ---
cc: Umm Ravi MD DATE: 09/13/2018 HISTORY OF PRESENT ILLNESS: A 78-year-old male, visiting from the [facility] here with his who presented to the emergency room with shortness of breath, cough, occasional sputum production greenish color, some congestion. No orthopnea, no lower extremity edema. No nausea or vomiting. No chest pain. He went to the Urgent Care and was prescribed some doxycycline, prednisone and antitussives, but did not feel any better. Started developing right-sided chest discomfort that was sharp, nonradiating, not associated with nausea. He was in a car. He drove for 3 days from the [place] area 08/26/2018 and arrived here on 08/29/2018. They did a complete workup on him and are treating him for bilateral infiltrates. He was also found to have acute kidney failure. He has a history of chronic kidney disease. 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 He also is on Coumadin for intermittent atrial fibrillation. They did a venous Doppler. There was no evidence of DVT. V/Q scan was low probability. He was further worked up. He had a mildly elevated troponin at 2.34. He was ruled in for a non-STEMI. He underwent cardiac catheterization showing 90% stenosis in the LAD, 95% proximal left circumflex, proximal left circumflex was 50, the RCA was 30%. The patient also was found to have moderate to severe mitral regurgitation. Cardiac catheterization revealed an ejection fraction of 45-50%, moderate to severe mitral valve regurgitation, trace tricuspid regurgitation. We were consulted to evaluate for coronary artery bypass grafting and mitral valve repair versus replacement. PAST MEDICAL HISTORY: Includes atrial fibrillation, diabetes mellitus, gastroesophageal reflux disease, glaucoma, gout, hypertension, prostate cancer, stage IV kidney disease, history of multiple myeloma where he was being worked up to have a bone biopsy. He was apparently off the Coumadin for about 2 weeks. He restarted it before driving south. PAST SURGICAL HISTORY: Include cataract surgery with insertion of prosthetic lens, hernia repair, hemorrhoidectomy, appendectomy. ALLERGIES: THE PATIENT HAS NO KNOWN ALLERGIES. HOME MEDICATIONS: 1. Allopurinol. 2. Doxycycline. 3. Indapamide. 4. Prednisone. 5. Januvia. 6. Coumadin. 7. Amlodipine. 8. Coreg. 9. Multaq. 10. Levemir. 11. Omeprazole. 12. Flomax. FAMILY HISTORY: Noncontributory. 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 Some occasional ETOH. History of prior tobacco abuse. REVIEW OF SYSTEMS: No fever, no headaches. No dizziness. He has just a cough and some congestion. PHYSICAL EXAMINATION: VITAL SIGNS: Blood pressure 124/68, heart rate of 84, afebrile. GENERAL: The patient is awake, alert, in no acute distress. HEENT: Head is normocephalic, atraumatic. Pupils equal and reactive. Oral mucosa pink, moist. NECK: Supple. No JVD. CARDIOVASCULAR: Heart sounds S1, S2. Grade 2/6 systolic murmur heard best at the left sternal border. LUNGS: He has got a faint expiratory wheeze with a few scattered rhonchi. ABDOMEN: Soft, nontender. No masses or organomegaly. EXTREMITIES: No cyanosis, clubbing, or edema. LABORATORY DATA: Shows hemoglobin 9.7, hematocrit of 27. BUN of 80, creatinine 3.57. Troponin 2.34. INR now 1.3. RADIOLOGICAL EXAMS: As above. IMPRESSION: This is again a 78-year-old male with multivessel coronary artery disease ruled in for a [id number] myocardial infarction. Also, severe mitral valve regurgitation. The cardiac films have been reviewed by Dr. Umm Ravi. PLAN: Plan is for coronary artery bypass grafting x 3 with mitral valve repair versus replacement. Scheduling at this time will be on 09/16/2018. In the meantime, the patient does have acute on chronic kidney disease, stage IV, which is being followed by Nephrology. The initial plan was for placement of a Permcath and possible hemodialysis, but at this time they are going to be watching and monitoring the patient closely. He is currently on Mucomyst for his precatheterization. We will continue to follow. The patient is agreeable to proceed. Dictated by Kelsie Saunders APRN I interviewed and examined this patient on 09/13/18 with the KEY BED INSTALLER and discussed MVR/CABG with him. His MR is moderate and I camila make a final decision in the OR regarding intervening on the MV. He agrees to proceed and is high-risk secondary to his renal function being very poor and his other comorbidities. Umm MD CURTIS Andrew/marisabel , 03:21 PM , 03:35 PM MARY
--- NOTE | 2018-09-14 07:43 | P.PNCA ---
Subjective Interval history: No chest pain or shortness of breath. No issues with right radial access site. Has been seen by CT surgery. All questions answered. Medications and Allergies Active Medications: Active Medications Acetaminophen (Tylenol) 650 mg PO Q4H PRN PRN Reason: Temp > 100.4 Acetylcysteine (Mucomyst 10% Neb) 2 ml NEB Q8HR NEB [facility] Last Admin: 09/14/18 00:08 Dose: 2 ml Al Hydroxide/Mg Hydroxide (Milk Of Avelina Liisabella) 30 ml PO Q12H PRN PRN Reason: Mild Constipation Albuterol (Duoneb Neb (Prn)) 1 ampul NEB Q4HR NEB PRN PRN Reason: sob Last Admin: 09/14/18 00:06 Dose: 1 ampul Amlodipine Besylate (Norvasc) 5 mg PO DAILY [facility] Last Admin: 09/13/18 08:31 Dose: 5 mg Aspirin (Aspirin Chew) 81 mg PO DAILY [facility] Atorvastatin Calcium (Lipitor) 80 mg PO HS [facility] Last Admin: 09/13/18 21:08 Dose: 80 mg Azithromycin (Zithromax) 500 mg PO DAILY [facility] Benzonatate (Tessalon Perles) 100 mg PO TID PRN PRN Reason: COUGH Last Admin: 09/12/18 08:31 Dose: 100 mg Bisacodyl (Dulcolax Supp) 10 mg RECTAL DAILY PRN PRN Reason: SEVERE CONSITIPATION Carvedilol (Coreg) 25 mg PO BID [facility] Last Admin: 09/13/18 21:08 Dose: 25 mg Cefuroxime Axetil (Ceftin) 500 mg PO Q12HR [facility] Stop: 09/15/18 19:00 Last Admin: 09/13/18 21:08 Dose: 500 mg Chlorhexidine Gluconate (Hibiclens 4% Topical) 1 applicatio 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 [facility] Stop: 09/19/18 15:02 Sodium Chloride 77.5 ml/Papaverine HCl 60 mg/Nitroglycerin 100 mcg/Diltiazem HCl 100 mg 0 ml IRRIGATION [employer] [facility] Stop: 09/19/18 15:02 Sodium Chloride 500 ml/ (Cefazolin Sodium 500 mg) 0 ml IRRIGATION [employer] CLERK [facility] Stop: 09/19/18 15:04 Dextrose (D50w Vial) 50 ml IV.PUSH UNSCH PRN PRN Reason: PER HYPOGLYCEMIA PROTOCOL Dextrose (D50w Vial) 50 ml IV.PUSH UNSCH PRN PRN Reason: PER HYPOGLYCEMIA PROTOCOL Docusate Sodium (Colace) 100 mg PO DAILY [facility] Last Admin: 09/13/18 08:31 Dose: 100 mg Dronedarone (Multaq) 400 mg PO BID [facility] Last Admin: 09/13/18 21:09 Dose: 400 mg Furosemide (Lasix Inj) 40 mg IV.PUSH DAILY [facility] Last Admin: 09/13/18 12:35 Dose: 40 mg Glucagon (Glucagon Inj) 1 mg OTHER PRN PRN PRN Reason: for Hypoglycemia Protocol Guaifenesin/Codeine Phosphate (Robitussin Ac Liq) 10 ml PO Q6H PRN PRN Reason: IF BENZONATATE IS INEFFECTIV Last Admin: 09/12/18 11:13 Dose: 10 ml Nitroglycerin/Dextrose (Nitroglycerin Drip Premix) 50 mg in 250 mls @ 0 mls/hr IV.CONT TITRATE PRN; Protocol PRN Reason: Per Protocol Cefazolin Sodium/Dextrose (Ancef 2 Gm Premix Inj) 2 gm in 50 mls @ 100 mls/hr IV.SIG [employer] CL[employer] [facility] Stop: 09/19/18 15:04 Insulin Human Regular 100 unit (/ Sodium Chloride) 100 mls @ 3 mls/hr IV.CONT TITRATE PRN; Protocol PRN Reason: See Protocol Insulin Aspart (Novolog Insulin Correctional Sugar Inj) 0 unit SQ ACHS [facility]; Protocol Last Admin: 09/13/18 21:09 Dose: 1 unit Insulin Detemir (Levemir Inj) 32 unit SQ QPM [facility] Last Admin: 09/13/18 17:28 Dose: 32 unit Isosorbide Mononitrate (Imdur) 30 mg PO DAILY@0700 [facility] Last Admin: 09/14/18 06:23 Dose: 30 mg Lactulose (Lactulose Liq) 30 ml PO DAILY PRN PRN Reason: SEVERE CONSITIPATION Latanoprost (Xalatan 0.005% Opth Drops) 1 drop EACH EYE QPM [facility] Last Admin: 09/13/18 18:06 Dose: 1 drop Metoprolol Tartrate (Lopressor) 12.5 mg PO [employer] [facility] Stop: 09/19/18 15:04 Morphine Sulfate (Morphine Inj) 4 mg IV.PUSH Q4H PRN PRN Reason: BREAKTHROUGH PAIN Last Admin: 09/12/18 03:58 Dose: 4 mg Ondansetron HCl (Zofran Inj) 4 mg IV.PUSH Q6H PRN PRN Reason: NAUSEA OR VOMITING Pantoprazole Sodium (Protonix) 20 mg PO BID [facility] Last Admin: 09/13/18 21:09 Dose: 20 mg Sennosides (Senokot) 17.2 mg PO Q12H PRN PRN Reason: Moderate Constipation Sodium Chloride (Ns Flush) 2 ml IV.FLUSH BID [facility] Last Admin: 09/13/18 21:09 Dose: 2 ml Sodium Chloride (Ns Flush) 2 ml IV.FLUSH PRN PRN PRN Reason: FLUSH AFTER USING IV ACCESS Tamsulosin HCl (Flomax) 0.4 mg PO DAILY [facility] Last Admin: 09/13/18 08:31 Dose: 0.4 mg Allergies Allergy/AdvReac Type Severity Reaction Status Date / Time No Known Allergies Allergy Verified 09/10/18 04:33 Home Medications Medication Instructions Recorded Confirmed Type allopurinol 100 mg PO BID 09/10/18 09/10/18 History amlodipine 5 mg PO DAILY 09/10/18 09/10/18 History benzonatate 100 mg PO TID PRN 09/10/18 09/10/18 History carvedilol 25 mg PO BID 09/10/18 09/10/18 History codeine-guaifenesin [Robafen AC] 10 ml PO Q4-6H PRN 09/10/18 09/10/18 History docusate sodium 100 mg PO DAILY 09/10/18 09/10/18 History doxycycline hyclate 100 mg PO DAILY 09/10/18 09/10/18 History dronedarone [Multaq] 400 mg PO BID 09/10/18 09/10/18 History indapamide 1.25 mg PO QAM 09/10/18 09/10/18 History insulin aspart U-100 [Novolog 1 sliding scale dose SUBCUT UD 09/10/18 09/10/18 History U-100 Insulin aspart] insulin detemir U-100 [Levemir 32 unit SUBCUT QPM 09/10/18 09/10/18 History U-100 Insulin] latanoprost 1 drp OPHTHALMIC (EYE) QPM 09/10/18 09/10/18 History omeprazole 20 mg PO BID 09/10/18 09/10/18 History prednisone 20 mg PO BID 09/10/18 09/10/18 History sitagliptin [Januvia] 50 mg PO DAILY 09/10/18 09/10/18 History tamsulosin 0.4 mg PO DAILY 09/10/18 09/10/18 History warfarin [Jantoven] 2 mg PO DAILY 09/10/18 09/10/18 History Physical Exam Vital signs: Vital Signs 09/13/18 08:00 09/13/18 09:00 09/13/18 10:45 Temperature Pulse Rate 82 90 80 Respiratory Rate Blood Pressure 113/65 Pulse Oximetry 09/13/18 11:00 09/13/18 11:15 09/13/18 11:30 Temperature Pulse Rate 80 80 82 Respiratory Rate Blood Pressure 123/67 121/67 121/66 Pulse Oximetry 09/13/18 12:00 09/13/18 12:30 09/13/18 12:37 Temperature Pulse Rate 86 85 70 Respiratory Rate Blood Pressure 112/63 108/52 L 123/69 Pulse Oximetry 09/13/18 13:00 09/13/18 13:30 09/13/18 14:00 Temperature Pulse Rate 70 72 82 Respiratory Rate Blood Pressure 127/65 Pulse Oximetry 09/13/18 14:30 09/13/18 15:00 09/13/18 15:30 Temperature Pulse Rate 70 75 79 Respiratory Rate Blood Pressure 121/66 125/78 Pulse Oximetry 09/13/18 16:00 09/13/18 16:30 09/13/18 17:00 Temperature 98.7 F Pulse Rate 74 75 74 Respiratory Rate Blood Pressure 135/75 Pulse Oximetry 95 09/13/18 17:30 09/13/18 18:00 09/13/18 19:00 Temperature Pulse Rate 80 92 H 85 Respiratory Rate Blood Pressure 124/60 Pulse Oximetry 09/13/18 20:00 09/13/18 21:00 09/13/18 22:00 Temperature 98.6 F Pulse Rate 82 90 71 Respiratory Rate 22 Blood Pressure 125/65 Pulse Oximetry 95 09/13/18 23:00 09/14/18 00:00 09/14/18 00:10 Temperature 98.4 F Pulse Rate 78 69 74 Respiratory Rate 20 18 Blood Pressure 116/50 L Pulse Oximetry 95 09/14/18 00:12 09/14/18 01:00 09/14/18 02:00 Temperature Pulse Rate 78 74 Respiratory Rate Blood Pressure Pulse Oximetry 94 L 09/14/18 03:00 09/14/18 04:00 09/14/18 05:00 Temperature 97.8 F Pulse Rate 76 80 78 Respiratory Rate 16 Blood Pressure 112/60 Pulse Oximetry 95 09/14/18 06:00 Temperature Pulse Rate 84 Respiratory Rate Blood Pressure Pulse Oximetry Intake & Output 09/13/18 09/14/18 09/14/18 18:59 06:59 18:59 Intake Total 631 / 631 720 / 720 Output Total 1150 / 1150 900 / 900 Balance -519 / -519 -180 / -180 Weight 214 lb 15.211 oz Intake: IV 151 / 151 Heparin/NS PF Inj 1,000 ML @ 0 1 / 1 mls/hr .ROUTE .[facility] Rx#: [id number] Heparin/D5W 25,000 U/250 mL 25, 50 / 50 000 unit In 250 ml @ Per Protocol IV.CONT TITRATE PRN Rx #:[id number] Rocephin Inj 1,000 MG In NS Inj 100 / 100 100 ML @ 200 mls/hr IV.SIG Q24H [facility] Rx#:[id number] Oral 480 / 480 720 / 720 Output: Urine 1150 / 1150 900 / 900 Other: Date of Last Bowel Movement 09/13/18 09/13/18 Narrative: GENERAL: Well-developed well-nourished. In no acute distress. NECK: No carotid bruits. No JVD. CARDIOVASCULAR: Regular rate and rhythm. No murmur appreciated. RESPIRATORY: No accessory muscle use. Clear to auscultation. Breath sounds equal bilaterally. MUSCULOSKELETAL: No clubbing or cyanosis. No edema. Right radial and ulnar pulses intact. NEUROLOGICAL: Awake and alert. Normal speech. Results 09/13/18 07:20 09/13/18 07:20 Coagulation 09/12/18 09/12/18 09/13/18 Range/Units 08:03 08:03 07:20 PT 22.0 H 13.2 H (9.8-11.6) sec APTT 55.7 H 48.1 H (23.4-31.7) sec 09/14/18 Range/Units 04:46 PT 11.4 (9.8-11.6) sec APTT (23.4-31.7) sec Lipids 09/12/18 Range/Units 08:03 Triglycerides 165 H (42-150) mg/dL Cholesterol 100 L (120-200) mg/dL HDL Cholesterol 25.0 L (40.0-60.0) mg/dL Cholesterol/HDL Ratio 4.00 Ratio CBC 09/12/18 09/13/18 Range/Units 08:03 07:20 WBC 12.5 H 10.9 (4.0-11.0) th/mm3 RBC 2.81 L 2.75 L (4.50-5.90) mil/mm3 Hgb 9.7 L 9.7 L (13.0-17.0) gm/dL Hct 28.1 L 27.6 L (39.0-51.0) % Plt Count 166 178 (150-450) th/mm3 Comprehensive Metabolic Panel 09/12/18 09/13/18 Range/Units 21:23 07:20 Sodium 134 L 138 (136-145) meq/L Potassium 4.3 4.0 (3.5-5.1) meq/L Chloride 101 104 (98-107) meq/L Carbon Dioxide 22.5 24.5 (21.0-32.0) meq/L BUN 78 H 80 H (7-18) mg/dL Creatinine 3.74 H 3.57 H (0.60-1.30) mg/dL Calcium 7.8 L 8.2 L (8.5-10.1) mg/dL Intake and Output 09/13/18 09/14/18 09/14/18 22:59 06:59 14:59 Intake Total 480 / 480 720 / 720 Output Total 1150 / 1150 900 / 900 Balance -670 / -670 -180 / -180 Intake: Oral 480 / 480 720 / 720 Output: Urine 1150 / 1150 900 / 900 Other: Date of Last Bowel Movement 09/13/18 09/13/18 Weight 214 lb 15.211 oz - Imaging and Cardiology Imaging: Impressions Abdomen/Bladder Ultrasound 09/11/18 00:00 CONCLUSION: 1. Right renal cyst. 2. Kidneys otherwise appear unremarkable. Carotid Doppler Study 09/13/18 15:02 CONCLUSION: 1. Right Internal Carotid Artery: Findings indicate <50% stenosis. 2. Left Internal Carotid Artery: Findings indicate <50% stenosis. Lower Extremity Ultrasound 09/13/18 15:02 CONCLUSION: 1. Patent lower extremity veins with venous mapping measurements, as above. Assessment and Plan - Assessment (1) Non-ST elevation [place] (NSTEMI) Code(s): I21.4 - Non-ST elevation (NSTEMI) myocardial infarction Status: Acute - Plan 78 yo male with CKD stage IV, pacemaker, paroxysmal atrial fibrillation and DMII presented with right-sided chest pain, progressive SOB and cough x several days found to have elevated troponin level. He is in [place] visiting from [place] and developed cough 3 days ago, he went to urgent care 2 days ago and diagnosed with bronchitis. Night of admission, he developed right-sided anterior chest discomfort described as sharp and non-radiating that felt worse with laying supine; non-exertional. His cough became semi-productive which prompted him to come to the ED. Initial troponin level elevated at 2.08, second further elevated to 4.5. EKG shows first degree AV block but no concerning ST segment or T wave changes. chest films show bilateral infiltrate. He is currently resting comfortably with head of bed elevated. He denies prior coronary artery disease; no palpitations or edema. NSTEMI: Troponins 2.08 --> 4.5--> 2.34. Echo 09/10/18 LVEF 45-50%, moderate to severe MR. PASP 34. Continue heparin gtt and carvedilol. Continue Imdur 30 mg daily. ALEXEY-I/ARB unable to be used due to CKD. [facility] 09/13/18 with severe [place] three-vessel CAD. CT surgery consulted for CABG. Mitral regurgitation: Moderate-severe. Plan for MVR with CABG. Afib: currently in NSR. Warfarin held and INR subtherapeutic. Continue heparin GTT for now with pending procedures. CKD stage IV- Cr 3.5 on admission. patient sees nephrology at home in [place]. Nephrology on board. Please call with questions. Discussed Condition With: Patient, Dr. Brewster
--- NOTE | 2018-09-14 09:43 | P.PNIM ---
Subjective Interval history: No overnight events, no complaints. Denies any chest pain or shortness of breath. No palpitations. Agreed to doing CABG. Still coughing. Physical Exam Vital signs: Vital Signs 09/13/18 10:45 09/13/18 11:00 09/13/18 11:15 Temperature Pulse Rate 80 80 80 Respiratory Rate Blood Pressure 113/65 123/67 121/67 Pulse Oximetry 09/13/18 11:30 09/13/18 12:00 09/13/18 12:30 Temperature Pulse Rate 82 86 85 Respiratory Rate Blood Pressure 121/66 112/63 108/52 L Pulse Oximetry 09/13/18 12:37 09/13/18 13:00 09/13/18 13:30 Temperature Pulse Rate 70 70 72 Respiratory Rate Blood Pressure 123/69 127/65 Pulse Oximetry 09/13/18 14:00 09/13/18 14:30 09/13/18 15:00 Temperature Pulse Rate 82 70 75 Respiratory Rate Blood Pressure 121/66 Pulse Oximetry 09/13/18 15:30 09/13/18 16:00 09/13/18 16:30 Temperature 98.7 F Pulse Rate 79 74 75 Respiratory Rate Blood Pressure 125/78 135/75 Pulse Oximetry 95 09/13/18 17:00 09/13/18 17:30 09/13/18 18:00 Temperature Pulse Rate 74 80 92 H Respiratory Rate Blood Pressure 124/60 Pulse Oximetry 09/13/18 19:00 09/13/18 20:00 09/13/18 21:00 Temperature 98.6 F Pulse Rate 85 82 90 Respiratory Rate 22 Blood Pressure 125/65 Pulse Oximetry 95 09/13/18 22:00 09/13/18 23:00 09/14/18 00:00 Temperature 98.4 F Pulse Rate 71 78 69 Respiratory Rate 20 Blood Pressure 116/50 L Pulse Oximetry 95 09/14/18 00:10 09/14/18 00:12 09/14/18 01:00 Temperature Pulse Rate 74 78 Respiratory Rate 18 Blood Pressure Pulse Oximetry 94 L 09/14/18 02:00 09/14/18 03:00 09/14/18 04:00 Temperature 97.8 F Pulse Rate 74 76 80 Respiratory Rate 16 Blood Pressure 112/60 Pulse Oximetry 95 09/14/18 05:00 09/14/18 06:00 09/14/18 07:59 Temperature Pulse Rate 78 84 77 Respiratory Rate 16 Blood Pressure 129/69 Pulse Oximetry 95 09/14/18 08:00 09/14/18 08:35 Temperature Pulse Rate 76 Respiratory Rate 18 Blood Pressure Pulse Oximetry 95 97 Intake & Output 09/13/18 09/14/18 09/14/18 18:59 06:59 18:59 Intake Total 631 / 631 720 / 720 Output Total 1150 / 1150 900 / 900 Balance -519 / -519 -180 / -180 Weight 97.5 kg Intake: IV 151 / 151 Heparin/NS PF Inj 1,000 ML @ 0 1 / 1 mls/hr .ROUTE .[facility] Rx#: [id number] Heparin/D5W 25,000 U/250 mL 25, 50 / 50 000 unit In 250 ml @ Per Protocol IV.CONT TITRATE PRN Rx #:[id number] Rocephin Inj 1,000 MG In NS Inj 100 / 100 100 ML @ 200 mls/hr IV.SIG Q24H [facility] Rx#:[id number] Oral 480 / 480 720 / 720 Output: Urine 1150 / 1150 900 / 900 Other: Date of Last Bowel Movement 09/13/18 09/13/18 09/11/18 Narrative: Not in distress, on room air Pupils equal round reactive, pink conjunctivae No JVD Regular rate and rhythm, no murmurs Occasional crackles. Abdomen soft, nontender No edema, no skull tenderness Alert awake and oriented x3, no cranial nerve deficits, no focal deficits. Results Labs CBC & Chem 7: 09/13/18 07:20 09/13/18 07:20 Imaging Imaging: Impressions Abdomen/Bladder Ultrasound 09/11/18 00:00 CONCLUSION: 1. Right renal cyst. 2. Kidneys otherwise appear unremarkable. Carotid Doppler Study 09/13/18 15:02 CONCLUSION: 1. Right Internal Carotid Artery: Findings indicate <50% stenosis. 2. Left Internal Carotid Artery: Findings indicate <50% stenosis. Lower Extremity Ultrasound 09/13/18 15:02 CONCLUSION: 1. Patent lower extremity veins with venous mapping measurements, as above. Assessment and Plan (1) Non-ST elevation [place] (NSTEMI): Code(s): I21.4 - Non-ST elevation (NSTEMI) myocardial infarction Status: Acute Plan This is a 78-year-old male with history of diabetes mellitus, chronic kidney disease stage IV, atrial fibrillation status post pacemaker placement, recently being worked up for multiple myeloma presenting with progressive shortness of breath and cough for 3 days after driving about 2 weeks ago from [place]. Found to have severe three-vessel coronary artery disease after cardiac catheterization. Shortness of breath and cough, likely secondary to pneumonia - doubt COPD, no wheezing. chest x-ray showed bilateral infiltrates, with WBC of 11.8 leukocytosis with neutrophilic predominance and monocytosis. Patient also being worked up for multiple myeloma hence may be immunocompromised. Renal function precludes using a CTA of the chest to rule out PE, VQ scan showed low probability for PE. Negative DVT on bilateral leg Doppler ultrasound. Ceftriaxone, switch to Ceftin to finish on September 18., finish oral azithromycin. Continue Antitussives, duo nebs as needed, Mucomyst nebs. R/o diastolic CHF - TTE showed basal hyperthrophy with sigmoid septum, EF 45-50% , moderate to severe MR, cardiology and nephrology following, may benefit from a dose of Lasix for congestion and cough. Lasix has been on hold, will give a dose of Lasix today, discussed with Dr. Ortiz. Non-ST elevated myocardial infarction with chest pain- possible UA, EKG showed first-degree AV block, RBBB, troponin maxed to 4.5. On heparin drip, aspirin , imdur, Morphine as needed for pain. LDL is 42. Status post cardiac catheterization, showed severe three-vessel coronary artery disease, cardiothoracic surgery consulted, plan is for CABG on 09/16. Atrial fibrillation-status post pacemaker placement, currently in sinus rhythm, patient is on heparin drip anticipating surgery. Continue Coreg, Multaq Diabetes mellitus-continue Levemir at home dose with sliding scale insulin. Hold Januvia. Hemoglobin A1c 6.7. History of gout-hold allopurinol due to renal function. Hypertension-continue Norvasc, Coreg Nutrition-optimize nutrition preop, start Ensure Chronic kidney disease stage IV, non-oliguric -unsure baseline creatinine, monitor closely. Check I's and O's. Nephrology following. Might need dialysis, PermCath placement per nephrology. As above, will give a dose of Lasix today. DVT prophylaxis: Heparin Medically not ready. CABG 09/16. Will probably need SNF
[2018-09-14] MEDS: Insulin NovoLOG Aspart Correctional Sugar Inj SQ SCH ×4 (09:49→21:46)
[2018-09-14] MEDS: Docusate Sodium 100 MG Capsule PO SCH (09:50)
[2018-09-14] MEDS: Carvedilol 12.5 MG Tablet PO SCH ×2 (09:50→21:34)
[2018-09-14] MEDS: Azithromycin 250 MG Tablet PO SCH (09:51)
[2018-09-14] MEDS: amLODIPine 5 MG Tablet PO SCH (09:51)
[2018-09-14] MEDS: Pantoprazole Sodium 20 MG DR Tablet PO SCH ×2 (09:51→21:35)
--- NOTE | 2018-09-14 10:08 | P.PNCV ---
- Note Subjective/Hospital Course: A 78-year-old male, visiting from the [facility] here with his who presented to the emergency room with shortness of breath, cough, occasional sputum production greenish color, some congestion. No orthopnea, no lower extremity edema. No nausea or vomiting. No chest pain. He went to the Urgent Care and was prescribed some doxycycline, prednisone and antitussives, but did not feel any better. Started developing right-sided chest discomfort that was sharp, nonradiating, not associated with nausea. He was in a car. He drove for 3 days from the [place] area 08/26/2018 and arrived here on 08/29/2018. They did a complete workup on him and are treating him for bilateral infiltrates. He was also found to have acute kidney failure. He has a history of chronic kidney disease. 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 He also is on Coumadin for intermittent atrial fibrillation. They did a venous Doppler. There was no evidence of DVT. V/Q scan was low probability. He was further worked up. He had a mildly elevated troponin at 2.34. He was ruled in for a non-STEMI. He underwent cardiac catheterization showing 90% stenosis in the LAD, 95% proximal left circumflex, proximal left circumflex was 50, the RCA was 30%. The patient also was found to have moderate to severe mitral regurgitation. Cardiac catheterization revealed an ejection fraction of 45-50%, moderate to severe mitral valve regurgitation, trace tricuspid regurgitation. We were consulted to evaluate for coronary artery bypass grafting and mitral valve repair versus replacement. PAST MEDICAL HISTORY: Includes atrial fibrillation, diabetes mellitus, gastroesophageal reflux disease, glaucoma, gout, hypertension, prostate cancer, stage IV kidney disease, history of multiple myeloma where he was being worked up to have a bone biopsy. 09/14 on 3 liter nasal cannula feels a little better will check PA & lateral CXR today , also repeat labs pending pt on nonoliguric, no chest pain during the night Objective: Vital Signs - 24 hr 09/13/18 10:45 09/13/18 11:00 09/13/18 11:15 Temperature Pulse Rate 80 80 80 Respiratory Rate Blood Pressure 113/65 123/67 121/67 Pulse Oximetry 09/13/18 11:30 09/13/18 12:00 09/13/18 12:30 Temperature Pulse Rate 82 86 85 Respiratory Rate Blood Pressure 121/66 112/63 108/52 L Pulse Oximetry 09/13/18 12:37 09/13/18 13:00 09/13/18 13:30 Temperature Pulse Rate 70 70 72 Respiratory Rate Blood Pressure 123/69 127/65 Pulse Oximetry 09/13/18 14:00 09/13/18 14:30 09/13/18 15:00 Temperature Pulse Rate 82 70 75 Respiratory Rate Blood Pressure 121/66 Pulse Oximetry 09/13/18 15:30 09/13/18 16:00 09/13/18 16:30 Temperature 98.7 F Pulse Rate 79 74 75 Respiratory Rate Blood Pressure 125/78 135/75 Pulse Oximetry 95 09/13/18 17:00 09/13/18 17:30 09/13/18 18:00 Temperature Pulse Rate 74 80 92 H Respiratory Rate Blood Pressure 124/60 Pulse Oximetry 09/13/18 19:00 09/13/18 20:00 09/13/18 21:00 Temperature 98.6 F Pulse Rate 85 82 90 Respiratory Rate 22 Blood Pressure 125/65 Pulse Oximetry 95 09/13/18 22:00 09/13/18 23:00 09/14/18 00:00 Temperature 98.4 F Pulse Rate 71 78 69 Respiratory Rate 20 Blood Pressure 116/50 L Pulse Oximetry 95 09/14/18 00:10 09/14/18 00:12 09/14/18 01:00 Temperature Pulse Rate 74 78 Respiratory Rate 18 Blood Pressure Pulse Oximetry 94 L 09/14/18 02:00 09/14/18 03:00 09/14/18 04:00 Temperature 97.8 F Pulse Rate 74 76 80 Respiratory Rate 16 Blood Pressure 112/60 Pulse Oximetry 95 09/14/18 05:00 09/14/18 06:00 09/14/18 07:59 Temperature Pulse Rate 78 84 77 Respiratory Rate 16 Blood Pressure 129/69 Pulse Oximetry 95 09/14/18 08:00 09/14/18 08:35 Temperature Pulse Rate 76 Respiratory Rate 18 Blood Pressure Pulse Oximetry 95 97 GENERAL: A&O x 3 SKIN: Warm and dry. HEAD: Normocephalic. EYES: No scleral icterus. No injection or drainage. NECK: Supple, trachea midline. No JVD or lymphadenopathy. CARDIOVASCULAR: Regular rate and rhythm without murmurs, gallops, or rubs. RESPIRATORY: diminished in bases Breath sounds equal bilaterally. No accessory muscle use. GASTROINTESTINAL: Abdomen soft, non-tender, nondistended. MUSCULOSKELETAL: No cyanosis, or edema. BACK: Nontender without obvious deformity. No CVA tenderness. Labs: Laboratory Results - last 12 hr 09/13/18 09/14/18 09/14/18 21:35 04:46 07:58 PT 11.4 INR 1.1 POC Glucose 125 H Nasal Screen MRSA (PCR) Not detected Result Diagrams: 09/13/18 07:20 09/13/18 07:20 - Plan (1) Non-ST elevation [place] (NSTEMI) Plan: ASA, statin, add low dose BB, stop norvasc for surgery Thur check PA&Lat CXR today (2) Dyspnea (4) Diabetes mellitus Plan: on insulin sliding scale HGB A1C 6.7 (5) Multiple myeloma Plan: being followed at home in [facility] (2) Dyspnea Qualifiers: Dyspnea type: unspecified Qualified Code(s): R06.00 - Dyspnea, unspecified
[2018-09-14 13:00] LABS: Calcium 8.4 mg/dL (8.5-10.1); Potassium 3.8 meq/L (3.5-5.1)
--- NOTE | 2018-09-14 13:57 | XR ---
EXAM DATE: 09/14/2018 1:31 PM EST AGE/SEX: 78 years / Male INDICATIONS: Evaluate for pneumonia, pneumothorax, or communicable disease. CLINICAL DATA: This is the patient's initial encounter. Patient reports that signs and symptoms have been present for 1 day and indicates a pain score of 0/10. MEDICAL/SURGICAL HISTORY: . A-fib. Achilles tendon injury. Diabetes. Radiation therapy. Cholecy stectomy. GERD. Glaucoma. Gout. Hypertension. Pacemaker. Prostate cancer. Stage 4 chronic kidney dise ase. . . . Cataract removal with insertion of prosthetic lens. Hernia repair. Hemorrhoidectomy. Appe ndectomy COMPARISON: [facility], CHEST 1V SINGLE AP, 09/10/2018. . FINDINGS: Mild patchy infiltrate of both lung bases with tiny bilateral pleural effusions. No dense or confluen t consolidation.. No pneumothorax. Heart size within normal limits. CONCLUSION: Trace pleural fluid and mild patchy parenchymal consolidation of each lung base. Electronically signed by: Foster Falcon MD Board Certified Radiologist 09/14/2018 1:56 PM EST
[2018-09-14] MEDS: Insulin Detemir Inj 1,000 UNIT/10 ML Vial SQ SCH (17:18)
[2018-09-14] MEDS: Latanoprost 0.005% Opth Drops 2.5 ML Bottle EACH EYE SCH (17:28)
--- NOTE | 2018-09-14 18:48 | P.PNNP ---
Subjective Interval history: Patient seen in the afternoon, alert, has mild SOB in AM, not in distress. Physical Exam Vital signs: Vital Signs 09/13/18 19:00 09/13/18 20:00 09/13/18 21:00 Temperature 98.6 F Pulse Rate 85 82 90 Respiratory Rate 22 Blood Pressure 125/65 Pulse Oximetry 95 09/13/18 22:00 09/13/18 23:00 09/14/18 00:00 Temperature 98.4 F Pulse Rate 71 78 69 Respiratory Rate 20 Blood Pressure 116/50 L Pulse Oximetry 95 09/14/18 00:10 09/14/18 00:12 09/14/18 01:00 Temperature Pulse Rate 74 78 Respiratory Rate 18 Blood Pressure Pulse Oximetry 94 L 09/14/18 02:00 09/14/18 03:00 09/14/18 04:00 Temperature 97.8 F Pulse Rate 74 76 80 Respiratory Rate 16 Blood Pressure 112/60 Pulse Oximetry 95 09/14/18 05:00 09/14/18 06:00 09/14/18 07:00 Temperature Pulse Rate 78 84 93 H Respiratory Rate Blood Pressure Pulse Oximetry 09/14/18 07:59 09/14/18 08:00 09/14/18 08:35 Temperature Pulse Rate 77 78 76 Respiratory Rate 16 18 Blood Pressure 129/69 Pulse Oximetry 95 95 97 09/14/18 09:00 09/14/18 10:00 09/14/18 11:00 Temperature 97.7 F Pulse Rate 80 80 71 Respiratory Rate 16 Blood Pressure 137/68 Pulse Oximetry 95 09/14/18 11:02 09/14/18 12:00 09/14/18 13:00 Temperature Pulse Rate 74 70 Respiratory Rate Blood Pressure Pulse Oximetry 95 09/14/18 14:00 09/14/18 15:00 09/14/18 16:00 Temperature 97.8 F Pulse Rate 68 70 74 Respiratory Rate 16 Blood Pressure 106/58 L Pulse Oximetry 97 09/14/18 16:11 09/14/18 17:00 09/14/18 18:00 Temperature Pulse Rate 77 70 72 Respiratory Rate 18 Blood Pressure Pulse Oximetry 95 Intake & Output 09/13/18 09/14/18 09/14/18 18:59 06:59 18:59 Intake Total 631 / 631 720 / 720 1500 / 1500 Output Total 1150 / 1150 900 / 900 460 / 460 Balance -519 / -519 -180 / -180 1040 / 1040 Weight 97.5 kg Intake: IV 151 / 151 Heparin/NS PF Inj 1,000 ML @ 0 1 / 1 mls/hr .ROUTE .STK-MED ONE Rx#: [id number] Heparin/D5W 25,000 U/250 mL 25, 50 / 50 000 unit In 250 ml @ Per Protocol IV.CONT TITRATE PRN Rx #:[id number] Rocephin Inj 1,000 MG In NS Inj 100 / 100 100 ML @ 200 mls/hr IV.SIG Q24H CORINE Rx#:[id number] Oral 480 / 480 720 / 720 1500 / 1500 Output: Urine 1150 / 1150 900 / 900 460 / 460 Other: # Voids 3 Date of Last Bowel Movement 09/13/18 09/13/18 09/14/18 # Bowel Movements 3 Narrative: GENERAL: Well-developed well-nourished. In no acute distress. NECK: No carotid bruits. No JVD. CARDIOVASCULAR: Regular rate and rhythm. No murmur appreciated. RESPIRATORY: No accessory muscle use. Clear to auscultation. Breath sounds equal bilaterally. MUSCULOSKELETAL: No clubbing or cyanosis. No edema. Right radial and ulnar pulses intact. NEUROLOGICAL: Awake and alert. Normal speech. Assessment and Plan - Assessment (1) Stage 4 chronic kidney disease Code(s): N18.4 - Chronic kidney disease, stage 4 (severe) Status: Acute (2) Non-ST elevation [place] (NSTEMI) Code(s): I21.4 - Non-ST elevation (NSTEMI) myocardial infarction Status: Acute (3) Dyspnea Code(s): R06.00 - Dyspnea, unspecified Status: Acute Qualifiers: Dyspnea type: unspecified Qualified Code(s): R06.00 - Dyspnea, unspecified (4) Diabetes mellitus Code(s): E11.9 - Type 2 diabetes mellitus without complications Status: Acute - Plan Patient with stage 4 chronic kidney disease. He has been following with [employer]. As per patient he was told that he has GFR of 16 ml/min. Now he is admitted with chest pain and diagnosed with NSTEMI. Cardiology following. Post Cardiac Cath. results noted. Has 3 vessel disease disease and severe MR. Seen by Cardiac Surgery, for Cardiac Surgery. Creatinine is stable and at his baseline. Lasix given in AM. Possibility of Dialysis discussed with patient and family.
[2018-09-15] MEDS: RESP: Acetylcysteine 10% 4 ML Neb NEB SCH ×3 (00:01→15:35)
[2018-09-15] MEDS: Benzonatate 100 MG Capsule PO PRN ×2 (00:38→23:47)
[2018-09-15] MEDS: Isosorbide Mononitrate 30 MG ER 24HR Tablet (Imdur) PO SCH (06:37)
[2018-09-15 07:44] LABS: INR 1.1 Ratio; Prothrombin Time 11.2 sec (9.8-11.6)
[2018-09-15 07:47] LABS: Baso % (Auto) 0.6 % (0.0-2.0); Eos # (Auto) 0.2 th/mm3 (0.0-0.4); Eos % (Auto) 2.7 % (0.0-4.0); Hematocrit 26.2 % (39.0-51.0); Hemoglobin 9.2 gm/dL (13.0-17.0); Lymph # (Auto) 0.5 th/mm3 (1.0-4.8); Lymph % (Auto) 7.5 % (9.0-44.0); Mean Corpuscular Hemoglobin 34.9 pg (27.0-34.0); Mean Corpuscular Volume 99.6 fL (80.0-100.0); Mean Platelet Volume 7.6 fL (7.0-11.0); Mono % (Auto) 13.4 % (0.0-8.0); Neut # (Auto) 5.4 th/mm3 (1.8-7.7); Neut % (Auto) 75.8 % (16.0-70.0); Platelet Count 185 th/mm3 (150-450); Red Blood Count 2.64 mil/mm3 (4.50-5.90); Red Cell Distribution Width 13.8 % (11.6-17.2); White Blood Count 7.1 th/mm3 (4.0-11.0)
[2018-09-15 08:08] LABS: Albumin 2.7 g/dL (3.4-5.0); Anion Gap 10 meq/L (5-15); Aspartate Aminotransferase 17 U/L (15-37); Blood Urea Nitrogen 85 mg/dL (7-18); Calcium 8.2 mg/dL (8.5-10.1); Carbon Dioxide 25.2 meq/L (21.0-32.0); Chloride 106 meq/L (98-107); Glomerular Filtration Rate 14 mL/min (>89); Glucose,Random 127 mg/dL (74-106); Potassium 3.9 meq/L (3.5-5.1); Sodium 141 meq/L (136-145)
[2018-09-15 08:11] LABS: Alanine Aminotransferase 16 U/L (12-78); Alkaline Phosphatase 72 U/L (45-117); Total Protein 6.5 g/dL (6.4-8.2)
[2018-09-15 08:29] LABS: Lymphocytes 6 % (9-44); Metamyelocytes 7 % (0-1); Monocytes 6 % (0-8); Myelocytes 3 % (0-0)
[2018-09-15 08:30] LABS: Platelet Estimate Normal (Normal); Platelet Morphology Normal (Normal); Toxic Granulation 1+
[2018-09-15] MEDS: Insulin NovoLOG Aspart Correctional Sugar Inj SQ SCH ×5 (08:47→21:10)
[2018-09-15] MEDS: Azithromycin 250 MG Tablet PO SCH (09:13)
[2018-09-15] MEDS: Carvedilol 12.5 MG Tablet PO SCH ×2 (09:14→21:01)
[2018-09-15] MEDS: amLODIPine 5 MG Tablet PO SCH (09:14)
[2018-09-15] MEDS: Docusate Sodium 100 MG Capsule PO SCH (09:14)
[2018-09-15] MEDS: Pantoprazole Sodium 20 MG DR Tablet PO SCH ×2 (09:14→21:02)
[2018-09-15 09:36] LABS: Bilirubin,Urine Negative (Negative); Clarity,Urine Clear (Clear); Color,Urine Yellow (Yellw/Straw); Glucose,Urine (UA) Negative (Negative); Leukocyte Esterase,Urine Negative (Negative); Nitrite,Urine Negative (Negative); Specific Gravity,Urine 1.013 (1.002-1.035); Squamous Epithelial Cell,Urine 1 /hpf (0-5)
--- NOTE | 2018-09-15 10:03 | P.PNIM ---
Subjective Interval history: Follow-up for chest pain Oxygen at 2 L, no chest pain overnight, no palpitations. Cough is a little bit better but had an episode of shortness of breath last night which sounds like paroxysmal nocturnal dyspnea while he was lying down. Resolved. Physical Exam Vital signs: Vital Signs 09/14/18 11:00 09/14/18 11:02 09/14/18 12:00 Temperature 97.7 F Pulse Rate 71 74 Respiratory Rate 16 Blood Pressure 137/68 Pulse Oximetry 95 95 09/14/18 13:00 09/14/18 14:00 09/14/18 15:00 Temperature Pulse Rate 70 68 70 Respiratory Rate Blood Pressure Pulse Oximetry 09/14/18 16:00 09/14/18 16:11 09/14/18 17:00 Temperature 97.8 F Pulse Rate 74 77 70 Respiratory Rate 16 18 Blood Pressure 106/58 L Pulse Oximetry 97 95 09/14/18 18:00 09/14/18 19:45 09/14/18 20:00 Temperature 98.4 F Pulse Rate 72 73 Respiratory Rate 16 Blood Pressure 126/7 L Pulse Oximetry 96 95 09/14/18 20:09 09/14/18 21:00 09/14/18 22:00 Temperature Pulse Rate 74 80 68 Respiratory Rate Blood Pressure Pulse Oximetry 09/14/18 23:00 09/15/18 00:00 09/15/18 00:01 Temperature 98.2 F Pulse Rate 72 76 Respiratory Rate 16 18 Blood Pressure 120/65 Pulse Oximetry 95 09/15/18 00:11 09/15/18 01:00 09/15/18 02:00 Temperature Pulse Rate 69 68 70 Respiratory Rate Blood Pressure Pulse Oximetry 09/15/18 03:00 09/15/18 04:00 09/15/18 05:00 Temperature 98.2 F Pulse Rate 74 75 68 Respiratory Rate 16 Blood Pressure 104/52 L Pulse Oximetry 94 L 09/15/18 06:00 09/15/18 08:13 Temperature 97.9 F Pulse Rate 68 74 Respiratory Rate 18 Blood Pressure 129/67 Pulse Oximetry 96 Intake & Output 09/14/18 09/15/18 09/15/18 18:59 06:59 18:59 Intake Total 1500 / 1500 240 / 240 Output Total 460 / 460 675 / 675 Balance 1040 / 1040 -435 / -435 Weight 97.5 kg Intake: Oral 1500 / 1500 240 / 240 Output: Urine 460 / 460 675 / 675 Other: # Voids 3 Date of Last Bowel Movement 09/14/18 09/14/18 09/15/18 # Bowel Movements 3 Narrative: Not in distress, on 2 L of oxygen Pupils equal round reactive, pink conjunctivae No JVD Regular rate and rhythm, no murmurs Clear breath sounds now, no crackles or wheezing. Abdomen soft, nontender No edema, no skull tenderness Alert awake and oriented x3, no cranial nerve deficits, no focal deficits. Results Labs CBC & Chem 7: 09/15/18 07:24 09/15/18 07:24 Imaging Imaging: Impressions Chest X-Ray 09/14/18 10:02 CONCLUSION: Trace pleural fluid and mild patchy parenchymal consolidation of each lung base. Assessment and Plan (1) Non-ST elevation [place] (NSTEMI): Code(s): I21.4 - Non-ST elevation (NSTEMI) myocardial infarction Status: Acute (2) Dyspnea: Code(s): R06.00 - Dyspnea, unspecified Status: Acute (3) Stage 4 chronic kidney disease: Code(s): N18.4 - Chronic kidney disease, stage 4 (severe) Status: Acute (4) Diabetes mellitus: Code(s): E11.9 - Type 2 diabetes mellitus without complications Status: Acute (5) Multiple myeloma: Code(s): C90.00 - Multiple myeloma not having achieved remission Status: Acute Plan This is a 78-year-old male with history of diabetes mellitus, chronic kidney disease stage IV, atrial fibrillation status post pacemaker placement, recently being worked up for multiple myeloma presenting with progressive shortness of breath and cough for 3 days after driving about 2 weeks ago from [place]. Found to have severe three-vessel coronary artery disease after cardiac catheterization. Shortness of breath and cough, likely secondary to pneumonia - doubt COPD, no wheezing. chest x-ray showed bilateral infiltrates, with WBC of 11.8 leukocytosis with neutrophilic predominance and monocytosis. Patient also being worked up for multiple myeloma hence may be immunocompromised. Renal function precludes using a CTA of the chest to rule out PE, VQ scan showed low probability for PE. Negative DVT on bilateral leg Doppler ultrasound. Was on [id number], switched to Ceftin to finish on September 18, finish oral azithromycin. Continue Antitussives, duo nebs as needed, Mucomyst nebs. 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 Creatinine bumped a little bit. Recheck BMP tomorrow. Non-ST elevated myocardial infarction with chest pain- possible UA, EKG showed first-degree AV block, RBBB, troponin maxed to 4.5. On heparin drip, aspirin , imdur, Morphine as needed for pain. LDL is 42. Status post cardiac catheterization, showed severe three-vessel coronary artery disease, cardiothoracic surgery consulted, plan is for CABG on 09/16. Chronic kidney disease stage IV, non-oliguric -unsure baseline creatinine, monitor closely. Check I's and O's. Nephrology following. Might need dialysis, PermCath placement per nephrology. Recheck BMP tomorrow. Atrial fibrillation-status post pacemaker placement, currently in sinus rhythm, patient is on heparin drip anticipating surgery. Continue Coreg, Multaq Diabetes mellitus-continue Levemir at home dose with sliding scale insulin. Hold Januvia. Hemoglobin A1c 6.7. History of gout-hold allopurinol due to renal function. Hypertension-continue Norvasc, Coreg Nutrition-optimize nutrition preop, start Ensure Insomnia-patient something for sleep tonight, will give Restoril DVT prophylaxis: Heparin Medically not ready. CABG 09/16. Will probably need SNF the patient is from [place] Progress Note: Quality VTE Deep Vein Thrombosis/Pulmonary Embolism Present on Admission: No _ (1) Dyspnea Qualifiers: Dyspnea type: unspecified Qualified Code(s): R06.00 - Dyspnea, unspecified (2) Diabetes mellitus Qualifiers: Diabetes mellitus type: Diabetes mellitus mcc insulin use: Diabetes mellitus complication status: Diabetes mellitus complication detail: Diabetic retinopathy severity: Proliferative retinopathy type: Diabetes mellitus macular edema: Laterality: Chronic kidney disease stage: (3) Multiple myeloma Qualifiers: Multiple myeloma remission status:
--- NOTE | 2018-09-15 10:04 | P.PNCV ---
- Note Subjective/Hospital Course: A 78-year-old male, visiting from the [facility] here with his who presented to the emergency room with shortness of breath, cough, occasional sputum production greenish color, some congestion. No orthopnea, no lower extremity edema. No nausea or vomiting. No chest pain. He went to the Urgent Care and was prescribed some doxycycline, prednisone and antitussives, but did not feel any better. Started developing right-sided chest discomfort that was sharp, nonradiating, not associated with nausea. He was in a car. He drove for 3 days from the [place] area 08/26/2018 and arrived here on 08/29/2018. They did a complete workup on him and are treating him for bilateral infiltrates. He was also found to have acute kidney failure. He has a history of chronic kidney disease. 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 He also is on Coumadin for intermittent atrial fibrillation. They did a venous Doppler. There was no evidence of DVT. V/Q scan was low probability. He was further worked up. He had a mildly elevated troponin at 2.34. He was ruled in for a non-STEMI. He underwent cardiac catheterization showing 90% stenosis in the LAD, 95% proximal left circumflex, proximal left circumflex was 50, the RCA was 30%. The patient also was found to have moderate to severe mitral regurgitation. Cardiac catheterization revealed an ejection fraction of 45-50%, moderate to severe mitral valve regurgitation, trace tricuspid regurgitation. We were consulted to evaluate for coronary artery bypass grafting and mitral valve repair versus replacement. PAST MEDICAL HISTORY: Includes atrial fibrillation, diabetes mellitus, gastroesophageal reflux disease, glaucoma, gout, hypertension, prostate cancer, stage IV kidney disease, history of multiple myeloma where he was being worked up to have a bone biopsy. 09/14 on 3 liter nasal cannula feels a little better will check PA & lateral CXR today , also repeat labs pending pt on nonoliguric, no chest pain during the night 09/15 worsening renal indices Nephrology following , for surgery in am placement of perm cath as per Nephro decision no chest pain last night Objective: Vital Signs - 24 hr 09/14/18 11:00 09/14/18 11:02 09/14/18 12:00 Temperature 97.7 F Pulse Rate 71 74 Respiratory Rate 16 Blood Pressure 137/68 Pulse Oximetry 95 95 09/14/18 13:00 09/14/18 14:00 09/14/18 15:00 Temperature Pulse Rate 70 68 70 Respiratory Rate Blood Pressure Pulse Oximetry 09/14/18 16:00 09/14/18 16:11 09/14/18 17:00 Temperature 97.8 F Pulse Rate 74 77 70 Respiratory Rate 16 18 Blood Pressure 106/58 L Pulse Oximetry 97 95 09/14/18 18:00 09/14/18 19:45 09/14/18 20:00 Temperature 98.4 F Pulse Rate 72 73 Respiratory Rate 16 Blood Pressure 126/7 L Pulse Oximetry 96 95 09/14/18 20:09 09/14/18 21:00 09/14/18 22:00 Temperature Pulse Rate 74 80 68 Respiratory Rate Blood Pressure Pulse Oximetry 09/14/18 23:00 09/15/18 00:00 09/15/18 00:01 Temperature 98.2 F Pulse Rate 72 76 Respiratory Rate 16 18 Blood Pressure 120/65 Pulse Oximetry 95 09/15/18 00:11 09/15/18 01:00 09/15/18 02:00 Temperature Pulse Rate 69 68 70 Respiratory Rate Blood Pressure Pulse Oximetry 09/15/18 03:00 09/15/18 04:00 09/15/18 05:00 Temperature 98.2 F Pulse Rate 74 75 68 Respiratory Rate 16 Blood Pressure 104/52 L Pulse Oximetry 94 L 09/15/18 06:00 09/15/18 08:13 Temperature 97.9 F Pulse Rate 68 74 Respiratory Rate 18 Blood Pressure 129/67 Pulse Oximetry 96 GENERAL: A&O x 3 SKIN: Warm and dry. HEAD: Normocephalic. EYES: No scleral icterus. No injection or drainage. NECK: Supple, trachea midline. No JVD or lymphadenopathy. CARDIOVASCULAR: Regular rate and rhythm without gallops, or rubs, 2/6 SM trace edema lower ext RESPIRATORY: Breath sounds equal bilaterally. No accessory muscle use. GASTROINTESTINAL: Abdomen soft, non-tender, nondistended. MUSCULOSKELETAL: No cyanosis, or edema. BACK: Nontender without obvious deformity. No CVA tenderness. Labs: Laboratory Results - last 12 hr 09/13/18 09/15/18 09/15/18 15:54 07:24 07:24 WBC 7.1 RBC 2.64 L Hgb 9.2 L Hct 26.2 L MCV 99.6 MCH 34.9 H MCHC 35.0 RDW 13.8 Plt Count 185 MPV 7.6 Prelim Diff (Auto) Slide review pending Neut % (Auto) 75.8 H Lymph % (Auto) 7.5 L Davis % (Auto) 13.4 H Eos % (Auto) 2.7 Baso % (Auto) 0.6 Neut # (Auto) 5.4 Lymph # (Auto) 0.5 L Davis # (Auto) 1.0 H Eos # (Auto) 0.2 Baso # (Auto) 0.0 WBC Differential Manual diff final Seg Neuts % (Manual) 69 Band Neuts % (Manual) 6 Lymphocytes % (Manual) 6 L Monocytes % (Manual) 6 Basophils % (Manual) 3 H Metamyelocytes % (Man) 7 H Myelocytes % (Man) 3 H Abs Neuts (Manual) 6.0 Differential Comment . Toxic Granulation 1+ H Platelet Estimate Normal Platelet Morphology Normal PT 11.2 INR 1.1 Sodium Potassium Chloride Carbon Dioxide Anion Gap BUN Creatinine Estimated GFR POC Glucose Random Glucose Calcium Total Bilirubin AST ALT Alkaline Phosphatase Total Protein Albumin Urine Color Urine Clarity Urine pH Ur Specific [place] Urine Protein Urine Glucose (UA) Urine Ketones Urine Occult Blood Urine Nitrate Urine Bilirubin Urine Urobilinogen Ur Leukocyte Esterase Urine WBC Ur Squamous Epith Cells Micro UA Comment Ur Microscopic Review Urine Culture Comments Blood Type Antibody Screen MTS Gel Crossmatch See Detail 09/15/18 09/15/18 09/15/18 07:24 07:24 08:10 WBC RBC Hgb Hct MCV MCH MCHC RDW Plt Count MPV Prelim Diff (Auto) Neut % (Auto) Lymph % (Auto) Davis % (Auto) Eos % (Auto) Baso % (Auto) Neut # (Auto) Lymph # (Auto) Davis # (Auto) Eos # (Auto) Baso # (Auto) WBC Differential Seg Neuts % (Manual) Band Neuts % (Manual) Lymphocytes % (Manual) Monocytes % (Manual) Basophils % (Manual) Metamyelocytes % (Man) Myelocytes % (Man) Abs Neuts (Manual) Differential Comment Toxic Granulation Platelet Estimate Platelet Morphology PT INR Sodium 141 Potassium 3.9 Chloride 106 Carbon Dioxide 25.2 Anion Gap 10 BUN 85 H Creatinine 4.13 H Estimated GFR 14 L POC Glucose 151 H Random Glucose 127 H Calcium 8.2 L Total Bilirubin 0.7 AST 17 ALT 16 Alkaline Phosphatase 72 Total Protein 6.5 Albumin 2.7 L Urine Color Urine Clarity Urine pH Ur Specific [place] Urine Protein Urine Glucose (UA) Urine Ketones Urine Occult Blood Urine Nitrate Urine Bilirubin Urine Urobilinogen Ur Leukocyte Esterase Urine WBC Ur Squamous Epith Cells Micro UA Comment Ur Microscopic Review Urine Culture Comments Blood Type B Positive Antibody Screen Negative MTS Gel Crossmatch See Detail 09/15/18 08:25 WBC RBC Hgb Hct MCV MCH MCHC RDW Plt Count MPV Prelim Diff (Auto) Neut % (Auto) Lymph % (Auto) Davis % (Auto) Eos % (Auto) Baso % (Auto) Neut # (Auto) Lymph # (Auto) Davis # (Auto) Eos # (Auto) Baso # (Auto) WBC Differential Seg Neuts % (Manual) Band Neuts % (Manual) Lymphocytes % (Manual) Monocytes % (Manual) Basophils % (Manual) Metamyelocytes % (Man) Myelocytes % (Man) Abs Neuts (Manual) Differential Comment Toxic Granulation Platelet Estimate Platelet Morphology PT INR Sodium Potassium Chloride Carbon Dioxide Anion Gap BUN Creatinine Estimated GFR POC Glucose Random Glucose Calcium Total Bilirubin AST ALT Alkaline Phosphatase Total Protein Albumin Urine Color Yellow Urine Clarity Clear Urine pH 5.0 Ur Specific [place] 1.013 Urine Protein Negative Urine Glucose (UA) Negative Urine Ketones Negative Urine Occult Blood Negative Urine Nitrate Negative Urine Bilirubin Negative Urine Urobilinogen Less than 2 Ur Leukocyte Esterase Negative Urine WBC 1 Ur Squamous Epith Cells 1 Micro UA Comment Culture not ind Ur Microscopic Review Not Reportable Urine Culture Comments Culture not ind Blood Type Antibody Screen MTS Gel Crossmatch Result Diagrams: 09/15/18 07:24 09/15/18 07:24 - Plan (1) Non-ST elevation [place] (NSTEMI) Plan: ASA, statin, add low dose BB, stop norvasc for surgery Thur CXR improved / now on 2 liter nasal cannula (2) Dyspnea (3) Stage 4 chronic kidney disease Plan: creatinine 4.13 non oliguric ? placement of permcath (4) Diabetes mellitus Plan: on insulin sliding scale HGB A1C 6.7 (5) Multiple myeloma Plan: being followed at home in [facility] (2) Dyspnea Qualifiers: Dyspnea type: unspecified Qualified Code(s): R06.00 - Dyspnea, unspecified
[2018-09-15 16:04] LABS: Hemoglobin A1c 6.6 % (4.3-6.0)
[2018-09-15 16:57] LABS: INR 1.1 Ratio; Prothrombin Time 11.3 sec (9.8-11.6)
[2018-09-15] MEDS: Insulin Detemir Inj 1,000 UNIT/10 ML Vial SQ SCH (17:56)
[2018-09-15] MEDS: Latanoprost 0.005% Opth Drops 2.5 ML Bottle EACH EYE SCH (17:57)
--- NOTE | 2018-09-15 20:43 | P.PNNP ---
Subjective Interval history: Patient seen late afternoon, alert, sitting on the chair, no SOB. Physical Exam Vital signs: Vital Signs 09/14/18 21:00 09/14/18 22:00 09/14/18 23:00 Temperature Pulse Rate 80 68 72 Respiratory Rate Blood Pressure Pulse Oximetry 09/15/18 00:00 09/15/18 00:01 09/15/18 00:11 Temperature 98.2 F Pulse Rate 76 69 Respiratory Rate 16 18 Blood Pressure 120/65 Pulse Oximetry 95 09/15/18 01:00 09/15/18 02:00 09/15/18 03:00 Temperature Pulse Rate 68 70 74 Respiratory Rate Blood Pressure Pulse Oximetry 09/15/18 04:00 09/15/18 05:00 09/15/18 06:00 Temperature 98.2 F Pulse Rate 75 68 68 Respiratory Rate 16 Blood Pressure 104/52 L Pulse Oximetry 94 L 09/15/18 07:00 09/15/18 07:50 09/15/18 08:00 Temperature Pulse Rate 68 71 77 Respiratory Rate 16 Blood Pressure Pulse Oximetry 98 09/15/18 08:13 09/15/18 09:00 09/15/18 10:00 Temperature 97.9 F Pulse Rate 74 76 74 Respiratory Rate 18 Blood Pressure 129/67 Pulse Oximetry 96 09/15/18 11:00 09/15/18 11:49 09/15/18 12:00 Temperature 99.5 F Pulse Rate 76 74 84 Respiratory Rate 18 Blood Pressure 131/69 Pulse Oximetry 94 L 09/15/18 13:00 09/15/18 14:00 09/15/18 15:00 Temperature Pulse Rate 72 74 74 Respiratory Rate 16 Blood Pressure Pulse Oximetry 09/15/18 16:00 09/15/18 17:00 09/15/18 18:00 Temperature 97.4 F L Pulse Rate 71 82 74 Respiratory Rate 18 Blood Pressure 130/66 Pulse Oximetry 93 L Intake & Output 09/15/18 09/15/18 09/16/18 06:59 18:59 06:59 Intake Total 240 / 240 940 / 940 Output Total 675 / 675 775 / 775 Balance -435 / -435 165 / 165 Weight 97.5 kg Intake: Oral 240 / 240 940 / 940 Output: Urine 675 / 675 775 / 775 Other: Date of Last Bowel Movement 09/14/18 09/15/18 # Bowel Movements 4 Narrative: GENERAL: Well-developed well-nourished. In no acute distress. NECK: No carotid bruits. No JVD. CARDIOVASCULAR: Regular rate and rhythm. No murmur appreciated. RESPIRATORY: No accessory muscle use. Clear to auscultation. Breath sounds equal bilaterally. MUSCULOSKELETAL: No clubbing or cyanosis. No edema. Right radial and ulnar pulses intact. NEUROLOGICAL: Awake and alert. Normal speech. Assessment and Plan - Assessment (1) Stage 4 chronic kidney disease Code(s): N18.4 - Chronic kidney disease, stage 4 (severe) Status: Acute (2) Non-ST elevation [place] (NSTEMI) Code(s): I21.4 - Non-ST elevation (NSTEMI) myocardial infarction Status: Acute (3) Dyspnea Code(s): R06.00 - Dyspnea, unspecified Status: Acute Qualifiers: Dyspnea type: unspecified Qualified Code(s): R06.00 - Dyspnea, unspecified (4) Diabetes mellitus Code(s): E11.9 - Type 2 diabetes mellitus without complications Status: Acute - Plan Patient with stage 4 chronic kidney disease. He has been following with Liability Claims Adjuster. As per patient he was told that he has GFR of 16 ml/min. Now he is admitted with chest pain and diagnosed with NSTEMI. Cardiology following. Post Cardiac Cath. results noted. Has 3 vessel disease disease and severe MR. Seen by Cardiac Surgery, for Cardiac Surgery. Creatinine increase slightly , now 4.1. Lasix given in AM. Possibility of Dialysis discussed with patient and family.
[2018-09-16] MEDS: RESP: Acetylcysteine 10% 4 ML Neb NEB SCH ×3 (01:04→18:13)
[2018-09-16] MEDS: Carvedilol 12.5 MG Tablet PO SCH (05:30)
[2018-09-16] MEDS ORDERED: ceFAZolin 2 GM Premix Inj 0 GM/0 ML PIGGYBACK IV.SIG ONE (06:12)
[2018-09-16] MEDS ORDERED: Heparin - SQ 10,000 UNITS/ML Vial ONE (06:13)
[2018-09-16] MEDS ORDERED: MethylPREDNISolone Sod Succinate Inj 125 MG/2 ML Vial ONE (06:13)
[2018-09-16] MEDS ORDERED: Sugammadex Inj 200 MG/2 ML Vial IV.PUSH ONE (06:47)
[2018-09-16] MEDS ORDERED: fentaNYL Citrate Inj 1,000 MCG/20 ML Vial ONE (06:48)
[2018-09-16] MEDS ORDERED: Potassium Chlor 40 mEq Premix 40 MEQ/100 ML PIGGYBACK ONE (07:19)
[2018-09-16] MEDS ORDERED: CUST1000P IRRIGATION ONE (07:19)
[2018-09-16] MEDS ORDERED: Heparin 10,000 UNITS/10 ML Vial (for IV use) ONE (07:20)
[2018-09-16] MEDS ORDERED: Calcium Chloride Inj 1 GM/10 ML Syringe ONE (07:21)
[2018-09-16] MEDS ORDERED: Albumin Human 25% Inj 50 ML IV.SIG ONE (07:22)
[2018-09-16] MEDS ORDERED: Sodium Chlor 0.9% Inj 500 ML IV.CONT ONE (07:27)
[2018-09-16] MEDS ORDERED: Sodium Chlor 0.9% Inj 300 ML IV.CONT ONE (07:27)
[2018-09-16] MEDS ORDERED: Normosol-R pH 7.4 Inj 2,000 ML IV.CONT ONE (07:27)
[2018-09-16] MEDS ORDERED: Aminocaproic Acid Inj 5,000 MG/20 ML Vial IV.CONT ONE (07:27)
[2018-09-16] MEDS ORDERED: Calcium Chloride Inj 1 GM/10 ML Syringe IV.CONT ONE (07:27)
[2018-09-16] MEDS ORDERED: Sodium Chlor 0.9% Inj 250 ML IV.CONT ONE (07:27)
[2018-09-16] MEDS ORDERED: Sodium Bicarbonate 8.4% Inj 50 MEQ/50 ML Syringe IV.CONT ONE (07:27)
[2018-09-16] MEDS ORDERED: Protamine Sulfate Inj 50 MG/5 ML Vial IV.CONT ONE (07:27)
[2018-09-16] MEDS ORDERED: Phenylephrine/NS 1000 MCG/10ML Syringe IV.PUSH ONE (07:27)
[2018-09-16] MEDS ORDERED: Dexmedetomidine Inj 200 MCG/2 ML Vial IV.CONT ONE (07:27)
[2018-09-16] MEDS ORDERED: DOPamine 800 MG/500 ML Premix 800 MG/500 ML PLAST..BAG IV.CONT ONE (07:27)
[2018-09-16] MEDS ORDERED: Heparin - SQ 10,000 UNITS/ML Vial OTHER ONE (07:27)
[2018-09-16] MEDS ORDERED: Albumin Human 5% Inj 250 ML IV.SIG PRN (13:03)
[2018-09-16] MEDS ORDERED: RESP: Racemic Epinephrine 2.25% 0.5 ML Neb NEB PRN (13:03)
[2018-09-16] MEDS ORDERED: Metoprolol Inj 5 MG/5 ML Vial IV.PUSH PRN (13:03)
[2018-09-16] MEDS ORDERED: Clevidipine Inj 25 MG/50 ML VIAL IV.CONT PRN (13:03)
[2018-09-16] MEDS ORDERED: Dextrose 50% in Water 50 ML Vial IV.PUSH PRN (13:03)
[2018-09-16] MEDS ORDERED: Calcium Chloride Inj 1 GM in Sodium Chlor 0.9% Inj 100 ML IV.SIG PRN (13:03)
[2018-09-16] MEDS ORDERED: DOPamine Inj 800 MG in Sodium Chlor 0.9% Inj 500 ML IV.CONT PRN (13:03)
[2018-09-16] MEDS ORDERED: Dexmedetomidine Inj 200 MCG in Sodium Chlor 0.9% Inj 48 ML IV.CONT PRN (13:03)
[2018-09-16] MEDS ORDERED: EPINEPHrine (1:1000) Inj 4 MG in Sodium Chlor 0.9% Inj 246 ML IV.CONT PRN (13:03)
[2018-09-16] MEDS ORDERED: Magnesium Sulfate Inj 2 GM in Sodium Chlor 0.9% Inj 96 ML IV.SIG PRN ×4 (13:03)
[2018-09-16] MEDS ORDERED: Calcium Chloride Inj 1 GM/10 ML Syringe IV.PUSH PRN (13:03)
[2018-09-16] MEDS ORDERED: hydrALAZINE HCl Inj 20 MG/ML Vial IV.PUSH PRN (13:03)
[2018-09-16] MEDS ORDERED: Post-op Orders (for Pharmacy) OTHER STA (13:03)
--- NOTE | 2018-09-16 13:25 | P.OP ---
- Preoperative Diagnosis (1) CAD (coronary artery disease) (2) Combined systolic and diastolic congestive heart failure (3) Non-ST elevation CT (NSTEMI) Postoperative Diagnosis: same Date of procedure: 09/16/18 Procedure: CABG x 4 BUSH to LAD - good SVG to OM1 - fair SVG to Ramus - good SVG to D1 - good JARON EVH (bilateral) Anesthesia: GETA Surgeon: Umm Ravi MD Manager Marketing: Katharina Dumont, Pathology: other (left atrial appendage) Operation and Findings: The risks, benefits, complications, treatment options, and expected outcomes were discussed with the patient. The possibilities of reaction to medication, pulmonary aspiration, perforation of viscus, bleeding, recurrent infection, the need for additional procedures, failure to diagnose a condition, and creating a complication requiring transfusion or operation were discussed with the patient. The patient concurred with the proposed plan, giving informed consent. The site of surgery properly noted/marked. The patient was taken to Operating Room, identified as Aftab Mccullough and the procedure verified as CABG, EVH, JARON. A Time Out was held and the above information confirmed. Standard monitoring lines and Durán catheter were placed. General anesthesia was induced. The patient was noted to have moderate MR on JARON. A decision was made intraoperativley to not intervene on this valve. The patient was prepped and draped in a sterile fashion. A median sternotomy was performed and electrocautery was used to obtain hemostasis. The left internal mammary artery was procured as a pedicle from the 7th rib to the 1st rib in the usual manner. Simultaneously left and right greater saphenous vein was procured from the left and right legs using a minimally invasive endoscopic technique. The vein was prepared for anastomosis and the leg wounds were irrigated and closed in 2 layers. The pericardium was opened and a pericardial sling was created using interrupted 0 silk sutures. The patient was heparinized for cardiopulmonary bypass and the distal mammary pedicle was instrumented for anastomosis. The heart was instrumented for cardiopulmonary bypass in the usual manner. Antegrade blood cardioplegia was employed. The patient was placed on cardiopulmonary bypass. The left atrial appendage was resected using a surgical stapler. An aortic cross-clamp was applied and the heart was arrested using cold blood cardioplegia. Antegrade cardioplegia was administered after he each anastomosis. After adequate arrest, the OM1 was opened with a [place] blade and found to be a 1 millimeter fair target. Saphenous vein was approximated to the OM1 artery using a running 7 0 Prolene suture. The graft was measured for length and orientation and the proximal anastomosis was constructed to the ascending aorta using a running 5 0 Prolene suture after creating an aortotomy with a 5 millimeter punch. The Ramus Intermedius was opened with a [place] blade and found to be a 1.5 millimeter good target. Saphenous vein was approximated to the RI artery using a running 7 0 Prolene suture. The graft was measured for length and orientation and the proximal anastomosis was constructed to the ascending aorta using a running 5 0 Prolene suture after creating an aortotomy with a 5 millimeter punch. The 1st diagonal artery was then opened with a [place] blade and found to be a 1.5 millimeter good target. Saphenous vein was approximated to the D1 artery using a running 7 0 Prolene suture. The graft was measured for length and orientation and was suspended from the pericardium. The distal LAD was opened with a [place] blade and found to be a 1.5 millimeter good target. The left internal mammary artery was approximated to the LAD using a running 7 0 Prolene suture. The pedicle was attached to the epicardium using interrupted 5 0 silk suture. The patient was systemically rewarmed and received a hotshot dose of warm blood cardioplegia. The aorta was vented and the proximal anastomosis to the D1 graft was accomplished using a running 5 0 Prolene suture after creating an aortotomy was a 5 millimeter punch. The cross -clamp was removed and all proximal and distal anastomoses were examined for hemostasis. The patient was weaned from cardiopulmonary bypass. Protamine was given. There was no adverse reaction. Decannulation was carried out without incident. Wound was checked for hemostasis which was obtained using electrocautery. A 36 [place] mediastinal and bilateral 32 [place] pleural chest tubes were placed and secured to the skin with 0 silk suture. The sternum was closed with stainless steel wire. The fascia was closed with 1. PDS. The subcutaneous tissue was closed using a running 2-0 Vicryl suture. The skin was closed with 4-0 Monocryl. Sterile dressings were placed. At the end of the operation, all sponge, instruments, and needle counts were correct. The patient was transferred to the CVICU in stable condition. Findings: Left pleural effusion drained 300 ml, serous fluid, Right pleural effusion drained 900ml serous, bloody pericardial effusion. EF improved to ~45% after revascularization from ~30%. MR was moderate. XC: 70 min CPB: 89 min Drains: mediastinal x 1 pleural x 2 Specimens: left atrial appendage Complications: none
[2018-09-16] MEDS ORDERED: RASS Change Order OTHER ONE (14:00)
[2018-09-16] MEDS: Insulin Regular (For Infusion) 100 UNIT in Sodium Chlor 0.9% Inj 99 ML IV.CONT PRN (14:00)
--- NOTE | 2018-09-16 14:42 | XR ---
EXAM DATE: 09/16/2018 2:23 PM EST AGE/SEX: 78 years / Male INDICATIONS: Post op heart surgery. CLINICAL DATA: This is the patient's subsequent encounter. Patient reports that signs and symptoms h ave been present for 1 day and indicates a pain score of Nonresponsive. MEDICAL/SURGICAL HISTORY: . A-fib. Achilles tendon injury. Diabetes. Radiation therapy. Cholec ystectomy. GERD. Glaucoma. Gout. Hypertension. Pacemaker. Prostate cancer. Stage 4 chronic kidney dis ease. . Cataract removal with insertion of prosthetic lens. Hernia repair. Hemorrhoidectomy. Appendec hugo. . [place] [facility] [place]. . FINDINGS: A single AP view of the chest demonstrates recent CABG. Endotracheal tube 9.5 cm above the antonietta. Na sogastric tube with tip likely in stomach. Right jugular central line with tip in the SVC. Bilateral chest tubes. No pneumothorax. Left-sided pacemaker with intact leads. Minimal perihilar densities. Th e cardiomediastinal contours are unremarkable. Osseous structures are intact. CONCLUSION: 1. Endotracheal tube 5.5 cm above the antonietta. This could be advanced a few centimeters. 2. Status post CABG with minimal perihilar densities. Electronically signed by: Timmy Mccrary MD Board Certified Radiologist 09/16/2018 2:41 PM EST
[2018-09-16] MEDS: fentaNYL Citrate Inj 100 MCG/2 ML Ampul IV.PUSH PRN ×7 (15:00→23:01)
[2018-09-16] MEDS: Isosorbide Mononitrate 30 MG ER 24HR Tablet (Imdur) PO SCH (15:19)
[2018-09-16] MEDS: Docusate Sodium 100 MG Capsule PO SCH (15:21)
[2018-09-16] MEDS: amLODIPine 5 MG Tablet PO SCH (15:22)
[2018-09-16 16:11] LABS: INR 1.3 Ratio; Prothrombin Time 13.3 sec (9.8-11.6)
[2018-09-16 16:24] LABS: Carbon Dioxide 23.7 meq/L (21.0-32.0); Potassium 4.8 meq/L (3.5-5.1)
[2018-09-16 17:47] LABS: Hemoglobin 12.4 gm/dL (13.0-17.0); Mean Corpuscular HGB Conc 34.4 % (32.0-36.0); Mean Corpuscular Hemoglobin 32.2 pg (27.0-34.0); Mean Corpuscular Volume 93.6 fL (80.0-100.0); Platelet Count 136 th/mm3 (150-450); Red Blood Count 3.85 mil/mm3 (4.50-5.90); Red Cell Distribution Width 16.6 % (11.6-17.2); White Blood Count 25.7 th/mm3 (4.0-11.0)
--- NOTE | 2018-09-16 18:49 | P.CONCC ---
History of Present Illness Service: Critical care medicine Consult date: 09/16/18 Requesting Physician: Umm Ravi Reason for Consult: perioperative management of hemodynamics Primary Care Provider: Kenrick Wood Chief Complaint: SOB and cough History of Present Illness: This is a 78-year-old male with history of coronary artery disease who presented to the emergency department on 09/14 with shortness of breath and found to have a non-ST elevation myocardial infarction. Left heart catheterization at that time was pertinent for 90% proximal LAD, 95% proximal circumflex, 30% RCA occlusions. He was also found initially to have moderate to severe mitral regurgitation with an ejection fraction of 20% On transthoracic echocardiography. He was taken to the operating room today for off-pump coronary artery bypass grafting x4: BUSH to LAD, vein graft to OM1, vein graft to ramus, vein graft to first diagonal. Intraoperative JARON demonstrated improving mitral valve regurgitation and after this evaluation, decision was made to manage his regurgitant lesion conservatively and not repair the mitral valve intraoperatively. Intraoperative he received 4 units packed red blood cells and 1 unit of platelets. He arrived to the CVICU initially intubated. Chest tubes had approximately 420 mL's of sanguinous output. This is decreased throughout the day in the last hour it was 30 mL's of sanguinous output. He was extubated on pathway. He denies complaints. He is currently on epinephrine at 3 mcg/min and dopamine at 3 mcg/min. Urine output was 50 mL's in the last hour. Review of systems is negative. Lactate is cleared. Critical care medicine is consulted to evaluate manage his hemodynamics. Review of Systems All other systems reviewed negative except as stated in HPI PMFSH - History History Provided By: Patient, Medical Record - Medical History Medical History: Medical History (Last Reviewed 09/16/18 @ 18:43 by Erik Castillo MD) A-fib Achilles tendon injury Diabetes FH: radiation therapy FHx: cholecystectomy GERD (gastroesophageal reflux disease) Glaucoma Gout Hypertension Pacemaker Prostate cancer Stage 4 chronic kidney disease - Surgical History Surgical History: Surgical History (Last Reviewed 09/16/18 @ 18:43 by Erik Castillo MD) H/O cataract removal with insertion of prosthetic lens H/O hernia repair H/O: hemorrhoidectomy Hx of appendectomy - Family History Family History: Family History (Last Updated 09/16/18 @ 18:43 by Erik Castillo MD) Other Family history non-contributory - Social History I have reviewed the patient's Social History: Yes - Tobacco History Second Hand Smoke Exposure: Yes Tobacco Use In Past 30 Days: No Smoking Status: Former smoker - Alcohol History How Often Do You Have a Drink Containing Alcohol: Monthly or less - Substance Use History Substance History: No History of Abuse - Travel History Recent Travel in the [place] Within the Last 8 Weeks: Yes Recent Travel Out of the Country Within the Last 8 Weeks: No - Immunization History Tetanus Immunization: Unsure Hx Influenza Vaccine This Season: Yes Medications and Allergies Active Medications: Active Medications Acetaminophen (Tylenol) 650 mg PO Q4H PRN PRN Reason: Temp > 100.4 Last Admin: 09/15/18 23:43 Dose: 650 mg Acetylcysteine (Mucomyst 10% Neb) 2 ml NEB Q8HR NEB VIN Last Admin: 09/16/18 18:13 Dose: Not Given Al Hydroxide/Mg Hydroxide (Milk Of Magnesia Liq) 30 ml PO Q12H PRN PRN Reason: Mild Constipation Last Admin: 09/14/18 09:50 Dose: 30 ml Albuterol (Duoneb Neb (Prn)) 1 ampul NEB Q4HR NEB PRN PRN Reason: sob Last Admin: 09/15/18 15:34 Dose: 1 ampul Albuterol (Duoneb Neb (Prn)) 1 ampul NEB Q2HR NEB PRN PRN Reason: WHEEZING Albuterol (Duoneb Neb (Vin)) 1 ampul NEB Q6HR NEB VIN Last Admin: 09/16/18 17:23 Dose: 1 ampul Amlodipine Besylate (Norvasc) 5 mg PO DAILY VIN Last Admin: 09/16/18 15:22 Dose: Not Given Aspirin (Aspirin Chew) 81 mg PO DAILY VIN Atorvastatin Calcium (Lipitor) 80 mg PO HS VIN Last Admin: 09/15/18 21:01 Dose: 80 mg Benzonatate (Tessalon Perles) 100 mg PO TID PRN PRN Reason: COUGH Last Admin: 09/15/18 23:47 Dose: 100 mg Bisacodyl (Dulcolax Supp) 10 mg RECTAL DAILY PRN PRN Reason: SEVERE CONSITIPATION Calcium Chloride (Calcium Chloride Inj) 0.5 gm IV.PUSH UNSCH PRN PRN Reason: SEE LABEL COMMENTS Chlorhexidine Gluconate (Hibiclens 4% Topical) 1 applicatio TOPICAL HANGER [facility] Stop: 09/19/18 15:02 Last Admin: 09/15/18 21:00 Dose: 1 applicatio Sodium Chloride 77.5 ml/Papaverine HCl 60 mg/Nitroglycerin 100 mcg/Diltiazem HCl 100 mg 0 ml IRRIGATION HANGER [facility] Stop: 09/19/18 15:02 Last Admin: 09/16/18 09:08 Dose: 1 bag Sodium Chloride 500 ml/ (Cefazolin Sodium 500 mg) 0 ml IRRIGATION HANGER [facility] Stop: 09/19/18 15:04 Last Admin: 09/16/18 09:08 Dose: 1 bag Dextrose (D50w Vial) 50 ml IV.PUSH UNSCH PRN PRN Reason: PER HYPOGLYCEMIA PROTOCOL Docusate Sodium (Colace) 100 mg PO DAILY [facility] Last Admin: 09/16/18 15:21 Dose: Not Given Dronedarone (Multaq) 400 mg PO BID [facility] Last Admin: 09/16/18 15:22 Dose: Not Given Epinephrine (Racepinephrine 2.25% Neb) 0.5 ml NEB DAILY NEB PRN PRN Reason: STRIDOR Fentanyl Citrate (Fentanyl Inj) 25 mcg IV.PUSH Q1H PRN PRN Reason: BREAKTHROUGH PAIN Last Admin: 09/16/18 18:03 Dose: 25 mcg Glucagon (Glucagon Inj) 1 mg OTHER PRN PRN PRN Reason: for Hypoglycemia Protocol Guaifenesin/Codeine Phosphate (Robitussin Ac Liq) 10 ml PO Q6H PRN PRN Reason: IF BENZONATATE IS INEFFECTIV Last Admin: 09/12/18 11:13 Dose: 10 ml Hydralazine HCl (Apresoline Inj) 10 mg IV.PUSH Q4H PRN PRN Reason: SEE LABEL COMMENTS Cefazolin Sodium/Dextrose (Ancef 2 Gm Premix Inj) 2 gm in 50 mls @ 100 mls/hr IV.SIG HANGER [facility] Stop: 09/19/18 15:04 Last Admin: 09/16/18 08:15 Dose: 100 mls/hr Acetaminophen (Ofirmev Inj) 1,000 mg in 100 mls @ 400 mls/hr IV.SIG Q6H [facility] Stop: 09/17/18 08:14 Last Infusion: 09/16/18 15:33 Dose: Infused Albumin Human (Buminate 5% Inj) 250 mls @ 250 mls/hr IV.SIG UNSCH PRN PRN Reason: SEE LABEL COMMENTS Calcium Chloride 1 gm/ Sodium (Chloride) 110 mls @ 100 mls/hr IV.SIG PRN PRN PRN Reason: SEE LABEL COMMENTS Cefazolin Sodium 1 gm/ Sodium (Chloride) 100 mls @ 200 mls/hr IV.SIG Q8H VIN Stop: 09/18/18 04:29 Clevidipine (Cleviprex Inj) 25 mg in 50 mls @ 2 mls/hr IV.CONT TITRATE PRN; Protocol PRN Reason: Per protocol Dexmedetomidine HCl 200 mcg/ (Sodium Chloride) 50 mls @ 4.71 mls/hr IV.CONT TITRATE PRN; Protocol PRN Reason: Per Protocol Last Admin: 09/16/18 14:00 Dose: 0.2 mcg/kg/hr, 4.71 mls/hr Dopamine HCl 800 mg/ Sodium (Chloride) 520 mls @ 11.02 mls/hr IV.CONT CONT PRN ; Protocol PRN Reason: See Protocol Last Titration: 09/16/18 18:31 Dose: 2 mcg/kg/min, 7.34 mls/hr Epinephrine HCl 4 mg/ Sodium (Chloride) 250 mls @ 11.25 mls/hr IV.CONT TITRATE PRN; Protocol PRN Reason: Per Protocol Last Titration: 09/16/18 18:00 Dose: 3 mcg/min, 11.25 mls/hr Insulin Human Regular 100 unit (/ Sodium Chloride) 100 mls @ 3 mls/hr IV.CONT TITRATE PRN; Protocol PRN Reason: See Protocol Last Titration: 09/16/18 16:05 Dose: 3 units/hr, 3 mls/hr Lactated Ringer's (Lr 1000 Ml Inj) 500 mls @ 500 mls/hr IV.SIG .Q1H PRN PRN Reason: SEE LABEL COMMENTS Magnesium Sulfate 2 gm/ Sodium (Chloride) 100 mls @ 50 mls/hr IV.SIG PRN PRN PRN Reason: SEE LABEL COMMENTS Magnesium Sulfate 2 gm/ Sodium (Chloride) 100 mls @ 50 mls/hr IV.SIG PRN PRN PRN Reason: SEE LABEL COMMENTS Isosorbide Mononitrate (Imdur) 30 mg PO DAILY@0700 [facility] Last Admin: 09/16/18 15:19 Dose: Not Given Lactulose (Lactulose Liq) 30 ml PO DAILY PRN PRN Reason: SEVERE CONSITIPATION Latanoprost (Xalatan 0.005% Opth Drops) 1 drop EACH EYE QPM [facility] Last Admin: 09/15/18 17:57 Dose: 1 drop Metoprolol Tartrate (Lopressor) 12.5 mg PO HANGER [facility] Stop: 09/19/18 15:04 Metoprolol Tartrate (Lopressor Inj) 2.5 mg IV.PUSH Q1H PRN PRN Reason: SEE LABEL COMMENTS Ondansetron HCl (Zofran Inj) 4 mg IV.PUSH Q6H PRN PRN Reason: NAUSEA OR VOMITING Oxycodone/Acetaminophen (Percocet 5/325 Mg) 1 tab PO Q3H PRN PRN Reason: PAIN SCALE 1 TO 5 Pantoprazole Sodium (Protonix) 20 mg PO DAILY@06 [facility] Phenylephrine HCl (Neosynephrine Inj) 0.1 mg IV.PUSH UNSCH PRN PRN Reason: SEE LABEL COMMENTS Sennosides (Senokot) 17.2 mg PO Q12H PRN PRN Reason: Moderate Constipation Sodium Bicarbonate (Sodium Bicarbonate 8.4% Inj) 50 meq IV.PUSH UNSCH PRN PRN Reason: SEE LABEL COMMENTS Sodium Bicarbonate (Sodium Bicarbonate 8.4% Inj) 100 meq IV.PUSH UNSCH PRN PRN Reason: SEE LABEL COMMENTS Sodium Chloride (Ns Flush) 2 ml IV.FLUSH BID [facility] Last Admin: 09/16/18 15:22 Dose: Not Given Sodium Chloride (Ns Flush) 2 ml IV.FLUSH PRN PRN PRN Reason: FLUSH AFTER USING IV ACCESS Tamsulosin HCl (Flomax) 0.4 mg PO DAILY [facility] Last Admin: 09/16/18 15:21 Dose: Not Given Temazepam (Restoril) 7.5 mg PO HS PRN PRN Reason: INSOMNIA Last Admin: 09/15/18 23:41 Dose: 7.5 mg Terbutaline Sulfate (Brethine Inj) 1 mg SQ ONCE PRN PRN Reason: Extravasation Terbutaline Sulfate (Brethine Inj) 1 mg SQ UNSCH PRN PRN Reason: For Extravasation Allergies Allergy/AdvReac Type Severity Reaction Status Date / Time No Known Allergies Allergy Verified 09/10/18 04:33 Home Medications Medication Instructions Recorded Confirmed Type allopurinol 100 mg PO BID 09/10/18 09/10/18 History amlodipine 5 mg PO DAILY 09/10/18 09/10/18 History benzonatate 100 mg PO TID PRN 09/10/18 09/10/18 History carvedilol 25 mg PO BID 09/10/18 09/10/18 History codeine-guaifenesin [Robafen AC] 10 ml PO Q4-6H PRN 09/10/18 09/10/18 History docusate sodium 100 mg PO DAILY 09/10/18 09/10/18 History doxycycline hyclate 100 mg PO DAILY 09/10/18 09/10/18 History dronedarone [Multaq] 400 mg PO BID 09/10/18 09/10/18 History indapamide 1.25 mg PO QAM 09/10/18 09/10/18 History insulin aspart U-100 [Novolog 1 sliding scale dose SUBCUT UD 09/10/18 09/10/18 History U-100 Insulin aspart] insulin detemir U-100 [Levemir 32 unit SUBCUT QPM 09/10/18 09/10/18 History U-100 Insulin] latanoprost 1 drp OPHTHALMIC (EYE) QPM 09/10/18 09/10/18 History omeprazole 20 mg PO BID 09/10/18 09/10/18 History prednisone 20 mg PO BID 09/10/18 09/10/18 History sitagliptin [Januvia] 50 mg PO DAILY 09/10/18 09/10/18 History tamsulosin 0.4 mg PO DAILY 09/10/18 09/10/18 History warfarin [Jantoven] 2 mg PO DAILY 09/10/18 09/10/18 History Physical Exam Vital signs: Vital Signs 09/15/18 20:00 09/15/18 20:51 09/15/18 23:57 Temperature 37.1 C Pulse Rate 80 70 Respiratory Rate 20 Blood Pressure 138/70 Pulse Oximetry 95 09/16/18 01:00 09/16/18 02:00 09/16/18 03:00 Temperature Pulse Rate 68 68 68 Respiratory Rate Blood Pressure Pulse Oximetry 09/16/18 04:00 09/16/18 05:00 09/16/18 06:00 Temperature 36.9 C Pulse Rate 70 80 Respiratory Rate 18 Blood Pressure 158/69 H Pulse Oximetry 95 09/16/18 13:45 09/16/18 14:00 09/16/18 14:50 Temperature 36.6 C Pulse Rate 71 Respiratory Rate 19 17 Blood Pressure 107/60 Pulse Oximetry 97 99 95 09/16/18 15:00 09/16/18 15:34 09/16/18 16:00 Temperature 36.4 C Pulse Rate 75 78 Respiratory Rate 17 15 16 Blood Pressure 127/69 119/69 Pulse Oximetry 95 94 L 09/16/18 16:32 09/16/18 17:23 09/16/18 17:50 Temperature Pulse Rate 87 Respiratory Rate 16 20 17 Blood Pressure Pulse Oximetry Intake & Output 09/15/18 09/16/18 09/16/18 18:59 06:59 18:59 Intake Total 940 / 940 3850 / 3850 Output Total 775 / 775 300 / 300 3855 / 3855 Balance 165 / 165 -300 / -300 -5 / -5 Weight 94.2 kg Intake: IV 100 / 100 Ofirmev Inj 1,000 mg In 100 ml 100 / 100 @ 400 mls/hr IV.SIG Q6H VIN Rx# :[id number] Oral 940 / 940 Anesthesia Amount 3000 / 3000 Cell Saver Amount 750 / 750 Output: Urine 775 / 775 300 / 300 Pleural Fluid 1200 / 1200 Estimated Blood Loss 1500 / 1500 Urine Amount (Catheter) 675 / 675 Indwelling Temp Sensing 675 / 675 Catheter Chest Tube Drainage 480 / 480 Pleural/Mediastinal Y Connected 480 / 480 Other: Date of Last Bowel Movement 09/15/18 09/15/18 # Bowel Movements 4 Narrative: GENERAL: Elderly male, lying in bed, in mild distress due to his recent sternotomy HEENT: Normocephalic. Atraumatic. Pupils equal, round, reactive, conjugate. Mucous membranes are moist NECK: Trachea is midline. There is no JVD. Right IJ sheath in place, site clean dry and intact. CHEST: There is a midline sternal wound with dressing intact. 3 chest tubes exit subxiphoid with a moderate amount of sanguinous output. No air leak in the chest tubes. They are to suction. Equal chest rise. Nasal cannula oxygen. CARDIOVASCULAR: Normal rate, regular rhythm. Sinus. Dopamine at 3 mcg/min. Epinephrine at 3 mcg/min. Mean arterial pressure of 76 mmHg. ABDOMEN: Soft, nontender, nondistended. No guarding. MUSCULOSKELETAL: Pulses 2+. No peripheral edema. Left lower cavity wrapped in Bernard wrap. Remedies are warm and adequately perfused. NEUROLOGICAL: RASS 0 to -1. Follows commands in all 4 extremities. No focal deficits. - Urinary Catheter Management Indwelling Temp Sensing Catheter Cath placed during this visit: yes Reason for continuing: Hourly intake/output Insertion date: 09/16/18 Insertion time: 08:00 Assessment and Plan - Assessment and Plan Plan: Assessment: 78-year-old male postop day 0 status post on pump coronary artery bypass grafting x4: BUSH to LAD, vein to OM1, vein to first diagonal, vein to ramus. We will very cautiously wean inotropic therapy. Continue to watch urine output and chest tube output very closely. Keep in ICU. High risk for decompensation. s/p on-pump CABG x 4: BUSH-->LAD, SVG-->OM1, SVG-->RAMUS,SVG-->D1 09/16 Severe systolic dysfunction, EF 20% Moderate mitral regurgitation recent NSTEMI CAD - wean dopamine for goal map > 65 mmhg - slowly wean epinephrine throughout the next 12 hours given myocardial dysfunction - trend CVP - trend lactates - watch uop closely - watch chest tube output - check CBC, coag, fibrinogen now CKD,stage III - watch uop closely - daily bmp - trend cvp to ensure adequate resuscitation will likely need early forced diuresis. Advance diet as tolerated SCDs keep in bed tonight- patient was orthostatic with sitting to the side of the bed. Plan to ambulate and OOB to chair in the morning. Early and aggressive mobilization is important. Critical care medicine will continue to follow while patient remains in the CVICU.
--- NOTE | 2018-09-16 19:14 | P.PNNP ---
Subjective Interval history: Patient seen after the surgery, awake, mild SOB, not in distress. Physical Exam Vital signs: Vital Signs 09/15/18 20:00 09/15/18 20:51 09/15/18 23:57 Temperature 98.7 F Pulse Rate 80 70 Respiratory Rate 20 Blood Pressure 138/70 Pulse Oximetry 95 09/16/18 01:00 09/16/18 02:00 09/16/18 03:00 Temperature Pulse Rate 68 68 68 Respiratory Rate Blood Pressure Pulse Oximetry 09/16/18 04:00 09/16/18 05:00 09/16/18 06:00 Temperature 98.4 F Pulse Rate 70 80 Respiratory Rate 18 Blood Pressure 158/69 H Pulse Oximetry 95 09/16/18 13:45 09/16/18 14:00 09/16/18 14:50 Temperature 97.9 F Pulse Rate 71 Respiratory Rate 19 17 Blood Pressure 107/60 Pulse Oximetry 97 99 95 09/16/18 15:00 09/16/18 15:34 09/16/18 16:00 Temperature 97.6 F Pulse Rate 75 78 Respiratory Rate 17 15 16 Blood Pressure 127/69 119/69 Pulse Oximetry 95 94 L 09/16/18 16:32 09/16/18 17:23 09/16/18 17:50 Temperature Pulse Rate 87 Respiratory Rate 16 20 17 Blood Pressure Pulse Oximetry Intake & Output 09/16/18 09/16/18 09/17/18 06:59 18:59 06:59 Intake Total 3850 / 3850 Output Total 300 / 300 3855 / 3855 Balance -300 / -300 -5 / -5 Weight 94.2 kg Intake: IV 100 / 100 Ofirmev Inj 1,000 mg In 100 ml 100 / 100 @ 400 mls/hr IV.SIG Q6H [facility] Rx# :[id number] Anesthesia Amount 3000 / 3000 Cell Saver Amount 750 / 750 Output: Urine 300 / 300 Pleural Fluid 1200 / 1200 Estimated Blood Loss 1500 / 1500 Urine Amount (Catheter) 675 / 675 Indwelling Temp Sensing 675 / 675 Catheter Chest Tube Drainage 480 / 480 Pleural/Mediastinal Y Connected 480 / 480 Other: Date of Last Bowel Movement 09/15/18 Narrative: GENERAL: Elderly male, lying in bed, in mild distress due to his recent sternotomy HEENT: Normocephalic. Atraumatic. Pupils equal, round, reactive, conjugate. Mucous membranes are moist NECK: Trachea is midline. There is no JVD. Right IJ sheath in place, site clean dry and intact. CHEST: There is a midline sternal wound with dressing intact. 3 chest tubes exit subxiphoid with a moderate amount of sanguinous output. No air leak in the chest tubes. They are to suction. Equal chest rise. Nasal cannula oxygen. CARDIOVASCULAR: Normal rate, regular rhythm. Sinus. Dopamine at 3 mcg/min. Epinephrine at 3 mcg/min. Mean arterial pressure of 76 mmHg. ABDOMEN: Soft, nontender, nondistended. No guarding. MUSCULOSKELETAL: Pulses 2+. No peripheral edema. Left lower cavity wrapped in Bernard wrap. Remedies are warm and adequately perfused. NEUROLOGICAL: RASS 0 to -1. Follows commands in all 4 extremities. No focal deficits. - Urinary Catheter Management Indwelling Temp Sensing Catheter Cath placed during this visit: yes Reason for continuing: Hourly intake/output Insertion date: 09/16/18 Insertion time: 08:00 Assessment and Plan - Assessment (1) Stage 4 chronic kidney disease Code(s): N18.4 - Chronic kidney disease, stage 4 (severe) Status: Acute (2) Non-ST elevation MA (NSTEMI) Code(s): I21.4 - Non-ST elevation (NSTEMI) myocardial infarction Status: Acute (3) Dyspnea Code(s): R06.00 - Dyspnea, unspecified Status: Acute Qualifiers: Dyspnea type: unspecified Qualified Code(s): R06.00 - Dyspnea, unspecified (4) Diabetes mellitus Code(s): E11.9 - Type 2 diabetes mellitus without complications Status: Acute - Plan Patient with stage 4 chronic kidney disease. He has been following with [facility]. As per patient he was told that he has GFR of 16 ml/min. Now he is admitted with chest pain and diagnosed with NSTEMI. Cardiology following. Post Cardiac surgery. Creatinine is better, and now it is 3.4. Follow the urine out put and BMP. BP is stable, urine out put is adequate for now. Use Lasix if needed.
[2018-09-16] MEDS: ceFAZolin Inj 1 GM in Sodium Chlor 0.9% Inj 100 ML IV.SIG SCH (20:50)
[2018-09-16] MEDS: Latanoprost 0.005% Opth Drops 2.5 ML Bottle EACH EYE SCH (20:51)
[2018-09-17] MEDS: fentaNYL Citrate Inj 100 MCG/2 ML Ampul IV.PUSH PRN ×8 (01:03→23:27)
[2018-09-17] MEDS: RESP: Acetylcysteine 10% 4 ML Neb NEB SCH ×2 (03:29→09:45)
[2018-09-17] MEDS: ceFAZolin Inj 1 GM in Sodium Chlor 0.9% Inj 100 ML IV.SIG SCH ×3 (03:55→20:17)
[2018-09-17 04:38] LABS: Hematocrit 33.7 % (39.0-51.0); Hemoglobin 11.5 gm/dL (13.0-17.0); Mean Corpuscular HGB Conc 34.2 % (32.0-36.0); Mean Corpuscular Hemoglobin 32.4 pg (27.0-34.0); Mean Corpuscular Volume 94.6 fL (80.0-100.0); Mean Platelet Volume 8.3 fL (7.0-11.0); Platelet Count 139 th/mm3 (150-450); Red Blood Count 3.56 mil/mm3 (4.50-5.90); Red Cell Distribution Width 16.4 % (11.6-17.2); White Blood Count 28.4 th/mm3 (4.0-11.0)
[2018-09-17 04:45] LABS: INR 1.2 Ratio; Prothrombin Time 12.1 sec (9.8-11.6)
[2018-09-17 05:09] LABS: Calcium 7.9 mg/dL (8.5-10.1); Carbon Dioxide 21.4 meq/L (21.0-32.0); Magnesium 2.9 mg/dL (1.5-2.5)
--- NOTE | 2018-09-17 05:29 | XR ---
EXAM DATE: 09/17/2018 5:25 AM EST AGE/SEX: 78 years / Male INDICATIONS: Post op CABG. CLINICAL DATA: This is the patient's subsequent encounter. Patient reports that signs and symptoms h ave been present for 2 days and indicates a pain score of 8/10. MEDICAL/SURGICAL HISTORY: . A-fib. Achilles tendon injury. Diabetes. Radiation therapy. Cholecy stectomy. GERD. Glaucoma. Gout. Hypertension. Pacemaker. Prostate cancer. Stage 4 chronic kidney dise ase. . Hernia repair. Appendectomy. . COMPARISON: [facility] [place], CHEST 1V SINGLE AP, 09/16/2018. . FINDINGS: A single AP view of the chest demonstrates interval extubation and removal of the nasogastric tube. B ilateral thoracostomy tubes and right-sided central line remain. Left-sided pacing device noted. No p neumothorax. Bibasilar atelectasis is stable. No effusions. Heart is mildly enlarged. Median sternoto my wires noted. CONCLUSION: Interval extubation. Bibasilar atelectasis. Electronically signed by: Milo Gordon MD Board Certified Radiologist 09/17/2018 5:28 AM EST
[2018-09-17] MEDS: Isosorbide Mononitrate 30 MG ER 24HR Tablet (Imdur) PO SCH (06:27)
[2018-09-17] MEDS: Insulin Regular (For Infusion) 100 UNIT in Sodium Chlor 0.9% Inj 99 ML IV.CONT PRN (08:44)
--- NOTE | 2018-09-17 10:45 | P.PNCV ---
- Note CVT: Post Op Day #: 1 Subjective/Hospital Course: A 78-year-old male, visiting from the [facility] here with his who presented to the emergency room with shortness of breath, cough, occasional sputum production greenish color, some congestion. No orthopnea, no lower extremity edema. No nausea or vomiting. No chest pain. He went to the Urgent Care and was prescribed some doxycycline, prednisone and antitussives, but did not feel any better. Started developing right-sided chest discomfort that was sharp, nonradiating, not associated with nausea. He was in a car. He drove for 3 days from the [facility] 08/26/2018 and arrived here on 08/29/2018. They did a complete workup on him and are treating him for bilateral infiltrates. He was also found to have acute kidney failure. He has a history of chronic kidney disease. 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 He also is on Coumadin for intermittent atrial fibrillation. They did a venous Doppler. There was no evidence of DVT. V/Q scan was low probability. He was further worked up. He had a mildly elevated troponin at 2.34. He was ruled in for a non-STEMI. He underwent cardiac catheterization showing 90% stenosis in the LAD, 95% proximal left circumflex, proximal left circumflex was 50, the RCA was 30%. The patient also was found to have moderate to severe mitral regurgitation. Cardiac catheterization revealed an ejection fraction of 45-50%, moderate to severe mitral valve regurgitation, trace tricuspid regurgitation. We were consulted to evaluate for coronary artery bypass grafting and mitral valve repair versus replacement. PAST MEDICAL HISTORY: Includes atrial fibrillation, diabetes mellitus, gastroesophageal reflux disease, glaucoma, gout, hypertension, prostate cancer, stage IV kidney disease, history of multiple myeloma where he was being worked up to have a bone biopsy. 09/14 on 3 liter nasal cannula feels a little better will check PA & lateral CXR today , also repeat labs pending pt on nonoliguric, no chest pain during the night 09/15 worsening renal indices Nephrology following , for surgery in am placement of perm cath as per Nephro decision no chest pain last night 09/17/18 Doing well s/p CABG x 4. Renal function is stable. Off pressors.~3kg up from preop weight. Objective: Vital Signs - 24 hr 09/16/18 13:45 09/16/18 14:00 09/16/18 14:50 Temperature 97.9 F Pulse Rate 71 Respiratory Rate 19 17 Blood Pressure 107/60 Pulse Oximetry 97 99 95 09/16/18 15:00 09/16/18 15:34 09/16/18 16:00 Temperature 97.6 F Pulse Rate 75 78 Respiratory Rate 17 15 16 Blood Pressure 127/69 119/69 Pulse Oximetry 95 94 L 09/16/18 16:32 09/16/18 17:23 09/16/18 17:50 Temperature Pulse Rate 87 Respiratory Rate 16 20 17 Blood Pressure Pulse Oximetry 09/16/18 19:00 09/16/18 21:10 09/16/18 23:00 Temperature 97.7 F Pulse Rate 87 90 86 Respiratory Rate 18 22 Blood Pressure 116/67 Pulse Oximetry 95 93 L 95 09/17/18 00:00 09/17/18 03:00 09/17/18 03:29 Temperature 98 F 98.4 F Pulse Rate 89 79 85 Respiratory Rate 16 20 22 Blood Pressure 120/67 133/71 Pulse Oximetry 94 L 95 09/17/18 07:00 09/17/18 08:49 09/17/18 09:46 Temperature 97.6 F Pulse Rate 88 80 Respiratory Rate 15 15 18 Blood Pressure 119/70 Pulse Oximetry 94 L 95 Labs: Laboratory Results - last 12 hr 09/17/18 09/17/18 09/17/18 00:08 02:00 04:00 WBC RBC Hgb Hct MCV MCH MCHC RDW Plt Count MPV PT 12.1 H INR 1.2 Sodium Potassium Chloride Carbon Dioxide Anion Gap BUN Creatinine Estimated GFR POC Glucose 89 129 H Random Glucose Calcium Magnesium 09/17/18 09/17/18 09/17/18 04:00 04:00 06:18 WBC 28.4 H RBC 3.56 L Hgb 11.5 L Hct 33.7 L MCV 94.6 MCH 32.4 MCHC 34.2 RDW 16.4 Plt Count 139 L MPV 8.3 PT INR Sodium 141 Potassium 4.0 D Chloride 107 Carbon Dioxide 21.4 Anion Gap 13 BUN 78 H Creatinine 3.55 H Estimated GFR 17 L POC Glucose 172 H Random Glucose 111 H Calcium 7.9 L Magnesium 2.9 H 09/17/18 09/17/18 09/17/18 07:27 08:36 09:06 WBC RBC Hgb Hct MCV MCH MCHC RDW Plt Count MPV PT INR Sodium Potassium Chloride Carbon Dioxide Anion Gap BUN Creatinine Estimated GFR POC Glucose 176 H 155 H 124 H Random Glucose Calcium Magnesium 09/17/18 10:14 WBC RBC Hgb Hct MCV MCH MCHC RDW Plt Count MPV PT INR Sodium Potassium Chloride Carbon Dioxide Anion Gap BUN Creatinine Estimated GFR POC Glucose 99 Random Glucose Calcium Magnesium Result Diagrams: 09/17/18 04:00 09/17/18 04:00 Imaging: Pulmonary Perfusion Imaging 09/10/18 00:00 CONCLUSION: 1. Low probability pulmonary embolism. Venous Doppler Study 09/10/18 00:00 CONCLUSION: 1. The study is negative for bilateral lower extremity deep venous thrombosis. Abdomen/Bladder Ultrasound 09/11/18 00:00 CONCLUSION: 1. Right renal cyst. 2. Kidneys otherwise appear unremarkable. Carotid Doppler Study 09/13/18 15:02 CONCLUSION: 1. Right Internal Carotid Artery: Findings indicate <50% stenosis. 2. Left Internal Carotid Artery: Findings indicate <50% stenosis. Lower Extremity Ultrasound 09/13/18 15:02 CONCLUSION: 1. Patent lower extremity veins with venous mapping measurements, as above. Chest X-Ray 09/17/18 05:00 CONCLUSION: Interval extubation. Bibasilar atelectasis. Cardiovascular: RRR Pulmonary: Few crackles bilat GI/: NABS, NT Incision: dry and intact CT: ~480ml since OR Continue chest tubes to water seal Continue CVICU today - discussed with Dr. Hutchison Advance diet monitor urine output closely Out of bed, ambulate Start beta mae
[2018-09-17] MEDS: Docusate Sodium 100 MG Capsule PO SCH (11:34)
[2018-09-17] MEDS: amLODIPine 5 MG Tablet PO SCH (11:34)
[2018-09-17] MEDS ORDERED: Amiodarone Inj 150 MG in Dextrose 5% in Water Inj 97 ML IV.SIG ONE ×2 (13:12)
--- NOTE | 2018-09-17 17:05 | P.PNNP ---
Subjective Interval history: Patient is alert, has mild SOB, taking some liquids. Physical Exam Vital signs: Vital Signs 09/16/18 17:23 09/16/18 17:50 09/16/18 19:00 Temperature 97.7 F Pulse Rate 87 87 Respiratory Rate 20 17 18 Blood Pressure 116/67 Pulse Oximetry 95 09/16/18 21:10 09/16/18 23:00 09/17/18 00:00 Temperature 98 F Pulse Rate 90 86 89 Respiratory Rate 22 16 Blood Pressure 120/67 Pulse Oximetry 93 L 95 94 L 09/17/18 03:00 09/17/18 03:29 09/17/18 07:00 Temperature 98.4 F 97.6 F Pulse Rate 79 85 88 Respiratory Rate 20 22 15 Blood Pressure 133/71 119/70 Pulse Oximetry 95 94 L 09/17/18 08:49 09/17/18 09:46 09/17/18 11:00 Temperature 99 F Pulse Rate 80 88 Respiratory Rate 15 18 15 Blood Pressure 114/65 Pulse Oximetry 95 96 09/17/18 15:00 09/17/18 15:36 Temperature 97.5 F L Pulse Rate 99 H Respiratory Rate 16 13 Blood Pressure 108/51 L Pulse Oximetry 93 L Intake & Output 09/16/18 09/17/18 09/17/18 18:59 06:59 18:59 Intake Total 3850 / 3850 1160 / 1160 400 / 400 Output Total 3855 / 3855 645 / 645 Balance -5 / -5 515 / 515 400 / 400 Weight 100.5 kg Intake: IV 100 / 100 200 / 200 400 / 400 NovoLIN R (IV Infusion) 100 100 / 100 UNIT In NS Inj 99 ML @ 3 UNITS/ HR 3 mls/hr IV.CONT TITRATE PRN Rx#:[id number] Ofirmev Inj 1,000 mg In 100 ml 100 / 100 100 / 100 @ 400 mls/hr IV.SIG Q6H [facility] Rx# :[id number] Cordarone Inj 150 MG In D5W Inj 100 / 100 97 ML @ 100 mls/hr IV.SIG ONCE ONE Rx#:[id number] Ancef Inj 1 GM In NS Inj 100 ML 200 / 200 100 / 100 @ 200 mls/hr IV.SIG Q8H [facility] Rx #:[id number] Oral 960 / 960 Anesthesia Amount 3000 / 3000 Cell Saver Amount 750 / 750 Output: Pleural Fluid 1200 / 1200 Estimated Blood Loss 1500 / 1500 Urine Amount (Catheter) 675 / 675 645 / 645 Indwelling Temp Sensing 675 / 675 645 / 645 Catheter Chest Tube Drainage 480 / 480 Pleural/Mediastinal Y Connected 480 / 480 Other: # Bowel Movements 0 Narrative: GENERAL: Well-nourished, well-developed patient. SKIN: Warm and dry. HEAD: Normocephalic. EYES: No scleral icterus. No injection or drainage. NECK: Supple, trachea midline. No JVD or lymphadenopathy. CARDIOVASCULAR: Regular rate and rhythm without murmurs, surgical dressing in place chest tube in place RESPIRATORY: Breath sounds equal bilaterally. No accessory muscle use. GASTROINTESTINAL: Abdomen soft, non-tender, nondistended. EXTREMITIES: Mild edema NEUROLOGICAL: Awake, alert, and oriented x 3. Non-focal. - Urinary Catheter Management Indwelling Temp Sensing Catheter Cath placed during this visit: yes, but has since been removed by the nurse Reason for continuing: Not indwelling catheter Insertion date: 09/16/18 Insertion time: 08:00 Removal date: 09/17/18 Removal time: 06:00 Assessment and Plan - Assessment (1) Stage 4 chronic kidney disease Code(s): N18.4 - Chronic kidney disease, stage 4 (severe) Status: Acute (2) Non-ST elevation IA (NSTEMI) Code(s): I21.4 - Non-ST elevation (NSTEMI) myocardial infarction Status: Acute (3) Dyspnea Code(s): R06.00 - Dyspnea, unspecified Status: Acute Qualifiers: Dyspnea type: unspecified Qualified Code(s): R06.00 - Dyspnea, unspecified (4) Diabetes mellitus Code(s): E11.9 - Type 2 diabetes mellitus without complications Status: Acute Qualifiers: Diabetes mellitus type: type 2 - Plan Patient with stage 4 chronic kidney disease. He has been following with Pediatric Nephrologist. As per patient he was told that he has GFR of 16 ml/min. Now he is admitted with chest pain and diagnosed with NSTEMI. Cardiology following. Post Cardiac surgery. Creatinine is stable at 3.4-3.5. BP is stable, urine out put is adequate for now. No urgent need for Dialysis. CT removal as per Cardiac surgery. Follow the urine out put and BMP.
[2018-09-17] MEDS ORDERED: Dextrose 50% in Water 50 ML Vial IV.PUSH PRN (17:12)
[2018-09-17] MEDS: Latanoprost 0.005% Opth Drops 2.5 ML Bottle EACH EYE SCH (17:38)
[2018-09-17] MEDS: Sod Chloride 0.9% Inj 1,000 ML IV.CONT SCH (17:43)
[2018-09-17] MEDS: Insulin NovoLOG Aspart Correctional Sugar Inj SQ SCH ×2 (17:43→22:16)
--- NOTE | 2018-09-17 19:14 | P.PNCC ---
Subjective Subjective Remarks/Hospital Course: 09/16: This is a 78-year-old male with history of coronary artery disease who presented to the emergency department on 09/14 with shortness of breath and found to have a non-ST elevation myocardial infarction. Left heart catheterization at that time was pertinent for 90% proximal LAD, 95% proximal circumflex, 30% RCA occlusions. He was also found initially to have moderate to severe mitral regurgitation with an ejection fraction of 20% On transthoracic echocardiography. He was taken to the operating room today for off-pump coronary artery bypass grafting x4: BUSH to LAD, vein graft to OM1, vein graft to ramus, vein graft to first diagonal. Intraoperative JARON demonstrated improving mitral valve regurgitation and after this evaluation, decision was made to manage his regurgitant lesion conservatively and not repair the mitral valve intraoperatively. Intraoperative he received 4 units packed red blood cells and 1 unit of platelets. He arrived to the CVICU initially intubated. Chest tubes had approximately 420 mL's of sanguinous output. This is decreased throughout the day in the last hour it was 30 mL's of sanguinous output. He was extubated on pathway. He denies complaints. He is currently on epinephrine at 3 mcg/min and dopamine at 3 mcg/min. Urine output was 50 mL's in the last hour. Review of systems is negative. Lactate is cleared. Critical care medicine is consulted to evaluate manage his hemodynamics. 09/17: Resting comfortably on nasal cannula. Borderline urine output. Went into A. fib earlier for which she was placed on amiodarone gtt. and is currently in sinus rhythm. Off all pressors. Objective Vital Signs / I&O: Vital Signs 09/16/18 21:10 09/16/18 23:00 09/17/18 00:00 Temperature 98 F Pulse Rate 90 86 89 Respiratory Rate 22 16 Blood Pressure 120/67 Pulse Oximetry 93 L 95 94 L 09/17/18 03:00 09/17/18 03:29 09/17/18 07:00 Temperature 98.4 F 97.6 F Pulse Rate 79 85 88 Respiratory Rate 20 22 15 Blood Pressure 133/71 119/70 Pulse Oximetry 95 94 L 09/17/18 08:49 09/17/18 09:46 09/17/18 11:00 Temperature 99 F Pulse Rate 80 88 Respiratory Rate 15 18 15 Blood Pressure 114/65 Pulse Oximetry 95 96 02/22/19 15:00 09/17/18 15:36 Temperature 97.5 F L Pulse Rate 99 H Respiratory Rate 16 13 Blood Pressure 108/51 L Pulse Oximetry 93 L Intake & Output 09/17/18 09/17/18 09/18/18 06:59 18:59 06:59 Intake Total 1160 / 1160 1122 / 1122 Output Total 645 / 645 330 / 330 Balance 515 / 515 792 / 792 Weight 100.5 kg Intake: IV 200 / 200 522 / 522 Cordarone Inj 450 MG In D5W Inj 86 / 86 241 ML @ 1 MG/MIN 33.33 mls/hr IV.CONT TITRATE PRN Rx#: [id number] NovoLIN R (IV Infusion) 100 136 / 136 UNIT In NS Inj 99 ML @ 3 UNITS/ HR 3 mls/hr IV.CONT TITRATE PRN Rx#:[id number] Ofirmev Inj 1,000 mg In 100 ml 100 / 100 @ 400 mls/hr IV.SIG Q6H [facility] Rx# :[id number] Cordarone Inj 150 MG In D5W Inj 100 / 100 97 ML @ 100 mls/hr IV.SIG ONCE ONE Rx#:[id number] Ancef Inj 1 GM In NS Inj 100 ML 200 / 200 100 / 100 @ 200 mls/hr IV.SIG Q8H [facility] Rx #:[id number] Oral 960 / 960 600 / 600 Output: Urine 250 / 250 Urine Amount (Catheter) 645 / 645 Indwelling Temp Sensing 645 / 645 Catheter Chest Tube Drainage 80 / 80 Pleural/Mediastinal Y Connected 80 / 80 Other: # Bowel Movements 0 0 Result Diagrams: 09/17/18 04:00 09/17/18 04:00 Objective Remarks: GENERAL: Elderly male, lying in bed, in no acute distress HEENT: Normocephalic. Atraumatic. Pupils equal, round, reactive, conjugate. Mucous membranes are moist NECK: Trachea is midline. There is no JVD. Right IJ sheath in place, site clean dry and intact. CHEST: There is a midline sternal wound with dressing intact. 3 chest tubes exit subxiphoid with a minimal amount of sanguinous output. No air leak in the chest tubes. They are to suction. Equal chest rise. Nasal cannula oxygen. CARDIOVASCULAR: Normal rate, regular rhythm. Sinus. Amiodarone gtt. ABDOMEN: Soft, nontender, nondistended. No guarding. MUSCULOSKELETAL: Pulses 2+. No peripheral edema. Left lower cavity wrapped in Bernard wrap. Remedies are warm and adequately perfused. NEUROLOGICAL: RASS 0 to -1. Follows commands in all 4 extremities. No focal deficits. Assessment and Plan - Assessment and Plan Plan: Assessment: 78-year-old male postop day 0 status post on pump coronary artery bypass grafting x4: BUSH to LAD, vein to OM1, vein to first diagonal, vein to ramus. We will very cautiously wean inotropic therapy. Continue to watch urine output and chest tube output very closely. Keep in ICU. High risk for decompensation. s/p on-pump CABG x 4: BUSH-->LAD, SVG-->OM1, SVG-->RAMUS,SVG-->D1 09/16 Severe systolic dysfunction, EF 20% Moderate mitral regurgitation recent NSTEMI CAD -Off pressors -Continue amiodarone gtt. for A. fib - watch uop closely - watch chest tube output -Follow CBC CKD,stage III - watch uop closely - daily bmp -IV fluids being initiated per nephrology -Durán catheterization if patient has not voided with fluids to follow urine output closely. Advance diet as tolerated SCDs Critical care medicine will continue to follow.
[2018-09-18] MEDS: Insulin NovoLOG Aspart Correctional Sugar Inj SQ SCH ×6 (02:20→21:31)
[2018-09-18] MEDS: fentaNYL Citrate Inj 100 MCG/2 ML Ampul IV.PUSH PRN ×2 (03:13→05:56)
[2018-09-18] MEDS: ceFAZolin Inj 1 GM in Sodium Chlor 0.9% Inj 100 ML IV.SIG SCH (03:16)
[2018-09-18 04:43] LABS: Hematocrit 29.6 % (39.0-51.0); Hemoglobin 10.1 gm/dL (13.0-17.0); Mean Corpuscular HGB Conc 34.2 % (32.0-36.0); Mean Corpuscular Hemoglobin 32.6 pg (27.0-34.0); Mean Corpuscular Volume 95.2 fL (80.0-100.0); Mean Platelet Volume 8.5 fL (7.0-11.0); Platelet Count 130 th/mm3 (150-450); Red Cell Distribution Width 16.9 % (11.6-17.2); White Blood Count 22.2 th/mm3 (4.0-11.0)
[2018-09-18 05:00] LABS: Calcium 7.4 mg/dL (8.5-10.1); Carbon Dioxide 23.6 meq/L (21.0-32.0)
[2018-09-18 05:12] LABS: Albumin 2.3 g/dL (3.4-5.0); Calcium-Albumin Corrected 8.8 mg/dL (8.5-10.1)
[2018-09-18] MEDS: Sod Chloride 0.9% Inj 1,000 ML IV.CONT SCH (05:55)
--- NOTE | 2018-09-18 07:08 | P.PNCC ---
Subjective Subjective Remarks/Hospital Course: 09/16: This is a 78-year-old male with history of coronary artery disease who presented to the emergency department on 09/14 with shortness of breath and found to have a non-ST elevation myocardial infarction. Left heart catheterization at that time was pertinent for 90% proximal LAD, 95% proximal circumflex, 30% RCA occlusions. He was also found initially to have moderate to severe mitral regurgitation with an ejection fraction of 20% On transthoracic echocardiography. He was taken to the operating room today for off-pump coronary artery bypass grafting x4: BUSH to LAD, vein graft to OM1, vein graft to ramus, vein graft to first diagonal. Intraoperative JARON demonstrated improving mitral valve regurgitation and after this evaluation, decision was made to manage his regurgitant lesion conservatively and not repair the mitral valve intraoperatively. Intraoperative he received 4 units packed red blood cells and 1 unit of platelets. He arrived to the CVICU initially intubated. Chest tubes had approximately 420 mL's of sanguinous output. This is decreased throughout the day in the last hour it was 30 mL's of sanguinous output. He was extubated on pathway. He denies complaints. He is currently on epinephrine at 3 mcg/min and dopamine at 3 mcg/min. Urine output was 50 mL's in the last hour. Review of systems is negative. Lactate is cleared. Critical care medicine is consulted to evaluate manage his hemodynamics. 09/17: Resting comfortably on nasal cannula. Borderline urine output. Went into A. fib earlier for which she was placed on amiodarone gtt. and is currently in sinus rhythm. Off all pressors. 09/18: Doing well, sitting in the chair on nasal cannula, off pressors, hemodynamically stable. Objective Vital Signs / I&O: Vital Signs 09/17/18 08:49 09/17/18 09:46 09/17/18 11:00 Temperature 99 F Pulse Rate 80 88 Respiratory Rate 15 18 15 Blood Pressure 114/65 Pulse Oximetry 95 96 09/17/18 15:00 09/17/18 15:36 09/17/18 19:00 Temperature 97.5 F L 98.4 F Pulse Rate 99 H 81 Respiratory Rate 16 13 20 Blood Pressure 108/51 L 118/64 Pulse Oximetry 93 L 93 L 09/17/18 21:05 09/17/18 21:10 09/17/18 23:00 Temperature 98.6 F Pulse Rate 84 83 Respiratory Rate 20 16 Blood Pressure 127/71 Pulse Oximetry 95 95 09/18/18 03:00 09/18/18 03:33 Temperature 98.4 F Pulse Rate 84 77 Respiratory Rate 16 20 Blood Pressure 118/69 Pulse Oximetry 95 Intake & Output 09/17/18 09/18/18 09/18/18 18:59 06:59 18:59 Intake Total 1122 / 1122 2704 / 2704 Output Total 330 / 330 350 / 350 Balance 792 / 792 2354 / 2354 Weight 101.5 kg Intake: IV 522 / 522 1264 / 1264 Cordarone Inj 450 MG In D5W Inj 86 / 86 164 / 164 241 ML @ 1 MG/MIN 33.33 mls/hr IV.CONT TITRATE PRN Rx#: [id number] NovoLIN R (IV Infusion) 100 136 / 136 UNIT In NS Inj 99 ML @ 3 UNITS/ HR 3 mls/hr IV.CONT TITRATE PRN Rx#:[id number] NS Inj 1,000 ML @ 84 mls/hr IV. 1000 / 1000 CONT .[id number] CORINE Rx#:[id number] Ofirmev Inj 1,000 mg In 100 ml 100 / 100 @ 400 mls/hr IV.SIG Q6H [facility] Rx# :[id number] Cordarone Inj 150 MG In D5W Inj 100 / 100 97 ML @ 100 mls/hr IV.SIG ONCE ONE Rx#:[id number] Ancef Inj 1 GM In NS Inj 100 ML 100 / 100 100 / 100 @ 200 mls/hr IV.SIG Q8H CORINE Rx #:[id number] Oral 600 / 600 1440 / 1440 Output: Urine 250 / 250 350 / 350 Chest Tube Drainage 80 / 80 Pleural/Mediastinal Y Connected 80 / 80 Other: # Bowel Movements 0 0 Result Diagrams: 09/18/18 04:20 09/18/18 04:20 Objective Remarks: GENERAL: Elderly male, sitting in a chair, in no acute distress HEENT: Normocephalic. Atraumatic. Pupils equal, round, reactive, conjugate. Mucous membranes are moist NECK: Trachea is midline. There is no JVD. Right IJ sheath in place, site clean dry and intact. CHEST: There is a midline sternal wound with dressing intact. Equal chest rise. Nasal cannula oxygen. CARDIOVASCULAR: Normal rate, regular rhythm. Sinus. Amiodarone gtt. ABDOMEN: Soft, nontender, nondistended. No guarding. MUSCULOSKELETAL: Pulses 2+. No peripheral edema. Left lower cavity wrapped in Bernard wrap. Remedies are warm and adequately perfused. NEUROLOGICAL: RASS 0 to -1. Follows commands in all 4 extremities. No focal deficits. Assessment and Plan - Assessment and Plan Plan: Assessment: 78-year-old male postop day 0 status post on pump coronary artery bypass grafting x4: BUSH to LAD, vein to OM1, vein to first diagonal, vein to ramus. We will very cautiously wean inotropic therapy. Continue to watch urine output and chest tube output very closely. Keep in ICU. High risk for decompensation. s/p on-pump CABG x 4: BUSH-->LAD, SVG-->OM1, SVG-->RAMUS,SVG-->D1 09/16 Severe systolic dysfunction, EF 20% Moderate mitral regurgitation recent NSTEMI CAD -Off pressors -Wean amiodarone gtt. for A. fib per CV surgeon -Continue telemetry -Monitor chest tube output -Follow CBC -trending down CKD,stage III -Monitor uop closely - daily bmp -IV fluids being initiated per nephrology -Durán catheterization if patient has not voided with fluids to follow urine output closely. -Nephrology consult appreciated Advance diet as tolerated SCDs Patient has been hemodynamically stable not on pressors. He is comfortable on nasal cannula in no acute distress. Critical care medicine will sign off. Please reconsult us if needed. Thank you very much for allowing us to participate in care of this very pleasant gentleman. Level 3
[2018-09-18] MEDS: amLODIPine 5 MG Tablet PO SCH (08:53)
[2018-09-18] MEDS: Docusate Sodium 100 MG Capsule PO SCH (08:53)
[2018-09-18] MEDS ORDERED: Sod Phosphate/Sod Biphosphate (Adult) Enema 133 ML Bottle RECTAL PRN (09:23)
--- NOTE | 2018-09-18 09:23 | P.PNCV ---
- Note Subjective/Hospital Course: A 78-year-old male, visiting from the [facility] here with his who presented to the emergency room with shortness of breath, cough, occasional sputum production greenish color, some congestion. No orthopnea, no lower extremity edema. No nausea or vomiting. No chest pain. He went to the Urgent Care and was prescribed some doxycycline, prednisone and antitussives, but did not feel any better. Started developing right-sided chest discomfort that was sharp, nonradiating, not associated with nausea. He was in a car. He drove for 3 days from the [place] area 08/26/2018 and arrived here on 08/29/2018. They did a complete workup on him and are treating him for bilateral infiltrates. He was also found to have acute kidney failure. He has a history of chronic kidney disease. 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 He also is on Coumadin for intermittent atrial fibrillation. They did a venous Doppler. There was no evidence of DVT. V/Q scan was low probability. He was further worked up. He had a mildly elevated troponin at 2.34. He was ruled in for a non-STEMI. He underwent cardiac catheterization showing 90% stenosis in the LAD, 95% proximal left circumflex, proximal left circumflex was 50, the RCA was 30%. The patient also was found to have moderate to severe mitral regurgitation. Cardiac catheterization revealed an ejection fraction of 45-50%, moderate to severe mitral valve regurgitation, trace tricuspid regurgitation. We were consulted to evaluate for coronary artery bypass grafting and mitral valve repair versus replacement. PAST MEDICAL HISTORY: Includes atrial fibrillation, diabetes mellitus, gastroesophageal reflux disease, glaucoma, gout, hypertension, prostate cancer, stage IV kidney disease, history of multiple myeloma where he was being worked up to have a bone biopsy. 09/14 on 3 liter nasal cannula feels a little better will check PA & lateral CXR today , also repeat labs pending pt on nonoliguric, no chest pain during the night 09/15 worsening renal indices Nephrology following , for surgery in am placement of perm cath as per Nephro decision no chest pain last night 09/17/18 Doing well s/p CABG x 4. Renal function is stable. Off pressors.~3kg up from preop weight. 09/18 Clinically and hemodynamically stable Normal sinus rhythm on IV amiodarone Change IV to p.o. amiodarone Transfer to CPCU Maintain chest tubes for now Objective: Vital Signs - 24 hr 09/17/18 09:46 09/17/18 11:00 09/17/18 15:00 Temperature 99 F 97.5 F L Pulse Rate 80 88 99 H Respiratory Rate 18 15 16 Blood Pressure 114/65 108/51 L Pulse Oximetry 95 96 93 L 09/17/18 15:36 09/17/18 19:00 09/17/18 21:05 Temperature 98.4 F Pulse Rate 81 84 Respiratory Rate 13 20 20 Blood Pressure 118/64 Pulse Oximetry 93 L 09/17/18 21:10 09/17/18 23:00 09/18/18 03:00 Temperature 98.6 F 98.4 F Pulse Rate 83 84 Respiratory Rate 16 16 Blood Pressure 127/71 118/69 Pulse Oximetry 95 95 95 09/18/18 03:33 09/18/18 07:30 09/18/18 07:32 Temperature Pulse Rate 77 90 Respiratory Rate 20 Blood Pressure Pulse Oximetry 95 09/18/18 07:34 Temperature 98.6 F Pulse Rate 90 Respiratory Rate 16 Blood Pressure 110/67 Pulse Oximetry 95 Labs: Laboratory Results - last 12 hr 09/18/18 09/18/18 09/18/18 03:13 04:20 04:20 WBC 22.2 H RBC 3.10 L Hgb 10.1 L Hct 29.6 L MCV 95.2 MCH 32.6 MCHC 34.2 RDW 16.9 Plt Count 130 L MPV 8.5 Sodium 136 Potassium 4.0 Chloride 102 Carbon Dioxide 23.6 Anion Gap 10 BUN 87 H Creatinine 3.96 H Estimated GFR 15 L POC Glucose 180 H Random Glucose 183 H Calcium 7.4 L* Calcium Adj for Albumin 8.8 Albumin 2.3 L 09/18/18 06:16 WBC RBC Hgb Hct MCV MCH MCHC RDW Plt Count MPV Sodium Potassium Chloride Carbon Dioxide Anion Gap BUN Creatinine Estimated GFR POC Glucose 168 H Random Glucose Calcium Calcium Adj for Albumin Albumin Result Diagrams: 09/18/18 04:20 09/18/18 04:20
--- NOTE | 2018-09-18 10:49 | P.PNNP ---
Subjective Interval history: Status post surgery CABG X4 VESSEL, patient resting comfortably chest tube in place Physical Exam Vital signs: Vital Signs 09/17/18 11:00 09/17/18 15:00 09/17/18 15:36 Temperature 99 F 97.5 F L Pulse Rate 88 99 H Respiratory Rate 15 16 13 Blood Pressure 114/65 108/51 L Pulse Oximetry 96 93 L 09/17/18 19:00 09/17/18 21:05 09/17/18 21:10 Temperature 98.4 F Pulse Rate 81 84 Respiratory Rate 20 20 Blood Pressure 118/64 Pulse Oximetry 93 L 95 09/17/18 23:00 09/18/18 03:00 09/18/18 03:33 Temperature 98.6 F 98.4 F Pulse Rate 83 84 77 Respiratory Rate 16 16 20 Blood Pressure 127/71 118/69 Pulse Oximetry 95 95 09/18/18 07:30 09/18/18 07:32 09/18/18 07:34 Temperature 98.6 F Pulse Rate 90 90 Respiratory Rate 16 Blood Pressure 110/67 Pulse Oximetry 95 95 09/18/18 10:01 09/18/18 10:32 Temperature 99 F Pulse Rate 85 119 H Respiratory Rate 18 16 Blood Pressure 152/86 H Pulse Oximetry 94 L Intake & Output 09/17/18 09/18/18 09/18/18 18:59 06:59 18:59 Intake Total 1122 / 1122 2704 / 2704 Output Total 330 / 330 350 / 350 Balance 792 / 792 2354 / 2354 Weight 101.5 kg Intake: IV 522 / 522 1264 / 1264 Cordarone Inj 450 MG In D5W Inj 86 / 86 164 / 164 241 ML @ 1 MG/MIN 33.33 mls/hr IV.CONT TITRATE PRN Rx#: [id number] NovoLIN R (IV Infusion) 100 136 / 136 UNIT In NS Inj 99 ML @ 3 UNITS/ HR 3 mls/hr IV.CONT TITRATE PRN Rx#:[id number] NS Inj 1,000 ML @ 84 mls/hr IV. 1000 / 1000 CONT .[id number] CORINE Rx#:[id number] Ofirmev Inj 1,000 mg In 100 ml 100 / 100 @ 400 mls/hr IV.SIG Q6H CORINE Rx# :[id number] Cordarone Inj 150 MG In D5W Inj 100 / 100 97 ML @ 100 mls/hr IV.SIG ONCE ONE Rx#:[id number] Ancef Inj 1 GM In NS Inj 100 ML 100 / 100 100 / 100 @ 200 mls/hr IV.SIG Q8H CORINE Rx #:[id number] Oral 600 / 600 1440 / 1440 Output: Urine 250 / 250 350 / 350 Chest Tube Drainage 80 / 80 Pleural/Mediastinal Y Connected 80 / 80 Other: # Bowel Movements 0 0 Narrative: GENERAL: Well-nourished, well-developed patient. SKIN: Warm and dry. HEAD: Normocephalic. EYES: No scleral icterus. No injection or drainage. NECK: Supple, trachea midline. No JVD or lymphadenopathy. CARDIOVASCULAR: Regular rate and rhythm without murmurs, surgical dressing in place chest tube in place RESPIRATORY: Breath sounds equal bilaterally. No accessory muscle use. GASTROINTESTINAL: Abdomen soft, non-tender, nondistended. EXTREMITIES: Mild edema NEUROLOGICAL: Awake, alert, and oriented x 3. Non-focal. - Urinary Catheter Management Indwelling Temp Sensing Catheter Cath placed during this visit: yes, but has since been removed by the nurse Reason for continuing: Not indwelling catheter Insertion date: 09/16/18 Insertion time: 08:00 Removal date: 09/17/18 Removal time: 06:00 Assessment and Plan - Assessment (1) Stage 4 chronic kidney disease Code(s): N18.4 - Chronic kidney disease, stage 4 (severe) Status: Acute (2) Non-ST elevation PR (NSTEMI) Code(s): I21.4 - Non-ST elevation (NSTEMI) myocardial infarction Status: Acute (3) Dyspnea Code(s): R06.00 - Dyspnea, unspecified Status: Acute Qualifiers: Dyspnea type: unspecified Qualified Code(s): R06.00 - Dyspnea, unspecified (4) Diabetes mellitus Code(s): E11.9 - Type 2 diabetes mellitus without complications Status: Acute - Plan Patient with stage 4 chronic kidney disease. 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 As per patient he was told that he has GFR of 16 ml/min. Now he is admitted with chest pain and diagnosed with NSTEMI. Cardiology following. Post Cardiac surgery. Creatinine remains elevated stage IV chronic kidney disease GFR 15 is nonoliguric Continue to monitor encourage water intake Weaned off vasopressors Transferred to floor
[2018-09-18] MEDS: Amiodarone 200 MG Tablet PO SCH ×3 (12:03→21:31)
[2018-09-18] MEDS: Latanoprost 0.005% Opth Drops 2.5 ML Bottle EACH EYE SCH (18:01)
[2018-09-18] MEDS: Metoprolol Tartrate 25 MG Tablet PO SCH ×2 (19:56→21:31)
--- NOTE | 2018-09-18 20:39 | ECG ---
Date Performed: 09/18/2018 Time Performed: 18:51:36 PTAGE: 78 years EKG: Sinus rhythm with PACs and PVCs Right axis deviation Possible anterolateral infarct - age undetermined Poor R wav e progression Inferior ST-T changes are nonspecific Generalized low QRS voltages Abnormal ECG PREVIOUS TRACING : 09/17/2018 12.46 Since the previous tracing, no significant change noted DOCTOR: Jerry Evans Interpretating Date/Time 09/18/2018 20:37:58
--- NOTE | 2018-09-18 21:25 | ECG ---
Date Performed: 09/17/2018 Time Performed: 12:46:10 PTAGE: 78 years EKG: Atrial fibrillation with rapid ventricular response with PVC(s) Indeterminate axis Abnormal R wave progression Abnormal ECG Compared to PREVIOUS TRACING , a fib and abnl R wave progression present DOCTOR: Jerry Evans Interpretating Date/Time 09/18/2018 21:24:47
[2018-09-18] MEDS ORDERED: Amiodarone Inj 150 MG in Dextrose 5% in Water Inj 97 ML IV.SIG ONE ×2 (23:45)
[2018-09-19 04:51] LABS: Baso % (Auto) 0.3 % (0.0-2.0); Eos # (Auto) 0.1 th/mm3 (0.0-0.4); Eos % (Auto) 0.6 % (0.0-4.0); Hematocrit 30.4 % (39.0-51.0); Hemoglobin 10.3 gm/dL (13.0-17.0); Lymph # (Auto) 0.6 th/mm3 (1.0-4.8); Lymph % (Auto) 3.6 % (9.0-44.0); Mean Corpuscular HGB Conc 33.9 % (32.0-36.0); Mean Corpuscular Hemoglobin 32.9 pg (27.0-34.0); Mean Platelet Volume 8.5 fL (7.0-11.0); Mono # (Auto) 2.1 th/mm3 (0.0-0.9); Mono % (Auto) 12.4 % (0.0-8.0); Neut # (Auto) 14.4 th/mm3 (1.8-7.7); Neut % (Auto) 83.1 % (16.0-70.0); Platelet Count 133 th/mm3 (150-450); Red Blood Count 3.14 mil/mm3 (4.50-5.90); Red Cell Distribution Width 16.5 % (11.6-17.2); White Blood Count 17.3 th/mm3 (4.0-11.0)
[2018-09-19 05:17] LABS: Albumin 2.3 g/dL (3.4-5.0); Anion Gap 10 meq/L (5-15); Aspartate Aminotransferase 24 U/L (15-37); Blood Urea Nitrogen 84 mg/dL (7-18); Calcium 7.5 mg/dL (8.5-10.1); Carbon Dioxide 22.7 meq/L (21.0-32.0); Chloride 101 meq/L (98-107); Glomerular Filtration Rate 15 mL/min (>89); Glucose,Random 217 mg/dL (74-106); Magnesium 2.6 mg/dL (1.5-2.5); Phosphorus 3.6 mg/dL (2.5-4.9); Potassium 4.1 meq/L (3.5-5.1); Sodium 134 meq/L (136-145)
[2018-09-19 05:19] LABS: Alkaline Phosphatase 70 U/L (45-117); Total Protein 5.6 g/dL (6.4-8.2)
[2018-09-19] MEDS: Insulin NovoLOG Aspart Correctional Sugar Inj SQ SCH ×5 (06:29→21:03)
[2018-09-19 07:13] LABS: Eosinophils 1 % (0-4); Lymphocytes 3 % (9-44); Metamyelocytes 2 % (0-1); Monocytes 14 % (0-8); Myelocytes 1 % (0-0)
[2018-09-19 07:14] LABS: Ovalocytes 1+; Platelet Morphology Normal (Normal)
--- NOTE | 2018-09-19 08:36 | P.PNIM ---
Subjective Interval history: Patient reports he is feeling okay today. Went into A. fib with RVR again last night, he was put back on the amiodarone drip. Pain is controlled. Chest tube in place. Physical Exam Vital signs: Vital Signs 09/18/18 10:01 09/18/18 10:32 09/18/18 10:57 Temperature 99 F Pulse Rate 85 119 H 77 Respiratory Rate 18 16 Blood Pressure 152/86 H Pulse Oximetry 94 L 09/18/18 10:58 09/18/18 10:59 09/18/18 11:00 Temperature 97.7 F Pulse Rate 84 Respiratory Rate 17 17 Blood Pressure 127/71 Pulse Oximetry 95 95 09/18/18 12:05 09/18/18 14:40 09/18/18 15:00 Temperature 97.7 F 97 F L Pulse Rate 86 80 79 Respiratory Rate 18 18 16 Blood Pressure 120/62 Pulse Oximetry 97 09/18/18 19:00 09/18/18 20:00 09/18/18 20:03 Temperature 98.4 F Pulse Rate 101 H 98 H Respiratory Rate 18 Blood Pressure 99/55 L Pulse Oximetry 94 L 97 09/18/18 21:00 09/18/18 21:48 09/18/18 22:00 Temperature Pulse Rate 106 H 96 H Respiratory Rate 16 Blood Pressure Pulse Oximetry 09/18/18 23:00 09/19/18 00:00 09/19/18 01:00 Temperature 98.4 F Pulse Rate 98 H 100 H 108 H Respiratory Rate 18 Blood Pressure 131/77 Pulse Oximetry 95 09/19/18 03:00 09/19/18 05:50 09/19/18 06:00 Temperature 98.6 F Pulse Rate 110 H 96 H 104 H Respiratory Rate 18 16 Blood Pressure 115/64 Pulse Oximetry 96 Intake & Output 09/18/18 09/19/18 09/19/18 18:59 06:59 18:59 Intake Total 1344 / 1344 580 / 580 Output Total 610 / 610 480 / 480 Balance 734 / 734 100 / 100 Weight 101.5 kg Intake: IV 844 / 844 100 / 100 Cordarone Inj 450 MG In D5W Inj 364 / 364 241 ML @ 1 MG/MIN 33.33 mls/hr IV.CONT TITRATE PRN Rx#: [id number] NS Inj 1,000 ML @ 84 mls/hr IV. 480 / 480 CONT .[id number] [facility] Rx#:[id number] Cordarone Inj 150 MG In D5W Inj 100 / 100 97 ML @ 100 mls/hr IV.SIG ONCE ONE Rx#:[id number] Oral 500 / 500 480 / 480 Output: Urine 440 / 440 300 / 300 Chest Tube Drainage 170 / 170 180 / 180 Pleural/Mediastinal Y Connected 170 / 170 180 / 180 Other: # Voids 1 Date of Last Bowel Movement 09/15/18 # Bowel Movements 0 0 Narrative: GENERAL: This is a well-nourished, well-developed patient, in no apparent distress. CARDIOVASCULAR: Rate around 105 and irregular rhythm. Mild/soft rub. RESPIRATORY: Multiple chest tube in place good respiratory efforts. Breath sounds equal and clear to auscultation bilaterally. GASTROINTESTINAL: Abdomen soft, non-tender, non-distended. Normal active bowel sounds MUSCULOSKELETAL: Extremities without cyanosis, no significant lower extremity edema. NEURO: Alert & Oriented x4 to person, place, time, situation. Moves all ext x4 PSYCH: Appropriate mood and affect. Urinary Catheter Management Indwelling Temp Sensing Catheter: Cath placed during this visit: yes, but has since been removed by the nurse Reason for continuing: Not indwelling catheter Insertion date: 09/16/18 Insertion time: 08:00 Removal date: 09/17/18 Removal time: 06:00 Results Labs CBC & Chem 7: 09/19/18 04:00 09/19/18 04:00 Assessment and Plan Plan 78-year-old male status post coronary artery bypass grafting x4: BUSH to LAD, vein to OM1, vein to first diagonal, vein to ramus. s/p on-pump CABG x 4: BUSH-->LAD, SVG-->OM1, SVG-->RAMUS,SVG-->D1 09/16 Severe systolic dysfunction, EF 20% Moderate mitral regurgitation recent NSTEMI CAD -Off pressors -On amiodarone gtt. for A. fib per CV surgeon -Continue telemetry -Chest tube output still significant.. -Patient is normally on [place] at home prior to hospitalization. -Continue aspirin, Lipitor, Coreg History of atrial fibrillation and pacemaker placement: -Patient was on Multitak and Coumadin prior to admission. -On amiodarone drip as above per CV surgery. -Will need to resume anticoagulation when okay with surgery. Newer anticoagulant agent may be considered. CKD, stage IV -Nephrology following. -Function stable. -Monitor uop closely - daily bmp GI prophylaxis: PPI. Stool softener PRN constipation. DVT PPx: Lovenox Progress Note: Quality VTE Deep Vein Thrombosis/Pulmonary Embolism Present on Admission: No
--- NOTE | 2018-09-19 09:48 | P.PNCV ---
- Note Subjective/Hospital Course: A 78-year-old male, visiting from the [facility] here with his who presented to the emergency room with shortness of breath, cough, occasional sputum production greenish color, some congestion. No orthopnea, no lower extremity edema. No nausea or vomiting. No chest pain. He went to the Urgent Care and was prescribed some doxycycline, prednisone and antitussives, but did not feel any better. Started developing right-sided chest discomfort that was sharp, nonradiating, not associated with nausea. He was in a car. He drove for 3 days from the [place] area 08/26/2018 and arrived here on 08/29/2018. They did a complete workup on him and are treating him for bilateral infiltrates. He was also found to have acute kidney failure. He has a history of chronic kidney disease. 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 He also is on Coumadin for intermittent atrial fibrillation. They did a venous Doppler. There was no evidence of DVT. V/Q scan was low probability. He was further worked up. He had a mildly elevated troponin at 2.34. He was ruled in for a non-STEMI. He underwent cardiac catheterization showing 90% stenosis in the LAD, 95% proximal left circumflex, proximal left circumflex was 50, the RCA was 30%. The patient also was found to have moderate to severe mitral regurgitation. Cardiac catheterization revealed an ejection fraction of 45-50%, moderate to severe mitral valve regurgitation, trace tricuspid regurgitation. We were consulted to evaluate for coronary artery bypass grafting and mitral valve repair versus replacement. PAST MEDICAL HISTORY: Includes atrial fibrillation, diabetes mellitus, gastroesophageal reflux disease, glaucoma, gout, hypertension, prostate cancer, stage IV kidney disease, history of multiple myeloma where he was being worked up to have a bone biopsy. 09/14 on 3 liter nasal cannula feels a little better will check PA & lateral CXR today , also repeat labs pending pt on nonoliguric, no chest pain during the night 09/15 worsening renal indices Nephrology following , for surgery in am placement of perm cath as per Nephro decision no chest pain last night 09/17/18 Doing well s/p CABG x 4. Renal function is stable. Off pressors.~3kg up from preop weight. 09/18 Clinically and hemodynamically stable Normal sinus rhythm on IV amiodarone Change IV to p.o. amiodarone Transfer to CPCU Maintain chest tubes for now 09/19 Doing well Recurrent atrial fibrillation on IV amiodarone Chest tube continues to have significant serous drainage. Maintained to suction for now. Reevaluation for removal in a.m. Discharge planning Objective: Vital Signs - 24 hr 09/18/18 10:01 09/18/18 10:32 09/18/18 10:57 Temperature 99 F Pulse Rate 85 119 H 77 Respiratory Rate 18 16 Blood Pressure 152/86 H Pulse Oximetry 94 L 09/18/18 10:58 09/18/18 10:59 09/18/18 11:00 Temperature 97.7 F Pulse Rate 84 Respiratory Rate 17 17 Blood Pressure 127/71 Pulse Oximetry 95 95 09/18/18 12:05 09/18/18 14:40 09/18/18 15:00 Temperature 97.7 F 97 F L Pulse Rate 86 80 79 Respiratory Rate 18 18 16 Blood Pressure 120/62 Pulse Oximetry 97 09/18/18 19:00 09/18/18 20:00 09/18/18 20:03 Temperature 98.4 F Pulse Rate 101 H 98 H Respiratory Rate 18 Blood Pressure 99/55 L Pulse Oximetry 94 L 97 09/18/18 21:00 09/18/18 21:48 09/18/18 22:00 Temperature Pulse Rate 106 H 96 H Respiratory Rate 16 Blood Pressure Pulse Oximetry 09/18/18 23:00 09/19/18 00:00 09/19/18 01:00 Temperature 98.4 F Pulse Rate 98 H 100 H 108 H Respiratory Rate 18 Blood Pressure 131/77 Pulse Oximetry 95 09/19/18 03:00 09/19/18 05:50 09/19/18 06:00 Temperature 98.6 F Pulse Rate 110 H 96 H 104 H Respiratory Rate 18 16 Blood Pressure 115/64 Pulse Oximetry 96 09/19/18 07:00 Temperature 97.6 F Pulse Rate 91 H Respiratory Rate 18 Blood Pressure 137/84 Pulse Oximetry 94 L Labs: Laboratory Results - last 12 hr 09/19/18 09/19/18 04:00 04:00 WBC 17.3 H RBC 3.14 L Hgb 10.3 L Hct 30.4 L MCV 97.0 MCH 32.9 MCHC 33.9 RDW 16.5 Plt Count 133 L MPV 8.5 Prelim Diff (Auto) Slide review pending Neut % (Auto) 83.1 H Lymph % (Auto) 3.6 L Bollinger % (Auto) 12.4 H Eos % (Auto) 0.6 Baso % (Auto) 0.3 Neut # (Auto) 14.4 H Lymph # (Auto) 0.6 L Bollinger # (Auto) 2.1 H Eos # (Auto) 0.1 Baso # (Auto) 0.0 WBC Differential Manual diff final Seg Neuts % (Manual) 73 H Band Neuts % (Manual) 6 Lymphocytes % (Manual) 3 L Monocytes % (Manual) 14 H Eosinophils % (Manual) 1 Metamyelocytes % (Man) 2 H Myelocytes % (Man) 1 H Abs Neuts (Manual) 14.2 H Differential Comment . Platelet Estimate Low L Platelet Morphology Normal Ovalocytes 1+ H Sodium 134 L Potassium 4.1 Chloride 101 Carbon Dioxide 22.7 Anion Gap 10 BUN 84 H Creatinine 3.89 H Estimated GFR 15 L Random Glucose 217 H Calcium 7.5 L Phosphorus 3.6 Magnesium 2.6 H Total Bilirubin 0.8 AST 24 ALT Less than 6 L Alkaline Phosphatase 70 Total Protein 5.6 L D Albumin 2.3 L Result Diagrams: 09/19/18 04:00 09/19/18 04:00
[2018-09-19] MEDS: Docusate Sodium 100 MG Capsule PO SCH (10:32)
[2018-09-19] MEDS: Metoprolol Tartrate 25 MG Tablet PO SCH ×2 (10:32→21:01)
[2018-09-19] MEDS: Multivitamin/Minerals Therapeutic Tablet PO SCH (10:32)
[2018-09-19] MEDS: amLODIPine 5 MG Tablet PO SCH (10:32)
[2018-09-19] MEDS: Polyethylene Glycol 3350 17 GM Packet PO SCH (10:33)
--- NOTE | 2018-09-19 11:59 | P.PNNP ---
Subjective Interval history: patient sitting CT in place Physical Exam Vital signs: Vital Signs 09/18/18 12:05 09/18/18 14:40 09/18/18 15:00 Temperature 97.7 F 97 F L Pulse Rate 86 80 79 Respiratory Rate 18 18 16 Blood Pressure 120/62 Pulse Oximetry 97 09/18/18 19:00 09/18/18 20:00 09/18/18 20:03 Temperature 98.4 F Pulse Rate 101 H 98 H Respiratory Rate 18 Blood Pressure 99/55 L Pulse Oximetry 94 L 97 09/18/18 21:00 09/18/18 21:48 09/18/18 22:00 Temperature Pulse Rate 106 H 96 H Respiratory Rate 16 Blood Pressure Pulse Oximetry 09/18/18 23:00 09/19/18 00:00 09/19/18 01:00 Temperature 98.4 F Pulse Rate 98 H 100 H 108 H Respiratory Rate 18 Blood Pressure 131/77 Pulse Oximetry 95 09/19/18 03:00 09/19/18 05:50 09/19/18 06:00 Temperature 98.6 F Pulse Rate 110 H 96 H 104 H Respiratory Rate 18 16 Blood Pressure 115/64 Pulse Oximetry 96 09/19/18 07:00 09/19/18 08:00 09/19/18 11:00 Temperature 97.6 F 97.8 F Pulse Rate 91 H 106 H Respiratory Rate 18 18 Blood Pressure 137/84 111/69 Pulse Oximetry 94 L 93 L 93 L Intake & Output 09/18/18 09/19/18 09/19/18 18:59 06:59 18:59 Intake Total 1344 / 1344 580 / 580 Output Total 610 / 610 480 / 480 Balance 734 / 734 100 / 100 Weight 101.5 kg Intake: IV 844 / 844 100 / 100 Cordarone Inj 450 MG In D5W Inj 364 / 364 241 ML @ 1 MG/MIN 33.33 mls/hr IV.CONT TITRATE PRN Rx#: [id number] NS Inj 1,000 ML @ 84 mls/hr IV. 480 / 480 CONT .[id number] CORINE Rx#:[id number] Cordarone Inj 150 MG In D5W Inj 100 / 100 97 ML @ 100 mls/hr IV.SIG ONCE ONE Rx#:[id number] Oral 500 / 500 480 / 480 Output: Urine 440 / 440 300 / 300 Chest Tube Drainage 170 / 170 180 / 180 Pleural/Mediastinal Y Connected 170 / 170 180 / 180 Other: # Voids 1 Date of Last Bowel Movement 09/15/18 09/15/18 # Bowel Movements 0 0 Narrative: GENERAL: Well-nourished, well-developed patient. SKIN: Warm and dry. HEAD: Normocephalic. EYES: No scleral icterus. No injection or drainage. NECK: Supple, trachea midline. No JVD or lymphadenopathy. CARDIOVASCULAR: Regular rate and rhythm without murmurs, surgical dressing in place chest tube in place RESPIRATORY: Breath sounds equal bilaterally. No accessory muscle use. GASTROINTESTINAL: Abdomen soft, non-tender, nondistended. EXTREMITIES: Mild edema NEUROLOGICAL: Awake, alert, and oriented x 3. Non-focal. - Urinary Catheter Management Indwelling Temp Sensing Catheter Cath placed during this visit: yes, but has since been removed by the nurse Reason for continuing: Not indwelling catheter Insertion date: 09/16/18 Insertion time: 08:00 Removal date: 09/17/18 Removal time: 06:00 Assessment and Plan - Assessment (1) Stage 4 chronic kidney disease Code(s): N18.4 - Chronic kidney disease, stage 4 (severe) Status: Acute (2) Non-ST elevation [place] (NSTEMI) Code(s): I21.4 - Non-ST elevation (NSTEMI) myocardial infarction Status: Acute (3) Dyspnea Code(s): R06.00 - Dyspnea, unspecified Status: Acute Qualifiers: Dyspnea type: unspecified Qualified Code(s): R06.00 - Dyspnea, unspecified (4) Diabetes mellitus Code(s): E11.9 - Type 2 diabetes mellitus without complications Status: Acute - Plan Patient with stage 4 chronic kidney disease. 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 As per patient he was told that he has GFR of 16 ml/min. Now he is admitted with chest pain and diagnosed with NSTEMI. Cardiology following. Post Cardiac surgery. Creatinine remains 3.89 stage IV chronic kidney disease GFR 15 is nonoliguric Continue to monitor encourage water intake Weaned off vasopressors CT in place Dr. Ortiz to follow
[2018-09-19] MEDS: Latanoprost 0.005% Opth Drops 2.5 ML Bottle EACH EYE SCH (18:10)
[2018-09-20 04:17] LABS: Baso % (Auto) 0.2 % (0.0-2.0); Eos # (Auto) 0.2 th/mm3 (0.0-0.4); Eos % (Auto) 1.1 % (0.0-4.0); Hemoglobin 10.6 gm/dL (13.0-17.0); Lymph # (Auto) 0.5 th/mm3 (1.0-4.8); Lymph % (Auto) 2.8 % (9.0-44.0); Mean Corpuscular HGB Conc 35.4 % (32.0-36.0); Mean Corpuscular Hemoglobin 34.3 pg (27.0-34.0); Mean Corpuscular Volume 96.9 fL (80.0-100.0); Mean Platelet Volume 8.7 fL (7.0-11.0); Mono # (Auto) 1.7 th/mm3 (0.0-0.9); Mono % (Auto) 10.3 % (0.0-8.0); Neut # (Auto) 13.9 th/mm3 (1.8-7.7); Neut % (Auto) 85.6 % (16.0-70.0); Platelet Count 135 th/mm3 (150-450); Red Blood Count 3.09 mil/mm3 (4.50-5.90); Red Cell Distribution Width 16.1 % (11.6-17.2); White Blood Count 16.2 th/mm3 (4.0-11.0)
[2018-09-20 04:35] LABS: Calcium 7.7 mg/dL (8.5-10.1); Carbon Dioxide 24.7 meq/L (21.0-32.0); Potassium 3.9 meq/L (3.5-5.1)
[2018-09-20] MEDS: Insulin NovoLOG Aspart Correctional Sugar Inj SQ SCH ×5 (05:51→22:59)
[2018-09-20 06:21] LABS: Ovalocytes 1+; Platelet Estimate Normal (Normal); Platelet Morphology Normal (Normal); Toxic Granulation 1+
[2018-09-20] MEDS: Polyethylene Glycol 3350 17 GM Packet PO SCH (08:26)
[2018-09-20] MEDS: Metoprolol Tartrate 25 MG Tablet PO SCH ×2 (08:26→21:26)
[2018-09-20] MEDS: amLODIPine 5 MG Tablet PO SCH (08:26)
[2018-09-20] MEDS: Docusate Sodium 100 MG Capsule PO SCH (08:27)
[2018-09-20] MEDS: Multivitamin/Minerals Therapeutic Tablet PO SCH (08:27)
--- NOTE | 2018-09-20 10:11 | P.PNIM ---
Subjective Interval history: Patient reports constipation this morning. He is currently getting lactulose this morning. No nausea or vomiting. Physical Exam Vital signs: Vital Signs 09/19/18 11:00 09/19/18 12:43 09/19/18 12:50 Temperature 97.8 F Pulse Rate 106 H 113 H Respiratory Rate 18 20 Blood Pressure 111/69 Pulse Oximetry 93 L 95 09/19/18 15:00 09/19/18 19:00 09/19/18 19:58 Temperature 98.0 F 97.5 F L Pulse Rate 90 77 Respiratory Rate 18 18 Blood Pressure 110/62 120/72 Pulse Oximetry 97 96 97 09/19/18 20:00 09/19/18 22:05 09/19/18 23:00 Temperature 98.0 F Pulse Rate 66 Respiratory Rate 17 18 Blood Pressure 144/77 H Pulse Oximetry 96 97 09/20/18 03:00 09/20/18 04:07 09/20/18 07:00 Temperature 98.6 F Pulse Rate 75 84 69 Respiratory Rate 18 18 Blood Pressure 140/63 Pulse Oximetry 97 09/20/18 08:46 Temperature Pulse Rate 80 Respiratory Rate 16 Blood Pressure Pulse Oximetry 97 Intake & Output 09/19/18 09/20/18 09/20/18 18:59 06:59 18:59 Intake Total 960 / 960 490 / 490 Output Total 360 / 360 1040 / 1040 Balance 600 / 600 -550 / -550 Weight 102.2 kg Intake: IV 250 / 250 Cordarone Inj 450 MG In D5W Inj 250 / 250 241 ML @ 1 MG/MIN 33.33 mls/hr IV.CONT TITRATE PRN Rx#: [id number] Oral 960 / 960 240 / 240 Output: Urine 900 / 900 Chest Tube Drainage 360 / 360 140 / 140 Pleural/Mediastinal Y Connected 360 / 360 140 / 140 Other: # Voids 4 Date of Last Bowel Movement 09/15/18 Narrative: GENERAL: This is a well-nourished, well-developed patient, in no apparent distress. CARDIOVASCULAR: Rate around 105 and irregular rhythm. Mild/soft rub. RESPIRATORY: Multiple chest tube in place. good respiratory efforts. Breath sounds equal and clear to auscultation bilaterally. GASTROINTESTINAL: Abdomen soft, non-tender, non-distended. Normal active bowel sounds MUSCULOSKELETAL: Extremities without cyanosis, no significant lower extremity edema. NEURO: Alert & Oriented x4 to person, place, time, situation. Moves all ext x4 PSYCH: Appropriate mood and affect. Urinary Catheter Management Indwelling Temp Sensing Catheter: Cath placed during this visit: yes, but has since been removed by the nurse Reason for continuing: Not indwelling catheter Insertion date: 09/16/18 Insertion time: 08:00 Removal date: 09/17/18 Removal time: 06:00 Results Labs CBC & Chem 7: 09/20/18 03:40 09/20/18 03:40 Assessment and Plan Plan 78-year-old male status post coronary artery bypass grafting x4: BUSH to LAD, vein to OM1, vein to first diagonal, vein to ramus. s/p on-pump CABG x 4: BUSH-->LAD, SVG-->OM1, SVG-->RAMUS,SVG-->D1 09/16 Severe systolic dysfunction, EF 20% Moderate mitral regurgitation recent NSTEMI CAD -Off pressors -S/P amiodarone gtt. for A. fib per CV surgeon -Continue telemetry -Chest tube output still significant.. -Patient is normally on Multak at home prior to hospitalization. -Continue aspirin, Lipitor, Coreg History of atrial fibrillation and pacemaker placement: -Patient was on Multitak and Coumadin prior to admission. -S/P amiodarone drip as above per CV surgery. CT surgery to decide on resuming PO amiodorone vs Multaq -Will need to resume anticoagulation when okay with surgery. Newer anticoagulant agent may be considered. CKD, stage IV -Nephrology following. -Function stable. -Monitor uop closely - daily bmp Constipation: -Stool softeners and laxative as needed. Monitor output. GI prophylaxis: PPI. Stool softener PRN constipation. DVT PPx: Lovenox Progress Note: Quality VTE Deep Vein Thrombosis/Pulmonary Embolism Present on Admission: No
--- NOTE | 2018-09-20 14:33 | P.PNCV ---
- Note Subjective/Hospital Course: A 78-year-old male, visiting from the [facility] here with his who presented to the emergency room with shortness of breath, cough, occasional sputum production greenish color, some congestion. No orthopnea, no lower extremity edema. No nausea or vomiting. No chest pain. He went to the Urgent Care and was prescribed some doxycycline, prednisone and antitussives, but did not feel any better. Started developing right-sided chest discomfort that was sharp, nonradiating, not associated with nausea. He was in a car. He drove for 3 days from the [place] area 08/26/2018 and arrived here on 08/29/2018. They did a complete workup on him and are treating him for bilateral infiltrates. He was also found to have acute kidney failure. He has a history of chronic kidney disease. 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 He also is on Coumadin for intermittent atrial fibrillation. They did a venous Doppler. There was no evidence of DVT. V/Q scan was low probability. He was further worked up. He had a mildly elevated troponin at 2.34. He was ruled in for a non-STEMI. He underwent cardiac catheterization showing 90% stenosis in the LAD, 95% proximal left circumflex, proximal left circumflex was 50, the RCA was 30%. The patient also was found to have moderate to severe mitral regurgitation. Cardiac catheterization revealed an ejection fraction of 45-50%, moderate to severe mitral valve regurgitation, trace tricuspid regurgitation. We were consulted to evaluate for coronary artery bypass grafting and mitral valve repair versus replacement. PAST MEDICAL HISTORY: Includes atrial fibrillation, diabetes mellitus, gastroesophageal reflux disease, glaucoma, gout, hypertension, prostate cancer, stage IV kidney disease, history of multiple myeloma where he was being worked up to have a bone biopsy. 09/14 on 3 liter nasal cannula feels a little better will check PA & lateral CXR today , also repeat labs pending pt on nonoliguric, no chest pain during the night 09/15 worsening renal indices Nephrology following , for surgery in am placement of perm cath as per Nephro decision no chest pain last night 09/17/18 Doing well s/p CABG x 4. Renal function is stable. Off pressors.~3kg up from preop weight. 09/18 Clinically and hemodynamically stable Normal sinus rhythm on IV amiodarone Change IV to p.o. amiodarone Transfer to [facility] Maintain chest tubes for now 09/19 Doing well Recurrent atrial fibrillation on IV amiodarone Chest tube continues to have significant serous drainage. Maintained to suction for now. Reevaluation for removal in a.m. Discharge planning 09/20 pt drained 140cc/ chest tube last pm and additional 160cc since this am will leave chest tube in back in NSR add po amiodarone Objective: Vital Signs - 24 hr 09/19/18 15:00 09/19/18 19:00 09/19/18 19:58 Temperature 98.0 F 97.5 F L Pulse Rate 90 77 Respiratory Rate 18 18 Blood Pressure 110/62 120/72 Pulse Oximetry 97 96 97 09/19/18 20:00 09/19/18 22:05 09/19/18 23:00 Temperature 98.0 F Pulse Rate 66 Respiratory Rate 17 18 Blood Pressure 144/77 H Pulse Oximetry 96 97 09/20/18 03:00 09/20/18 04:07 09/20/18 07:00 Temperature 98.6 F 98.4 F Pulse Rate 75 84 81 Respiratory Rate 18 18 18 Blood Pressure 140/63 147/68 H Pulse Oximetry 97 97 09/20/18 08:46 09/20/18 11:00 Temperature 98.2 F Pulse Rate 80 81 Respiratory Rate 16 18 Blood Pressure 117/63 Pulse Oximetry 97 98 GENERAL: A&O x 3 SKIN: Warm and dry. prevena dressing to chest HEAD: Normocephalic. EYES: No scleral icterus. No injection or drainage. NECK: Supple, trachea midline. No JVD or lymphadenopathy. CARDIOVASCULAR: Regular rate and rhythm without murmurs, gallops, or rubs. +1 edema lower ext RESPIRATORY: Breath sounds equal bilaterally. No accessory muscle use. chest tube to wall suction, no air leak GASTROINTESTINAL: Abdomen soft, non-tender, nondistended. MUSCULOSKELETAL: No cyanosis, or edema. BACK: Nontender without obvious deformity. No CVA tenderness. Labs: Laboratory Results - last 12 hr 09/20/18 09/20/18 09/20/18 03:40 03:40 08:36 WBC 16.2 H RBC 3.09 L Hgb 10.6 L Hct 30.0 L MCV 96.9 MCH 34.3 H MCHC 35.4 RDW 16.1 Plt Count 135 L MPV 8.7 Prelim Diff (Auto) Slide review pending Neut % (Auto) 85.6 H Lymph % (Auto) 2.8 L [place] % (Auto) 10.3 H Eos % (Auto) 1.1 Baso % (Auto) 0.2 Neut # (Auto) 13.9 H Lymph # (Auto) 0.5 L [place] # (Auto) 1.7 H Eos # (Auto) 0.2 Baso # (Auto) 0.0 WBC Differential . Diff Scan Auto diff confirmed Differential Comment . Toxic Granulation 1+ H Platelet Estimate Normal Platelet Morphology Normal Ovalocytes 1+ H Keratocytes Occ H Sodium 137 Potassium 3.9 Chloride 104 Carbon Dioxide 24.7 Anion Gap 8 BUN 86 H Creatinine 3.62 H Estimated GFR 16 L POC Glucose 166 H Random Glucose 92 D Calcium 7.7 L 09/20/18 11:56 WBC RBC Hgb Hct MCV MCH MCHC RDW Plt Count MPV Prelim Diff (Auto) Neut % (Auto) Lymph % (Auto) [place] % (Auto) Eos % (Auto) Baso % (Auto) Neut # (Auto) Lymph # (Auto) [place] # (Auto) Eos # (Auto) Baso # (Auto) WBC Differential Diff Scan Differential Comment Toxic Granulation Platelet Estimate Platelet Morphology Ovalocytes Keratocytes Sodium Potassium Chloride Carbon Dioxide Anion Gap BUN Creatinine Estimated GFR POC Glucose 229 H Random Glucose Calcium Result Diagrams: 09/20/18 03:40 09/20/18 03:40 Telemetry: afib> NSR - Plan (1) S/P CABG x 4 Plan: resp: pulm toileting wean 02 as tolerated CV: on ASA, statin , BB , amiodarone diuresis as per Nephro non-oliguric back in NSR from Afib ( will need to start anticoagulation ) post CT removal ? eliquis 2.5 bid GI: PPI motility Meds PT/ OOB pt requesting rehab post dc (2) Non-ST elevation [place] (NSTEMI) Plan: ASA, statin, add low dose BB, stop norvasc for surgery Thur CXR improved / now on 2 liter nasal cannula (3) Stage 4 chronic kidney disease Plan: creatinine 4.13 non oliguric ? 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
[2018-09-20] MEDS: Latanoprost 0.005% Opth Drops 2.5 ML Bottle EACH EYE SCH (19:12)
--- NOTE | 2018-09-20 21:23 | P.PNNP ---
Subjective Interval history: Patient is alert, feeling better, still with CT, not in distress. Physical Exam Vital signs: Vital Signs 09/19/18 22:05 09/19/18 23:00 09/20/18 03:00 Temperature 98.0 F 98.6 F Pulse Rate 66 75 Respiratory Rate 17 18 18 Blood Pressure 144/77 H 140/63 Pulse Oximetry 97 97 09/20/18 04:07 09/20/18 07:00 09/20/18 08:46 Temperature 98.4 F Pulse Rate 84 81 80 Respiratory Rate 18 18 16 Blood Pressure 147/68 H Pulse Oximetry 97 97 09/20/18 11:00 09/20/18 15:00 09/20/18 15:48 Temperature 98.2 F 98.4 F Pulse Rate 81 69 73 Respiratory Rate 18 18 16 Blood Pressure 117/63 137/63 Pulse Oximetry 98 98 09/20/18 19:00 Temperature 98.0 F Pulse Rate 86 Respiratory Rate 18 Blood Pressure 131/67 Pulse Oximetry 99 Intake & Output 09/20/18 09/20/18 09/21/18 06:59 18:59 06:59 Intake Total 490 / 490 940 / 940 Output Total 1040 / 1040 750 / 750 Balance -550 / -550 190 / 190 Weight 102.2 kg Intake: IV 250 / 250 Cordarone Inj 450 MG In D5W Inj 250 / 250 241 ML @ 1 MG/MIN 33.33 mls/hr IV.CONT TITRATE PRN Rx#: [id number] Oral 240 / 240 940 / 940 Output: Urine 900 / 900 750 / 750 Chest Tube Drainage 140 / 140 Pleural/Mediastinal Y Connected 140 / 140 Other: Date of Last Bowel Movement 09/20/18 # Bowel Movements 2 Narrative: GENERAL: Well-nourished, well-developed patient. SKIN: Warm and dry. HEAD: Normocephalic. EYES: No scleral icterus. No injection or drainage. NECK: Supple, trachea midline. No JVD or lymphadenopathy. CARDIOVASCULAR: Regular rate and rhythm without murmurs, surgical dressing in place chest tube in place RESPIRATORY: Breath sounds equal bilaterally. No accessory muscle use. GASTROINTESTINAL: Abdomen soft, non-tender, nondistended. EXTREMITIES: Mild edema NEUROLOGICAL: Awake, alert, and oriented x 3. Non-focal. - Urinary Catheter Management Indwelling Temp Sensing Catheter Cath placed during this visit: yes, but has since been removed by the nurse Reason for continuing: Not indwelling catheter Insertion date: 09/16/18 Insertion time: 08:00 Removal date: 09/17/18 Removal time: 06:00 Assessment and Plan - Assessment (1) Stage 4 chronic kidney disease Code(s): N18.4 - Chronic kidney disease, stage 4 (severe) Status: Acute (2) Non-ST elevation [place] (NSTEMI) Code(s): I21.4 - Non-ST elevation (NSTEMI) myocardial infarction Status: Acute (3) Dyspnea Code(s): R06.00 - Dyspnea, unspecified Status: Acute Qualifiers: Dyspnea type: unspecified Qualified Code(s): R06.00 - Dyspnea, unspecified (4) Diabetes mellitus Code(s): E11.9 - Type 2 diabetes mellitus without complications Status: Acute Qualifiers: Diabetes mellitus type: type 2 - Plan Patient with stage 4 chronic kidney disease. 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 As per patient he was told that he has GFR of 16 ml/min. Now he is admitted with chest pain and diagnosed with NSTEMI. Cardiology following. Post Cardiac surgery. Creatinine is stable at 3.4-3.6. K is normal and no metabolic acidosis. BP is stable, urine out put is adequate for now. No urgent need for Dialysis. CT removal as per Cardiac surgery. Follow the urine out put and BMP.
[2018-09-21 04:48] LABS: Hematocrit 29.7 % (39.0-51.0); Hemoglobin 10.3 gm/dL (13.0-17.0); Mean Corpuscular HGB Conc 34.7 % (32.0-36.0); Mean Corpuscular Hemoglobin 33.7 pg (27.0-34.0); Mean Corpuscular Volume 97.1 fL (80.0-100.0); Mean Platelet Volume 7.8 fL (7.0-11.0); Platelet Count 134 th/mm3 (150-450); Red Blood Count 3.06 mil/mm3 (4.50-5.90); Red Cell Distribution Width 16.4 % (11.6-17.2); White Blood Count 10.9 th/mm3 (4.0-11.0)
[2018-09-21 05:13] LABS: Calcium 8.1 mg/dL (8.5-10.1); Carbon Dioxide 23.9 meq/L (21.0-32.0); Potassium 4.6 meq/L (3.5-5.1)
[2018-09-21] MEDS: Insulin NovoLOG Aspart Correctional Sugar Inj SQ SCH ×4 (06:35→16:54)
[2018-09-21] MEDS: Multivitamin/Minerals Therapeutic Tablet PO SCH (08:41)
[2018-09-21] MEDS: Docusate Sodium 100 MG Capsule PO SCH (08:41)
[2018-09-21] MEDS: amLODIPine 5 MG Tablet PO SCH (08:42)
[2018-09-21] MEDS: Metoprolol Tartrate 25 MG Tablet PO SCH ×3 (08:43→20:45)
--- NOTE | 2018-09-21 08:43 | P.PNIM ---
Subjective Interval history: Patient reports he is feeling okay today. Had bowel movement. Chest tube output decreased. Physical Exam Vital signs: Vital Signs 09/20/18 08:46 09/20/18 11:00 09/20/18 15:00 Temperature 98.2 F 98.4 F Pulse Rate 80 81 69 Respiratory Rate 16 18 18 Blood Pressure 117/63 137/63 Pulse Oximetry 97 98 98 09/20/18 15:48 09/20/18 19:00 09/20/18 20:00 Temperature 98.0 F Pulse Rate 73 78 Respiratory Rate 16 18 Blood Pressure 131/67 Pulse Oximetry 99 97 09/20/18 22:00 09/20/18 23:00 09/21/18 03:00 Temperature 98.1 F 98.0 F Pulse Rate 76 83 81 Respiratory Rate 19 18 18 Blood Pressure 123/58 L 131/65 Pulse Oximetry 97 96 96 09/21/18 04:35 Temperature Pulse Rate 83 Respiratory Rate 16 Blood Pressure Pulse Oximetry Intake & Output 09/20/18 09/21/18 09/21/18 18:59 06:59 18:59 Intake Total 940 / 940 240 / 240 Output Total 750 / 750 1130 / 1130 Balance 190 / 190 -890 / -890 Weight 100 kg Intake: Oral 940 / 940 240 / 240 Output: Urine 750 / 750 1050 / 1050 Chest Tube Drainage 80 / 80 Pleural/Mediastinal Y Connected 80 / 80 Other: Date of Last Bowel Movement 09/20/18 # Bowel Movements 2 Narrative: GENERAL: This is a well-nourished, well-developed patient, in no apparent distress. CARDIOVASCULAR: Normal rate and irregular rhythm. Mild/soft rub. RESPIRATORY: Multiple chest tube in place. good respiratory efforts. Breath sounds equal and clear to auscultation bilaterally. GASTROINTESTINAL: Abdomen soft, non-tender, non-distended. Normal active bowel sounds MUSCULOSKELETAL: Extremities without cyanosis, no significant lower extremity edema. NEURO: Alert & Oriented x4 to person, place, time, situation. Moves all ext x4 PSYCH: Appropriate mood and affect. Urinary Catheter Management Indwelling Temp Sensing Catheter: Cath placed during this visit: yes, but has since been removed by the nurse Reason for continuing: Not indwelling catheter Insertion date: 09/16/18 Insertion time: 08:00 Removal date: 09/17/18 Removal time: 06:00 Results Labs CBC & Chem 7: 09/21/18 04:26 09/21/18 04:26 Assessment and Plan (1) Stage 4 chronic kidney disease: Code(s): N18.4 - Chronic kidney disease, stage 4 (severe) Status: Acute (2) Non-ST elevation [place] (NSTEMI): Code(s): I21.4 - Non-ST elevation (NSTEMI) myocardial infarction Status: Acute (3) Dyspnea: Code(s): R06.00 - Dyspnea, unspecified Status: Acute (4) Diabetes mellitus: Code(s): E11.9 - Type 2 diabetes mellitus without complications Status: Acute Plan 78-year-old male status post coronary artery bypass grafting x4: BUSH to LAD, vein to OM1, vein to first diagonal, vein to ramus. s/p on-pump CABG x 4: BUSH-->LAD, SVG-->OM1, SVG-->RAMUS,SVG-->D1 09/16 Severe systolic dysfunction, EF 20% Moderate mitral regurgitation recent NSTEMI CAD -Off pressors -S/P amiodarone gtt. for A. fib per CV surgeon -Continue telemetry -Chest tube management per CT surgery -Resumed oral Multak, home dose. -Continue aspirin, Lipitor. Discussed with RN to clarify Coreg versus metoprolol with CT surgery. History of atrial fibrillation and pacemaker placement: -Patient was on Multitak and Coumadin prior to admission. -S/P amiodarone drip as above per CV surgery. Back in SR. On Multaq, home dose. -Will need to resume anticoagulation when okay with surgery. 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 CKD, stage IV -Nephrology following. -Function stable. -Monitor uop closely - daily bmp Constipation: -Stool softeners and laxative as needed. Monitor output. GI prophylaxis: PPI. Stool softener PRN constipation. DVT PPx: Lovenox Dispo: Will need rehab placement. Progress Note: Quality VTE Deep Vein Thrombosis/Pulmonary Embolism Present on Admission: No _ (1) Diabetes mellitus Qualifiers: Chronic kidney disease stage: Diabetes mellitus complication detail: Diabetes mellitus complication status: Diabetes mellitus penitentiary insulin use : Diabetes mellitus macular edema: Diabetes mellitus type: type 2 Diabetic retinopathy severity: Laterality: Proliferative retinopathy type: (2) Dyspnea Qualifiers: Dyspnea type: unspecified Qualified Code(s): R06.00 - Dyspnea, unspecified
[2018-09-21] MEDS: Polyethylene Glycol 3350 17 GM Packet PO SCH (08:45)
--- NOTE | 2018-09-21 10:20 | P.PNCV ---
- Note Subjective/Hospital Course: A 78-year-old male, visiting from the [facility] here with his who presented to the emergency room with shortness of breath, cough, occasional sputum production greenish color, some congestion. No orthopnea, no lower extremity edema. No nausea or vomiting. No chest pain. He went to the Urgent Care and was prescribed some doxycycline, prednisone and antitussives, but did not feel any better. Started developing right-sided chest discomfort that was sharp, nonradiating, not associated with nausea. He was in a car. He drove for 3 days from the [place] area 08/26/2018 and arrived here on 08/29/2018. They did a complete workup on him and are treating him for bilateral infiltrates. He was also found to have acute kidney failure. He has a history of chronic kidney disease. 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 He also is on Coumadin for intermittent atrial fibrillation. They did a venous Doppler. There was no evidence of DVT. V/Q scan was low probability. He was further worked up. He had a mildly elevated troponin at 2.34. He was ruled in for a non-STEMI. He underwent cardiac catheterization showing 90% stenosis in the LAD, 95% proximal left circumflex, proximal left circumflex was 50, the RCA was 30%. The patient also was found to have moderate to severe mitral regurgitation. Cardiac catheterization revealed an ejection fraction of 45-50%, moderate to severe mitral valve regurgitation, trace tricuspid regurgitation. We were consulted to evaluate for coronary artery bypass grafting and mitral valve repair versus replacement. PAST MEDICAL HISTORY: Includes atrial fibrillation, diabetes mellitus, gastroesophageal reflux disease, glaucoma, gout, hypertension, prostate cancer, stage IV kidney disease, history of multiple myeloma where he was being worked up to have a bone biopsy. 09/14 on 3 liter nasal cannula feels a little better will check PA & lateral CXR today , also repeat labs pending pt on nonoliguric, no chest pain during the night 09/15 worsening renal indices Nephrology following , for surgery in am placement of perm cath as per Nephro decision no chest pain last night 09/17/18 Doing well s/p CABG x 4. Renal function is stable. Off pressors.~3kg up from preop weight. 09/18 Clinically and hemodynamically stable Normal sinus rhythm on IV amiodarone Change IV to p.o. amiodarone Transfer to [facility] Maintain chest tubes for now 09/19 Doing well Recurrent atrial fibrillation on IV amiodarone Chest tube continues to have significant serous drainage. Maintained to suction for now. Reevaluation for removal in a.m. 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 for transfer to in rehab in am chest tube removed without difficulty Objective: Vital Signs - 24 hr 09/20/18 11:00 09/20/18 15:00 09/20/18 15:48 Temperature 98.2 F 98.4 F Pulse Rate 81 69 73 Respiratory Rate 18 18 16 Blood Pressure 117/63 137/63 Pulse Oximetry 98 98 09/20/18 19:00 09/20/18 20:00 09/20/18 22:00 Temperature 98.0 F Pulse Rate 78 76 Respiratory Rate 18 19 Blood Pressure 131/67 Pulse Oximetry 99 97 97 09/20/18 23:00 09/21/18 03:00 09/21/18 04:35 Temperature 98.1 F 98.0 F Pulse Rate 83 81 83 Respiratory Rate 18 18 16 Blood Pressure 123/58 L 131/65 Pulse Oximetry 96 96 09/21/18 07:00 09/21/18 08:00 09/21/18 09:00 Temperature 98.0 F Pulse Rate 85 80 84 Respiratory Rate 18 Blood Pressure 146/70 H Pulse Oximetry 98 09/21/18 09:50 09/21/18 10:00 Temperature Pulse Rate 76 83 Respiratory Rate 16 Blood Pressure Pulse Oximetry 97 GENERAL: A&O x 3 SKIN: Warm and dry. prevena dressing to chest HEAD: Normocephalic. EYES: No scleral icterus. No injection or drainage. NECK: Supple, trachea midline. No JVD or lymphadenopathy. CARDIOVASCULAR: irregular rate and rhythm without murmurs, gallops, or rubs. mild lower ext edema RESPIRATORY: Breath sounds equal bilaterally. No accessory muscle use. diminished in bases GASTROINTESTINAL: Abdomen soft, non-tender, nondistended. MUSCULOSKELETAL: No cyanosis, or edema. BACK: Nontender without obvious deformity. No CVA tenderness. Labs: Laboratory Results - last 12 hr 09/20/18 09/21/18 09/21/18 22:30 04:26 04:26 WBC 10.9 RBC 3.06 L Hgb 10.3 L Hct 29.7 L MCV 97.1 MCH 33.7 MCHC 34.7 RDW 16.4 Plt Count 134 L MPV 7.8 Sodium 137 Potassium 4.6 Chloride 104 Carbon Dioxide 23.9 Anion Gap 9 BUN 70 H Creatinine 3.15 H Estimated GFR 19 L POC Glucose 200 H Random Glucose 163 H Calcium 8.1 L 09/21/18 07:36 WBC RBC Hgb Hct MCV MCH MCHC RDW Plt Count MPV Sodium Potassium Chloride Carbon Dioxide Anion Gap BUN Creatinine Estimated GFR POC Glucose 185 H Random Glucose Calcium Result Diagrams: 09/21/18 04:26 09/21/18 04:26 - Plan (1) S/P CABG x 4 Plan: resp: pulm toileting on room air CV: on ASA, statin , BB , multag start anticoagulation ) post CT removal eliquis 2.5 bid GI: PPI motility Meds PT/ OOB pt requesting rehab post dc eval for dc in am (2) Non-ST elevation NV (NSTEMI) Plan: ASA, statin, add low dose BB, stop norvasc for surgery Thur CXR improved / now on 2 liter nasal cannula (3) Stage 4 chronic kidney disease Plan: creatinine 4.13 non oliguric ? 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
--- NOTE | 2018-09-21 17:05 | P.PNNP ---
Subjective Interval history: itting up in chair with at bedside. Creatinine stable at 3.15. No shortness of breath, nausea, or vomiting. <Kelly Miranda - Last Filed: 09/21/18 17:02> Physical Exam Vital signs: Vital Signs 09/20/18 19:00 09/20/18 20:00 09/20/18 22:00 Temperature 98.0 F Pulse Rate 78 76 Respiratory Rate 18 19 Blood Pressure 131/67 Pulse Oximetry 99 97 97 09/20/18 23:00 09/21/18 03:00 09/21/18 04:35 Temperature 98.1 F 98.0 F Pulse Rate 83 81 83 Respiratory Rate 18 18 16 Blood Pressure 123/58 L 131/65 Pulse Oximetry 96 96 09/21/18 07:00 09/21/18 08:00 09/21/18 09:00 Temperature 98.0 F Pulse Rate 85 80 84 Respiratory Rate 18 Blood Pressure 146/70 H Pulse Oximetry 98 09/21/18 09:50 09/21/18 10:00 09/21/18 11:00 Temperature 98.4 F Pulse Rate 76 83 83 Respiratory Rate 16 18 Blood Pressure 132/68 Pulse Oximetry 97 97 09/21/18 12:00 09/21/18 13:00 09/21/18 14:00 Temperature Pulse Rate 80 82 84 Respiratory Rate Blood Pressure Pulse Oximetry 09/21/18 15:00 09/21/18 15:43 09/21/18 16:00 Temperature 98.5 F Pulse Rate 83 76 78 Respiratory Rate 18 14 Blood Pressure 138/64 Pulse Oximetry 98 Intake & Output 09/20/18 09/21/18 09/21/18 18:59 06:59 18:59 Intake Total 940 / 940 240 / 240 Output Total 750 / 750 1130 / 1130 Balance 190 / 190 -890 / -890 Weight 100 kg Intake: Oral 940 / 940 240 / 240 Output: Urine 750 / 750 1050 / 1050 Chest Tube Drainage 80 / 80 Pleural/Mediastinal Y Connected 80 / 80 Other: Date of Last Bowel Movement 09/20/18 # Bowel Movements 2 Narrative: GENERAL: Well-nourished, well-developed patient. SKIN: Warm and dry. NECK: Supple, trachea midline. No JVD or lymphadenopathy. CARDIOVASCULAR: Regular rate and rhythm without murmurs, RESPIRATORY: Breath sounds equal bilaterally. No accessory muscle use. GASTROINTESTINAL: Abdomen soft, non-tender, nondistended. EXTREMITIES: Mild edema NEUROLOGICAL: Awake, alert, and oriented x 3. Non-focal. - Urinary Catheter Management Indwelling Temp Sensing Catheter Cath placed during this visit: yes, but has since been removed by the nurse Reason for continuing: Not indwelling catheter Insertion date: 09/16/18 Insertion time: 08:00 Removal date: 09/17/18 Removal time: 06:00 <Kelly Miranda - Last Filed: 09/21/18 17:02> Vital signs: Vital Signs 09/20/18 23:00 09/21/18 03:00 09/21/18 04:35 Temperature 98.1 F 98.0 F Pulse Rate 83 81 83 Respiratory Rate 18 18 16 Blood Pressure 123/58 L 131/65 Pulse Oximetry 96 96 09/21/18 07:00 09/21/18 08:00 09/21/18 09:00 Temperature 98.0 F Pulse Rate 85 80 84 Respiratory Rate 18 Blood Pressure 146/70 H Pulse Oximetry 98 09/21/18 09:50 09/21/18 10:00 09/21/18 11:00 Temperature 98.4 F Pulse Rate 76 83 83 Respiratory Rate 16 18 Blood Pressure 132/68 Pulse Oximetry 97 97 09/21/18 12:00 09/21/18 13:00 09/21/18 14:00 Temperature Pulse Rate 80 82 84 Respiratory Rate Blood Pressure Pulse Oximetry 09/21/18 15:00 09/21/18 15:43 09/21/18 16:00 Temperature 98.5 F Pulse Rate 83 76 78 Respiratory Rate 18 14 Blood Pressure 138/64 Pulse Oximetry 98 09/21/18 17:00 09/21/18 18:00 09/21/18 19:00 Temperature 98.6 F Pulse Rate 76 74 81 Respiratory Rate 19 Blood Pressure 146/68 H Pulse Oximetry 98 09/21/18 20:00 Temperature Pulse Rate 84 Respiratory Rate Blood Pressure Pulse Oximetry 98 Intake & Output 09/21/18 09/21/18 09/22/18 06:59 18:59 06:59 Intake Total 240 / 240 975 / 975 Output Total 1130 / 1130 850 / 850 Balance -890 / -890 125 / 125 Weight 100 kg Intake: Oral 240 / 240 975 / 975 Output: Urine 1050 / 1050 850 / 850 Chest Tube Drainage 80 / 80 Pleural/Mediastinal Y Connected 80 / 80 Other: # Bowel Movements 0 - Urinary Catheter Management Indwelling Temp Sensing Catheter Cath placed during this visit: no <Martha Ortiz - Last Filed: 09/21/18 22:30> Assessment and Plan - Assessment (1) Stage 4 chronic kidney disease Code(s): N18.4 - Chronic kidney disease, stage 4 (severe) Status: Acute (2) Non-ST elevation PR (NSTEMI) Code(s): I21.4 - Non-ST elevation (NSTEMI) myocardial infarction Status: Acute (3) Dyspnea Code(s): R06.00 - Dyspnea, unspecified Status: Acute Qualifiers: Dyspnea type: unspecified Qualified Code(s): R06.00 - Dyspnea, unspecified (4) Diabetes mellitus Code(s): E11.9 - Type 2 diabetes mellitus without complications Status: Acute Qualifiers: Diabetes mellitus type: type 2 - Plan Patient with stage 4 chronic kidney disease. He has been following with [facility]. As per patient he was told that he has GFR of 16 ml/min. Now he is admitted with chest pain and diagnosed with NSTEMI. Cardiology following. Post Cardiac surgery. Creatinine is stable at 3.1 today, adequate urinary output. Avoid nephrotoxins Fluid and electrolytes stable. Follow the urine out put and BMP. <Kelly Miranda - Last Filed: 09/21/18 17:02> - Assessment (1) Stage 4 chronic kidney disease Code(s): N18.4 - Chronic kidney disease, stage 4 (severe) Status: Acute (2) Non-ST elevation PR (NSTEMI) Code(s): I21.4 - Non-ST elevation (NSTEMI) myocardial infarction Status: Acute (3) Dyspnea Code(s): R06.00 - Dyspnea, unspecified Status: Acute Qualifiers: Dyspnea type: unspecified Qualified Code(s): R06.00 - Dyspnea, unspecified (4) Diabetes mellitus Code(s): E11.9 - Type 2 diabetes mellitus without complications Status: Acute Qualifiers: Diabetes mellitus type: type 2 - Plan Patient seen and examined, agree with above. Creatinine is stable. For possible transfer to [place] tomorrow. <Martha Ortiz - Last Filed: 09/21/18 22:30>
[2018-09-21] MEDS: Latanoprost 0.005% Opth Drops 2.5 ML Bottle EACH EYE SCH (17:55)
--- NOTE | 2018-09-21 21:56 | XR ---
EXAM DATE: 09/21/2018 8:26 PM EST AGE/SEX: 78 years / Male INDICATIONS: Shortness of breath. Fluid in both legs. CLINICAL DATA: This is the patient's subsequent encounter. Patient reports that signs and symptoms h ave been present for 4 - 6 days and indicates a pain score of 0/10. MEDICAL/SURGICAL HISTORY: . A-fib. Achilles tendon injury. Diabetes. Radiation therapy. GERD. Glaucoma. Gout. Hypertension. Prostate cancer. Stage 4 chronic kidney disease. . Cholecystectomy . Pacemaker. Hernia repair. Appendectomy. COMPARISON: [facility] [place]ST 1V SINGLE AP, 09/17/2018. . FINDINGS: Pacemaker present in the left chest. Cardiomegaly with previous bypass and mild interstitial edema. N o significant joint effusion. There is no pneumothorax. Degenerative changes about both shoulders. CONCLUSION: Cardiomegaly with mild congestive failure. Congestive failure has progressed in the interval. Electronically signed by: Pascual Hatch MD Board Certified Radiologist 09/21/2018 8:32 PM EST
[2018-09-22] MEDS: Insulin NovoLOG Aspart Correctional Sugar Inj SQ SCH ×4 (00:26→11:05)
[2018-09-22 05:37] LABS: Hematocrit 27.6 % (39.0-51.0); Hemoglobin 9.5 gm/dL (13.0-17.0); Mean Corpuscular HGB Conc 34.3 % (32.0-36.0); Mean Corpuscular Hemoglobin 33.6 pg (27.0-34.0); Mean Corpuscular Volume 98.1 fL (80.0-100.0); Platelet Count 147 th/mm3 (150-450); Red Blood Count 2.81 mil/mm3 (4.50-5.90); Red Cell Distribution Width 16.3 % (11.6-17.2)
[2018-09-22 06:08] LABS: Calcium 7.4 mg/dL (8.5-10.1); Carbon Dioxide 24.8 meq/L (21.0-32.0); Potassium 4.2 meq/L (3.5-5.1)
[2018-09-22 06:25] LABS: Albumin 2.1 g/dL (3.4-5.0); Calcium-Albumin Corrected 8.9 mg/dL (8.5-10.1)
--- NOTE | 2018-09-22 07:02 | XR ---
EXAM DATE: 09/22/2018 5:05 AM EST AGE/SEX: 78 years / Male INDICATIONS: Post chest tube removal. CLINICAL DATA: This is the patient's subsequent encounter. Patient reports that signs and symptoms h ave been present for 4 - 6 days and indicates a pain score of Nonresponsive. MEDICAL/SURGICAL HISTORY: . A-fib. Achilles tendon injury. Diabetes. Radiation therapy. GERD. G laucoma. Gout. Hypertension. Prostate cancer. Stage 4 chronic kidney disease. . Cholecystectomy. Pac emaker. Hernia repair. Appendectomy. COMPARISON: [facility] – [place], CHEST 1V SINGLE AP, 09/21/2018. [facility] – [place] CHEST 1V SINGLE AP, 09/17/2018. . FINDINGS: A single AP view of the chest demonstrates cardiomegaly with interstitial edema. Status post CABG. Le ft-sided pacemaker unchanged. The cardiomediastinal contours are unremarkable. Osseous structures a re intact. No pneumothorax. CONCLUSION: 1. Cardiomegaly with interstitial edema. 2. Status post CABG. Electronically signed by: Timmy Mccrary MD Board Certified Radiologist 09/22/2018 5:48 AM EST
[2018-09-22] MEDS: amLODIPine 5 MG Tablet PO SCH (08:21)
[2018-09-22] MEDS: Multivitamin/Minerals Therapeutic Tablet PO SCH (08:21)
[2018-09-22] MEDS: Metoprolol Tartrate 25 MG Tablet PO SCH (08:21)
[2018-09-22] MEDS: Docusate Sodium 100 MG Capsule PO SCH (08:22)
[2018-09-22] MEDS: Polyethylene Glycol 3350 17 GM Packet PO SCH (08:22)
--- NOTE | 2018-09-22 09:34 | P.DS ---
DS: Providers Date of admission: 09/10/18 06:17 Primary care physician: Kenrick Wood Consults: 09/10/18 06:30 Consult to Cardiology Routine Consulting Provider: Piotr Brewster Does the patient have a Fire Behavior Analyst who follows them?: No Preferred Back Tufter:: Piotr Brewster Reason for Consultation: Elevated troponin, possible NSTEMI, already discussed with via phone. Please do not call Notified:: Service Spoke with:: noemi Date Notified:: 09/10/18 Time Notified:: 07:16 Ordering Provider: GEGE 09/10/18 15:59 Consult to Nephrology Routine Consulting Provider: Martha Ortiz Does the patient have a Robotic Machine Tender Production who follows them?: No Preferred Nephrology Second Hand Paper Machine:: Mirror Specialist Physician Reason for Consultation: Ckd Notified:: Service Spoke with:: wu Date Notified:: 09/10/18 Time Notified:: 16:03 Ordering Provider: LAKE 09/13/18 10:26 Consult to Cardiothoracic Surgery Routine Consulting Provider: Umm Ravi Reason for Consultation: CABG.MVR Notified:: Physician Spoke with:: Dr Ravi ( Amy, [facility] ) Date Notified:: 09/13/18 Time Notified:: 10:34 Ordering Provider: EUNICE 09/16/18 13:03 Consult to Director Property Stat Consulting Provider: Erik Castillo For STAT consult, spoke directly to:: lorelei Preferred Second Hand Paper Machine:: Erik Castillo Reason for Consultation: s/p CABG with known moderate MR and EF ~40% s/p NSTEMI. Class 4 renal disease Notified:: Service Spoke with:: Ernie Date Notified:: 09/16/18 Time Notified:: 15:25 Ordering Provider: SHELIA 09/18/18 21:07 Consult to Hospitalist Routine Consulting Provider: Lita Salcedo Reason for Consultation: NSTEMI Notified:: Service Spoke with:: yaa Date Notified:: 09/18/18 Time Notified:: 07:39 Comments:: waiting lunchroom monitor back Ordering Provider: TIAN Brief History from admission: HPI on admission as documented by the admitting physician: This is a 78-year-old male with history of diabetes mellitus, atrial fibrillation status post pacemaker placement, and chronic kidney disease stage IV presenting with shortness of breath and cough. Of note, patient is visiting here from [place] and is recently being worked up to rule out multiple myeloma. Patient started having shortness of breath associated with cough with occasional sputum production that is greenish about 3 days ago with note of congestion but no orthopnea or lower extremity swelling. There is no note of nausea, vomiting, fever, chills but his sister who he drove in the car with has upper respiratory tract infection. 2 days ago, he presented to the urgent care center who prescribed him doxycycline, prednisone and antitussives. Patient had single dose of everything that was prescribed but did not afford any relief. Yesterday, patient also started having right-sided chest discomfort which lasted for about 5 hours, described as sharp, nonradiating, not associated with nausea, vomiting, palpitations, blurring of vision. Of note, he drove down from [place] on August 26 for 3 days and arrived here August 29. There is no note of leg swelling after the drive. Also of particular importance , he was supposed to get his bone biopsy as part of his workup for multiple myeloma and has been off Coumadin for about 2 weeks. He restarted Coumadin before driving south. There is no history of pulmonary embolism, DVT, [place], stroke, CHF. He stopped smoking about 40 years ago. No significant family history. Patient update on day of discharge: Patient reports he is feeling much better today. Excited to transition to rehab. Discussed with CT surgery team. DS: Diagnosis Discharge Diagnosis (1) Stage 4 chronic kidney disease: Status: Acute (2) Non-ST elevation [place] (NSTEMI): Status: Acute (3) Dyspnea: Status: Acute (4) Diabetes mellitus: Status: Acute DS: Summary 78-year-old male who was found to have coronary artery disease, status post coronary artery bypass grafting x4: BUSH to LAD, vein to OM1, vein to first diagonal, vein to ramus. Treatment course detailed below: s/p on-pump CABG x 4: BUSH-->LAD, SVG-->OM1, SVG-->RAMUS,SVG-->D1 09/16 Severe systolic dysfunction, EF 20% Moderate mitral regurgitation recent NSTEMI CAD -Status post pressors -Patient required amiodarone drip. He was eventually transitioned to oral antiarrhythmics. -Resumed oral Multak, home dose. -Continue aspirin, Lipitor, Coreg. -Discussed with CT surgery on the day of discharge. He will be discharged on Lasix for mild interstitial edema. History of atrial fibrillation and pacemaker placement: -Patient was on Multitak and Coumadin prior to admission. -S/P amiodarone drip as above per CV surgery. Back in SR. On Multaq, home dose. -Discussed with CT surgery. Patient started on Eliquis for anticoagulation. He was given an half the dose due to renal disease. CKD, stage IV -Nephrology followed the patient. His renal function continues to improve. He can be followed by nephrology in rehab. Patient is stable for discharge to inpatient rehab. Time Spent with Patient Total time spent providing and/or coordinating discharge services: Greater than 30 minutes Quality: VTE Deep Vein Thrombosis/Pulmonary Embolism Present on Admission: No Exam Narrative Exam Narrative: GENERAL: This is a well-nourished, well-developed patient, in no apparent distress. CARDIOVASCULAR: Normal rate and irregular rhythm. Mild/soft rub. RESPIRATORY: Good respiratory efforts. Breath sounds equal and clear to auscultation bilaterally. GASTROINTESTINAL: Abdomen soft, non-tender, non-distended. Normal active bowel sounds MUSCULOSKELETAL: Extremities without cyanosis, no significant lower extremity edema. NEURO: Alert & Oriented x4 to person, place, time, situation. Moves all ext x4 PSYCH: Appropriate mood and affect. Results Completed studies during hospitalization: Pending at discharge 09/16/18 08:45 Surgical [PTH] Routine Labs on day of discharge: Labs from last 24 hours 09/22/18 09/22/18 09/21/18 05:16 05:16 20:43 WBC 8.0 RBC 2.81 L Hgb 9.5 L Hct 27.6 L MCV 98.1 MCH 33.6 MCHC 34.3 RDW 16.3 Plt Count 147 L MPV 8.0 Sodium 140 Potassium 4.2 Chloride 107 Carbon Dioxide 24.8 Anion Gap 8 BUN 60 H Creatinine 2.91 H Estimated GFR 21 L POC Glucose 121 H Random Glucose 175 H Calcium 7.4 L* Calcium Adj for Albumin 8.9 Albumin 2.1 L 09/21/18 09/21/18 16:06 12:12 WBC RBC Hgb Hct MCV MCH MCHC RDW Plt Count MPV Sodium Potassium Chloride Carbon Dioxide Anion Gap BUN Creatinine Estimated GFR POC Glucose 97 196 H Random Glucose Calcium Calcium Adj for Albumin Albumin Impressions ITS Impressions Pulmonary Perfusion Imaging 09/10/18 00:00 CONCLUSION: 1. Low probability pulmonary embolism. Venous Doppler Study 09/10/18 00:00 CONCLUSION: 1. The study is negative for bilateral lower extremity deep venous thrombosis. Abdomen/Bladder Ultrasound 09/11/18 00:00 CONCLUSION: 1. Right renal cyst. 2. Kidneys otherwise appear unremarkable. Carotid Doppler Study 09/13/18 15:02 CONCLUSION: 1. Right Internal Carotid Artery: Findings indicate <50% stenosis. 2. Left Internal Carotid Artery: Findings indicate <50% stenosis. Lower Extremity Ultrasound 09/13/18 15:02 CONCLUSION: 1. Patent lower extremity veins with venous mapping measurements, as above. Chest X-Ray 09/22/18 06:00 CONCLUSION: 1. Cardiomegaly with interstitial edema. 2. Status post CABG. Discharge Plan Discharge Disposition Patient Disposition: 62 Rehab Inpatient Discharge Condition Condition: Stable Discharge Order Discharge Orders: Discharge Order (Routine); Ordered 09/22/18 Ordered By: Za Fink Physicians Team Attending Provider: Za Fink Other Providers: Piotr Brewster ; Martha Ortiz ; Umm Ravi ; Erik Castillo Rxs /Orders / Referrals /Forms Prescriptions: New furosemide 40 mg Tablet 40 mg PO DAILY RF: 0 atorvastatin 80 mg Tablet 80 mg PO HS RF: 0 acetaminophen 325 mg Tablet 650 mg PO Q4H PRN (Reason: Temp > 100.4) RF: 0 polyethylene glycol 3350 17 gram Powder In Packet 17 gm PO DAILY RF: 0 carvedilol [Coreg] 3.125 mg Tablet 6.25 mg PO BID RF: 0 oxycodone-acetaminophen 5-325 mg Tablet 1 tab PO Q3H PRN (Reason: Pain Scale 1 To 5) RF: 0 diphenhydramine HCl [Benadryl] 25 mg Capsule 25 mg PO HS PRN (Reason: insomnia ) Qty: 30 RF: 0 aspirin 81 mg Tablet,Chewable 81 mg PO DAILY RF: 0 sitagliptin [Januvia] 25 mg Tablet 25 mg PO DAILY RF: 0 ewtmcnsz-deqh-LP-calcium-mins [Thera M Plus (ferrous fumarat)] 9 mg iron-400 mcg Tablet 1 tab PO DAILY RF: 0 apixaban [Eliquis] 2.5 mg Tablet 2.5 mg PO BID RF: 0 Continue latanoprost 0.005 % Drops 1 drp OPHTHALMIC (EYE) QPM RF: 0 allopurinol 100 mg Tablet 100 mg PO BID RF: 0 tamsulosin 0.4 mg Capsule 0.4 mg PO DAILY RF: 0 insulin aspart U-100 [Novolog U-100 Insulin aspart] 100 unit/mL Solution 1 sliding scale dose SUBCUT UD RF: 0 omeprazole 20 mg Capsule,Delayed Release(Dr/Ec) 20 mg PO BID RF: 0 docusate sodium 100 mg Tablet 100 mg PO DAILY RF: 0 dronedarone [Multaq] 400 mg Tablet 400 mg PO BID RF: 0 Discontinued doxycycline hyclate 100 mg Capsule 100 mg PO DAILY RF: 0 prednisone 20 mg Tablet 20 mg PO BID RF: 0 benzonatate 100 mg Capsule 100 mg PO TID PRN (Reason: Cough) RF: 0 codeine-guaifenesin [Robafen AC] 10-100 mg/5 mL Liquid 10 ml PO Q4-6H PRN (Reason: Cough) RF: 0 carvedilol 25 mg Tablet 25 mg PO BID RF: 0 amlodipine 5 mg Tablet 5 mg PO DAILY RF: 0 warfarin [Jantoven] 2 mg Tablet 2 mg PO DAILY RF: 0 indapamide 1.25 mg Tablet 1.25 mg PO QAM RF: 0 insulin detemir U-100 [Levemir U-100 Insulin] 100 unit/mL Solution 32 unit SUBCUT QPM RF: 0 sitagliptin [Januvia] 50 mg Tablet 50 mg PO DAILY RF: 0 Referrals: Nina,Kenrick [Other] - See Instructions ( Your appointment has been scheduled for [10/12/18] at [10:45 AM] If you cannot make this appointment, please call the office to reschedule ) ANDREI ROBERTS DR [Other] - See Instructions (Multiple voicemails left for Dr Jona Moreira's nurse. Please be sure to follow up within 4 weeks of discharge. ) Aroldo Abdullahi Dr-Nephrology [Other] - See Instructions ( Your appointment has been scheduled for [10/21/18] at [10:00 am] If you cannot make this appointment, please call the office to reschedule ) Jory Saunders [ADVANCE RN PRACTITIONER] - See Instructions ( Your appointment has been scheduled for [09/28/18] at [11:45 am] If you cannot make this appointment, please call the office to reschedule ) Discharge Instructions Patient Printed Instructions: Heart Failure (DC), Heart Healthy Diet (DC), Acute Wound Care (DC), Low-Sodium Diet (DC), Sternal Precautions (GEN), Steristrips (ED), Heart Catheterization (DC), CABG (Coronary Artery Bypass Graft ) (DC), Exercise Safety (GEN) Status ED Status: Left Department Discharge Information Discharge Date/Time: 09/22/18 12:31
--- NOTE | 2018-09-22 10:10 | P.PNCV ---
- Note Subjective/Hospital Course: A 78-year-old male, visiting from the [facility] here with his who presented to the emergency room with shortness of breath, cough, occasional sputum production greenish color, some congestion. No orthopnea, no lower extremity edema. No nausea or vomiting. No chest pain. He went to the Urgent Care and was prescribed some doxycycline, prednisone and antitussives, but did not feel any better. Started developing right-sided chest discomfort that was sharp, nonradiating, not associated with nausea. He was in a car. He drove for 3 days from the [place] area 08/26/2018 and arrived here on 08/29/2018. They did a complete workup on him and are treating him for bilateral infiltrates. He was also found to have acute kidney failure. He has a history of chronic kidney disease. He has a swedger in [place]. He also is on Coumadin for intermittent atrial fibrillation. They did a venous Doppler. There was no evidence of DVT. V/Q scan was low probability. He was further worked up. He had a mildly elevated troponin at 2.34. He was ruled in for a non-STEMI. He underwent cardiac catheterization showing 90% stenosis in the LAD, 95% proximal left circumflex, proximal left circumflex was 50, the RCA was 30%. The patient also was found to have moderate to severe mitral regurgitation. Cardiac catheterization revealed an ejection fraction of 45-50%, moderate to severe mitral valve regurgitation, trace tricuspid regurgitation. We were consulted to evaluate for coronary artery bypass grafting and mitral valve repair versus replacement. PAST MEDICAL HISTORY: Includes atrial fibrillation, diabetes mellitus, gastroesophageal reflux disease, glaucoma, gout, hypertension, prostate cancer, stage IV kidney disease, history of multiple myeloma where he was being worked up to have a bone biopsy. 09/14 on 3 liter nasal cannula feels a little better will check PA & lateral CXR today , also repeat labs pending pt on nonoliguric, no chest pain during the night 09/15 worsening renal indices Nephrology following , for surgery in am placement of perm cath as per Nephro decision no chest pain last night 09/17/18 Doing well s/p CABG x 4. Renal function is stable. Off pressors.~3kg up from preop weight. 09/18 Clinically and hemodynamically stable Normal sinus rhythm on IV amiodarone Change IV to p.o. amiodarone Transfer to [facility] Maintain chest tubes for now 09/19 Doing well Recurrent atrial fibrillation on IV amiodarone Chest tube continues to have significant serous drainage. Maintained to suction for now. Reevaluation for removal in a.m. Discharge planning 09/20 pt drained 140cc/ chest tube last pm and additional 160cc since this am will leave chest tube in back in NSR add po multag 09/21 on room air remains in afib rate controlled BB increased , on Multaq , add low dose eliquis ( was on coumadin at home, can be evaluated at later date to resume per his senior analyst in [facility] for transfer to in rehab in am chest tube removed without difficulty 09/22 pt doing well , has some edema lower ext, CXR also noted , mild interstitial edema discussed with Dr Ortiz, will add daily lasix, will need f/u on labs in rehab stable for dc to rehab today Objective: Vital Signs - 24 hr 09/21/18 10:00 09/21/18 11:00 09/21/18 12:00 Temperature 98.4 F Pulse Rate 83 83 80 Respiratory Rate 18 Blood Pressure 132/68 Pulse Oximetry 97 09/21/18 13:00 09/21/18 14:00 09/21/18 15:00 Temperature 98.5 F Pulse Rate 82 84 83 Respiratory Rate 18 Blood Pressure 138/64 Pulse Oximetry 98 09/21/18 15:43 09/21/18 16:00 09/21/18 17:00 Temperature Pulse Rate 76 78 76 Respiratory Rate 14 Blood Pressure Pulse Oximetry 09/21/18 18:00 09/21/18 19:00 09/21/18 20:00 Temperature 98.6 F Pulse Rate 74 81 84 Respiratory Rate 19 Blood Pressure 146/68 H Pulse Oximetry 98 98 09/21/18 21:00 09/21/18 22:00 09/21/18 22:03 Temperature Pulse Rate 80 79 65 Respiratory Rate 15 Blood Pressure Pulse Oximetry 95 09/21/18 23:00 09/22/18 00:00 09/22/18 01:00 Temperature 98.5 F Pulse Rate 70 80 70 Respiratory Rate 18 Blood Pressure 133/64 Pulse Oximetry 96 09/22/18 02:00 09/22/18 03:00 09/22/18 03:37 Temperature 98.4 F Pulse Rate 70 85 75 Respiratory Rate 18 14 Blood Pressure 137/62 Pulse Oximetry 97 09/22/18 04:00 09/22/18 05:00 09/22/18 06:00 Temperature Pulse Rate 81 81 78 Respiratory Rate Blood Pressure Pulse Oximetry 09/22/18 06:39 09/22/18 07:00 09/22/18 08:00 Temperature 98.0 F Pulse Rate 69 70 Respiratory Rate 17 18 Blood Pressure 114/55 L Pulse Oximetry 98 09/22/18 09:00 09/22/18 09:36 Temperature Pulse Rate 69 78 Respiratory Rate 18 Blood Pressure Pulse Oximetry 98 GENERAL: A&O x 3 SKIN: Warm and dry. prevena dressing to chest , incision intact left leg , + 2 edema some weeping from left leg incision HEAD: Normocephalic. EYES: No scleral icterus. No injection or drainage. NECK: Supple, trachea midline. No JVD or lymphadenopathy. CARDIOVASCULAR: Regular rate and rhythm without murmurs, gallops, or rubs. general edema RESPIRATORY: Breath sounds equal bilaterally. No accessory muscle use. GASTROINTESTINAL: Abdomen soft, non-tender, nondistended. MUSCULOSKELETAL: No cyanosis, or edema. BACK: Nontender without obvious deformity. No CVA tenderness. Labs: Laboratory Results - last 12 hr 09/22/18 09/22/18 05:16 05:16 WBC 8.0 RBC 2.81 L Hgb 9.5 L Hct 27.6 L MCV 98.1 MCH 33.6 MCHC 34.3 RDW 16.3 Plt Count 147 L MPV 8.0 Sodium 140 Potassium 4.2 Chloride 107 Carbon Dioxide 24.8 Anion Gap 8 BUN 60 H Creatinine 2.91 H Estimated GFR 21 L Random Glucose 175 H Calcium 7.4 L* Calcium Adj for Albumin 8.9 Albumin 2.1 L Result Diagrams: 09/22/18 05:16 09/22/18 05:16 - Plan (1) S/P CABG x 4 Plan: resp: pulm toileting on room air CV: on ASA, statin , BB , multag eliquis 2.5 bid GI: PPI motility Meds renal : add lasix po daily PT/ OOB pt requesting rehab post dc stable for dc to rehab (2) Non-ST elevation [place] (NSTEMI) Plan: ASA, statin, add low dose BB, stop norvasc for surgery Thur CXR improved / now on 2 liter nasal cannula (3) Stage 4 chronic kidney disease Plan: creatinine 4.13 non oliguric ? 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
[2018-09-22] MEDS ORDERED: Furosemide 40 MG Tablet PO SCH (10:30)
--- NOTE | 2018-09-22 11:21 | P.PNNP ---
Subjective Interval history: Sitting up in chair. Denies any shortness of breath, nausea, or vomiting. Pain is well controlled. Creatinine continues to improve at 2.9. <Kelly Miranda - Last Filed: 09/22/18 11:16> Physical Exam Vital signs: Vital Signs 09/21/18 12:00 09/21/18 13:00 09/21/18 14:00 Temperature Pulse Rate 80 82 84 Respiratory Rate Blood Pressure Pulse Oximetry 09/21/18 15:00 09/21/18 15:43 09/21/18 16:00 Temperature 98.5 F Pulse Rate 83 76 78 Respiratory Rate 18 14 Blood Pressure 138/64 Pulse Oximetry 98 09/21/18 17:00 09/21/18 18:00 09/21/18 19:00 Temperature 98.6 F Pulse Rate 76 74 81 Respiratory Rate 19 Blood Pressure 146/68 H Pulse Oximetry 98 09/21/18 20:00 09/21/18 21:00 09/21/18 22:00 Temperature Pulse Rate 84 80 79 Respiratory Rate Blood Pressure Pulse Oximetry 98 09/21/18 22:03 09/21/18 23:00 09/22/18 00:00 Temperature 98.5 F Pulse Rate 65 70 80 Respiratory Rate 15 18 Blood Pressure 133/64 Pulse Oximetry 95 96 09/22/18 01:00 09/22/18 02:00 09/22/18 03:00 Temperature 98.4 F Pulse Rate 70 70 85 Respiratory Rate 18 Blood Pressure 137/62 Pulse Oximetry 97 09/22/18 03:37 09/22/18 04:00 09/22/18 05:00 Temperature Pulse Rate 75 81 81 Respiratory Rate 14 Blood Pressure Pulse Oximetry 09/22/18 06:00 09/22/18 06:39 09/22/18 07:00 Temperature 98.0 F Pulse Rate 78 69 Respiratory Rate 17 18 Blood Pressure 114/55 L Pulse Oximetry 98 09/22/18 08:00 09/22/18 09:00 09/22/18 09:36 Temperature Pulse Rate 70 69 78 Respiratory Rate 18 Blood Pressure Pulse Oximetry 98 09/22/18 09:57 09/22/18 11:00 Temperature 97.9 F Pulse Rate 69 73 Respiratory Rate 18 Blood Pressure 102/55 L Pulse Oximetry 98 Intake & Output 09/21/18 09/22/18 09/22/18 18:59 06:59 18:59 Intake Total 975 / 975 240 / 240 Output Total 850 / 850 600 / 600 Balance 125 / 125 -360 / -360 Weight 101.2 kg Intake: Oral 975 / 975 240 / 240 Output: Urine 850 / 850 600 / 600 Other: Date of Last Bowel Movement 09/20/18 # Bowel Movements 0 Narrative: GENERAL: Well-nourished, well-developed patient. SKIN: Warm and dry. Prevenar dressing to chest , incision intact left leg , + 2 edema some weeping from left leg incision NECK: Supple, trachea midline. No JVD or lymphadenopathy. CARDIOVASCULAR: Regular rate and rhythm without murmurs, RESPIRATORY: Breath sounds equal bilaterally. No accessory muscle use. GASTROINTESTINAL: Abdomen soft, non-tender, nondistended. EXTREMITIES: Mild edema. Dressing on chest intact. NEUROLOGICAL: Awake, alert, and oriented x 3. Non-focal. - Urinary Catheter Management Indwelling Temp Sensing Catheter Cath placed during this visit: yes, but has since been removed by the nurse Reason for continuing: Not indwelling catheter Insertion date: 09/16/18 Insertion time: 08:00 Removal date: 09/17/18 Removal time: 06:00 <Kelly Miranda - Last Filed: 09/22/18 11:16> Vital signs: Vital Signs 09/21/18 22:03 09/21/18 23:00 09/22/18 00:00 Temperature 98.5 F Pulse Rate 65 70 80 Respiratory Rate 15 18 Blood Pressure 133/64 Pulse Oximetry 95 96 09/22/18 01:00 09/22/18 02:00 09/22/18 03:00 Temperature 98.4 F Pulse Rate 70 70 85 Respiratory Rate 18 Blood Pressure 137/62 Pulse Oximetry 97 09/22/18 03:37 09/22/18 04:00 09/22/18 05:00 Temperature Pulse Rate 75 81 81 Respiratory Rate 14 Blood Pressure Pulse Oximetry 09/22/18 06:00 09/22/18 06:39 09/22/18 07:00 Temperature 98.0 F Pulse Rate 78 69 Respiratory Rate 17 18 Blood Pressure 114/55 L Pulse Oximetry 98 09/22/18 08:00 09/22/18 09:00 09/22/18 09:36 Temperature Pulse Rate 70 69 78 Respiratory Rate 18 Blood Pressure Pulse Oximetry 98 09/22/18 09:57 09/22/18 11:00 Temperature 97.9 F Pulse Rate 69 73 Respiratory Rate 18 Blood Pressure 102/55 L Pulse Oximetry 98 Intake & Output 09/22/18 09/22/18 09/23/18 06:59 18:59 06:59 Intake Total 240 / 240 Output Total 600 / 600 Balance -360 / -360 Weight 101.2 kg Intake: Oral 240 / 240 Output: Urine 600 / 600 Other: Date of Last Bowel Movement 09/20/18 - Urinary Catheter Management Indwelling Temp Sensing Catheter Cath placed during this visit: no <Martha Ortiz - Last Filed: 09/22/18 22:03> Assessment and Plan - Assessment (1) Stage 4 chronic kidney disease Code(s): N18.4 - Chronic kidney disease, stage 4 (severe) Status: Acute (2) Non-ST elevation [place] (NSTEMI) Code(s): I21.4 - Non-ST elevation (NSTEMI) myocardial infarction Status: Acute (3) Dyspnea Code(s): R06.00 - Dyspnea, unspecified Status: Acute Qualifiers: Dyspnea type: unspecified Qualified Code(s): R06.00 - Dyspnea, unspecified (4) Diabetes mellitus Code(s): E11.9 - Type 2 diabetes mellitus without complications Status: Acute Qualifiers: Diabetes mellitus type: type 2 - Plan Patient with stage 4 chronic kidney disease. He has been following with Trading Floor Operator. As per patient he was told that he has GFR of 16 ml/min. Admitted with chest pain and diagnosed with NSTEMI. Post Cardiac surgery. Creatinine is stable at 2.9 today, adequate urinary output. Avoid nephrotoxins Fluid and electrolytes stable. Plan for [facility]. <Kelly Miranda - Last Filed: 09/22/18 11:16> - Assessment (1) Stage 4 chronic kidney disease Code(s): N18.4 - Chronic kidney disease, stage 4 (severe) Status: Acute (2) Non-ST elevation [place] (NSTEMI) Code(s): I21.4 - Non-ST elevation (NSTEMI) myocardial infarction Status: Acute (3) Dyspnea Code(s): R06.00 - Dyspnea, unspecified Status: Acute Qualifiers: Dyspnea type: unspecified Qualified Code(s): R06.00 - Dyspnea, unspecified (4) Diabetes mellitus Code(s): E11.9 - Type 2 diabetes mellitus without complications Status: Acute Qualifiers: Diabetes mellitus type: type 2 - Plan Patient with advance stage 4 chronic kidney disease. Now post CABG, Creatinine is stable, at 2.9. No urgent need for Dialysis. Patient for transfer to [place], to start Lasix, as has more edema. Follow the urine out put and BMP. <Martha Ortiz - Last Filed: 09/22/18 22:03>
== END 2018-09-22 12:31 | DRG 233 ==
LOC: NEPC 04:30 → NEDA 06:17 → H7ONC 11:17 → HCIS 16:30 → HCIN 09-11 22:33 → HCIS 09-16 07:24 → HCVI 09-16 14:53 → HCPC 09-18 14:22
PROVIDERS: ADMIT Family Medicine; ATTEND Family Medicine
DX: I25.10 Atherosclerotic heart disease of native coronary artery without angina pectoris; G47.00 Insomnia, unspecified; K59.00 Constipation, unspecified; I34.0 Nonrheumatic mitral (valve) insufficiency; H40.9 Unspecified glaucoma; D72.821 Monocytosis (symptomatic); Z95.0 Presence of cardiac pacemaker; E78.5 Hyperlipidemia, unspecified; N18.4 Chronic kidney disease, stage 4 (severe); Z85.46 Personal history of malignant neoplasm of prostate; I48.0 Paroxysmal atrial fibrillation; I50.23 Acute on chronic systolic (congestive) heart failure; E11.22 Type 2 diabetes mellitus with diabetic chronic kidney disease; C90.00 Multiple myeloma not having achieved remission; J90 Pleural effusion, not elsewhere classified; I21.4 Non-ST elevation (NSTEMI) myocardial infarction; I44.0 Atrioventricular block, first degree; Z87.891 Personal history of nicotine dependence; J18.9 Pneumonia, unspecified organism; I13.0 Hypertensive heart and chronic kidney disease with heart failure and stage 1 through stage 4 chronic kidney disease, or unspecified chronic kidney disease; Z79.01 Long term (current) use of anticoagulants; M10.9 Gout, unspecified; K21.9 Gastro-esophageal reflux disease without esophagitis
CPT/HCPCS: 36430; 71010; 71020; 71045; 71046; 76775; 76937; 78582; 80048; 80053; 80061; 81001; 82040; 82272; 82550; 82552; 82948; 82962; 83036; 83520; 83735; 83880; 84100; 84484; 85025; 85027; 85384; 85610; 85730; 86850; 86900; 86901; 86923; 87641; 88305; 88307; 90774; 90784; 93005; 93306; 93312; 93318; 93458; 93880; 93965; 93970; 93998; 94002; 94010; 94150; 94640; 94650; 94651; 94656; 94664; 94665; 94667; 96374; 97110; 97116; 97162; 97166; 97530; 99152; 99285; A9519; A9540; A9567; C1014; C1094; C1769; C1893; C8952; J0131; J0171; J0282; J0690; J0696; J1265; J1644; J1815; J1817; J1940; J2150; J2250; J2270; J2370; J2405; J2440; J2720; J2930; J3010; J3370; J3430; J3475; J3480; J7030; J7040; J7050; J7060; J7120; P9016; P9035; P9037; P9047; Q9967